=== PATIENT | male | born 1970 | race African-American/Black ===

== ENCOUNTER 2016-10-30 08:46 | Day surgery (SDC) | payer SELFPAY ==
[2016-10-30] MEDS ORDERED: INSULIN REG, HUMAN 100 UNIT/ML 3 ML VIAL (PYX) ONE (09:42)
[2016-10-30] MEDS ORDERED: METOCLOPRAMIDE HCL INJ/PF 10 MG/2 ML SDV ONE (10:02)
[2016-10-30] MEDS ORDERED: FAMOTIDINE INJ/PF 20 MG/2 ML SDV IV ONE (10:02)
[2016-10-30] MEDS ORDERED: NORMAL SALINE 500 ML IV ONE (10:15)
[2016-10-30] MEDS ORDERED: BUPIVACAINE HCL 0.25 % INJ/PF (2.5 MG/1 ML) 30 ML VIAL ONE (12:01)
[2016-10-30] MEDS ORDERED: BUPIVACAINE HCL 0.5 % INJ/PF 30 ML SDV ONE (12:01)
[2016-10-30] MEDS ORDERED: MIDAZOLAM 2 MG/2 ML INJ ONE (12:07)
[2016-10-30] MEDS ORDERED: FENTANYL CITRATE INJ/PF 100 MCG/2 ML AMPUL ONE (12:07)
[2016-10-30] MEDS ORDERED: PROPOFOL INJ 200 MG/20 ML VIAL IV ONE (12:07)
[2016-10-30] MEDS ORDERED: MORPHINE SULFATE 10 MG/ML INJ ONE (12:07)
[2016-10-30] MEDS ORDERED: BACITRACIN INJ 50,000 UNIT VIAL ONE (12:09)
[2016-10-30] MEDS ORDERED: LIDOCAINE 0.5% INJ-PF (5 MG/ML) 50 ML SDV ONE (12:17)
[2016-10-30] MEDS ORDERED: FENTANYL CITRATE INJ/PF 100 MCG/2 ML AMPUL IV PRN ×3 (12:43)
--- NOTE | 2016-10-30 12:52 | PDOC DISCHARGE SUMMARY ---
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 #2 tobacco use disorder. Date of Surgery: 10/30/16 Discharge Date: 10/30/16 Condition: Fair Treatment or Instructions: #1 activities within moderation encouraged. #2 follow up in my office by appointment in about 1 week. Call for appointment. #3 the wounds covered clean and dry until office visit. #4 hold off on school/work until evaluation in office. #5 may shower in 48 hours, keep operated area as dry as possible. #6 discharge from [facility] to when ASU criteria met. #7 medications per medication reconciliation sheet. Referrals: SALOMON HUNT MD [Primary Care Provider] - Discharge Diet: As Tolerated Respiratory Treatments at Home: Deep Breathing/Coughing Discharge Activity: Activity As Tolerated, Keep Legs Elevated Report the Following to Your Physician Immediately: Unusual Bleeding
--- NOTE | 2016-10-30 12:57 | Operative Report ---
Operative Report DATE OF SURGERY: 10/30/16 PREOPERATIVE DIAGNOSIS: #1 necrosis and left below-knee amputation site. #2 tobacco use disorder. #3 diabetes or prediabetes. #4 hypertension. POSTOPERATIVE DIAGNOSIS: #1 necrosis and left below-knee amputation site. #2 tobacco use disorder. #3 diabetes or prediabetes. #4 hypertension. OPERATION: Debridement of left below-knee amputation stump. SURGEON: MARIA LUISA JONES CABLE MAINTAINER: none ANESTHESIA: GA TISSUE REMOVED OR ALTERED: Left below-knee amputation stump COMPLICATIONS: None ESTIMATED BLOOD LOSS: 5 mL. INTRAOPERATIVE FINDINGS: Of a left below-knee amputation stump. Laterally on both sides adequate healing. In the central 3 cm soupy necrosis of tendons. The remaining tissues, after debridement were satisfactory. PROCEDURE: PROCEDURE: The left below-knee amputation was prepared with [Betadine] and draped out with sterile linen. After the"universal time-out", in which it was confirmed that the patient [did receive antibiotic], the procedure commenced. The patient was appropriately anesthetized. The wound was probed. The wound was debrided of non viable tissue using[ Rongeurs] with removal of loose debris, as well. The wound was irrigated with bacitracin. Several ralph were removed to facilitate access..The wound was now irrigated with saline and [Surgicel] placed within it, dressed with [Kerlix ] and the procedure concluded.
[2016-10-30] MEDS ORDERED: ACETAMINOPHEN 100 ML IV ONE (13:36)
[2016-10-30 15:29] VITALS: BP 177/105
== END 2016-10-30 15:15 | disposition home or self-care (01) ==
LOC: OROUT 08:46
PROVIDERS: ATTEND Surgery
PROC: 0LBR0ZZ Excision of Left Knee Tendon, Open Approach (ICD-10-PCS; principal; 2016-10-30 11:45)
DX: T81.4XXA Infection following a procedure, initial encounter (principal); E11.9 Type 2 diabetes mellitus without complications; F17.210 Nicotine dependence, cigarettes, uncomplicated; I73.9 Peripheral vascular disease, unspecified; Z88.8 Allergy status to other drugs, medicaments and biological substances; Z79.82 Long term (current) use of aspirin; Z79.899 Other long term (current) drug therapy
CPT/HCPCS: 82962; 11043; J2250; J3490; J2765; J2270; J1815; J2704; S0028; J0131; 1482; J3010

== ENCOUNTER 2016-11-20 07:33 | Emergency (ER) | payer SELFPAY ==
[2016-11-20] MEDS ORDERED: MORPHINE SULFATE 10 MG/ML INJ IV ONE ×2 (08:34→09:48)
[2016-11-20] MEDS ORDERED: NORMAL SALINE 1000 ML 1,000 ML IV PRN (08:34)
[2016-11-20] MEDS ORDERED: ONDANSETRON HCL INJ/PF 4 MG/2 ML SDV IV ONE (08:35)
[2016-11-20 09:21] LABS: ABSOLUTE BASOPHILS # (AUTO) 0.1 10^3/uL (0.0-0.2); ABSOLUTE EOSINOPHILS # (AUTO) 0.1 10^3/uL (0.0-0.6); ABSOLUTE MONOCYTES (AUTO) 0.5 10^3/uL (0.1-1.4); ABSOLUTE NEUT (AUTO) 7.4 10^3/uL (1.7-8.2); BASOPHILS % (AUTO) 0.7 % (0-2); EOSINOPHILS % (AUTO) 1.2 % (0-6); HEMATOCRIT 40.2 % (37.9-51.0); HEMOGLOBIN 13.2 g/dL (13.5-17.0); HGB HCT DIFFERENCE -0.6; LYMPHOCYTES % (AUTO) 19.9 % (13-45); MEAN CORPUSCULAR HEMOGLOBIN 27.8 pg (27.0-33.4); MEAN CORPUSCULAR HGB CONC 32.8 g/dL (32.0-36.0); MEAN CORPUSCULAR VOLUME 85 fl (80-97); MONOCYTES % (AUTO) 5.1 % (3-13); RED BLOOD COUNT 4.74 10^6/uL (4.35-5.55); RED CELL DISTRIBUTION WIDTH 13.9 % (11.5-14.0); SEGMENTED NEUTROPHILS % (AUTO) 73.1 % (42-78); WHITE BLOOD COUNT 10.2 10^3/uL (4.0-10.5)
[2016-11-20 09:23] LABS: PROTHROMBIN TIME 13.3 SEC (11.4-15.4)
[2016-11-20 09:24] LABS: PARTIAL THROMBOPLASTIN TIME 26.4 SEC (23.5-35.8)
[2016-11-20 09:36] LABS: ALANINE AMINOTRANSFERASE 28 U/L (21-72); ALBUMIN 3.7 g/dL (3.5-5.0); ALKALINE PHOSPHATASE 180 U/L (38-126); ANION GAP 15 (5-19); ASPARTATE AMINO TRANSFERASE 21 U/L (17-59); BILIRUBIN,TOTAL 0.8 mg/dL (0.2-1.3); BLOOD UREA NITROGEN 24 mg/dL (7-20); CALCIUM 9.8 mg/dL (8.4-10.2); CARBON DIOXIDE 31 mmol/L (22-30); CHLORIDE 91 mmol/L (98-107); GLUCOSE 227 mg/dL (75-110); LIPASE 336.5 U/L (23-300); POTASSIUM 3.3 mmol/L (3.6-5.0); SODIUM 137.2 mmol/L (137-145); TOTAL PROTEIN 7.7 g/dL (6.3-8.2)
[2016-11-20] MEDS ORDERED: PANTOPRAZOLE SODIUM 40 MG VIAL IV ONE (10:10)
--- NOTE | 2016-11-20 11:31 | ER Document Report ---
ED GI/ - General Chief Complaint: Abdominal Pain Stated Complaint: STOMACH PAIN Notes: Patient is a 46-year-old male presents emergency Department complaining umbilical abdominal pain and vomiting since Friday. Patient states that he has a history of chronic gastric ulcers that he normally takes Nexium for. Patient states that since Friday he hasn't been able to keep anything down with hematochezia. Patient has been localized to his umbilicus and does not radiate. Patient denies any alleviating factors. Otherwise he denies any dizziness, headache, chest pain, shortness of breath, dyspnea. Patient states his last bowel movement was closer to Friday and was normal has not had a bowel movement since. Past medical history significant for gastric ulcers, diabetes with recent left foot amputation due to Gangrene TRAVEL OUTSIDE OF THE [place] IN LAST 30 DAYS: No - Related Data Allergies/Adverse Reactions: promethazine HCl [From Phenergan] Adverse Reaction (Verified 11/20/16 07:37) Past Medical History - General Information source: Patient - Social History Smoking Status: Current Every Day Smoker Chew tobacco use (# tins/day): No Frequency of alcohol use: None Drug Abuse: None Family History: DM Patient has suicidal ideation: No Patient has homicidal ideation: No - Past Medical History Cardiac Medical History: Denies: Hx Coronary Artery Disease, Hx Heart Attack, Hx Hypertension Pulmonary Medical History: Denies: Hx Asthma, Hx Bronchitis, Hx COPD, Hx Pneumonia Neurological Medical History: Denies: Hx Cerebrovascular Accident, Hx Seizures Endocrine Medical History: Reports: Hx Diabetes Mellitus Type 1, Hx Diabetes Mellitus Type 2 - x > 10 years Renal/ Medical History: Denies: Hx Peritoneal Dialysis GI Medical History: Reports: Hx Gastritis, Hx Gastroesophageal Reflux Disease, Hx Ulcer. Denies: Hx Hiatal Hernia Musculoskeltal Medical History: Denies Hx Arthritis - Immunizations Hx Diphtheria, Pertussis, Tetanus Vaccination: Yes - 2007 Hx Pneumococcal Vaccination: 07/14/14 Review of Systems - Review of Systems Constitutional: No symptoms reported EENT: No symptoms reported Cardiovascular: No symptoms reported Respiratory: No symptoms reported Gastrointestinal: See HPI Genitourinary: No symptoms reported Male Genitourinary: No symptoms reported Musculoskeletal: No symptoms reported Skin: No symptoms reported Hematologic/Lymphatic: No symptoms reported Neurological/Psychological: No symptoms reported Physical Exam - Vital signs Vitals: Temp Pulse Resp BP Pulse Ox 97.7 F 109 H 16 121/84 98 11/20/16 07:37 11/20/16 07:37 11/20/16 07:37 11/20/16 07:37 11/20/16 07:37 - Notes Notes: PHYSICAL EXAM GENERAL: Alert, interacts well. HEAD: Normocephalic, atraumatic. EYES: Pupils equal, round, and reactive to light. Extraocular movements intact. ENT: Oral mucosa moist, tongue midline. NECK: Full range of motion. Supple. Trachea midline. LUNGS: Clear to auscultation bilaterally, no wheezes, rales, or rhonchi. No respiratory distress. HEART: Regular rate and rhythm. No murmurs, gallops, or rubs. ABDOMEN: Soft, nondistended, mild tenderness to palpation in the umbilicus.. No guarding, rebound, or rigidity.. Bowel sounds present in all 4 quadrants. EXTREMITIES: Moves all 4 extremities spontaneously, left foot amputation. Feeling well with out evidence of inflammation. No edema, radial and dorsalis pedis pulses 2/4 bilaterally. No cyanosis. NEUROLOGICAL: Alert and oriented x3. Normal speech. PSYCH: Normal affect, normal mood. SKIN: Warm, dry, normal turgor. No rashes or lesions noted. Course - Re-evaluation Re-evalutation: 11/20/16 12:15 Patient is a 46 male presented complaining of vomiting since Friday. Patient does have a known history of chronic ulcers. Patient is currently hemodynamically stable, no acute distress and afebrile. CBC did not reveal any acute leukocytosis or anemia. CMP was within normal limits, no evidence of acute renal failure or injury, elevated LFTs, elevated amylase indicating pancreatitis. Patient has not had any episodes of emesis in the department and is responded well to Zofran. 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 Per [facility] protocol and guidelines, this case was discussed with supervising physician Dr. Katina Sanchez prior to discharge - Vital Signs Vital signs: Temp Pulse Resp BP Pulse Ox 97.8 F 80 20 155/104 H 99 11/20/16 10:36 11/20/16 10:36 11/20/16 10:36 11/20/16 10:36 01/25/17 10:36 - Laboratory Result Diagrams: 11/20/16 08:57 11/20/16 08:57 Laboratory results interpreted by me: 11/20/16 11/20/16 08:57 08:57 Hgb 13.2 L Potassium 3.3 L Chloride 91 L Carbon Dioxide 31 H BUN 24 H Glucose 227 H Alkaline Phosphatase 180 H Lipase 336.5 H Discharge - Discharge Clinical Impression: Chronic gastric ulcer Qualifiers: Gastric ulcer complication status: without hemorrhage or perforation Qualified Code(s): K25.7 - Chronic gastric ulcer without hemorrhage or perforation Condition: Good Disposition: HOME, SELF-CARE Additional Instructions: ABDOMINAL PAIN: There are many causes of abdominal pain. Pain can mean a serious problem requiring surgery (such as appendicitis). It can also be an innocent problem that goes away on its own (such as a viral infection). Often, time must pass to determine the cause of pain. The physician does not feel that hospitalization is necessary, at present. Things may change within the next 24 hours. Call the doctor or come back for re- examination if any problems occur, such as: (1) Pain that becomes more severe, steady, or becomes concentrated in one specific area. Also, pain that is more severe with movement or coughing. (2) Vomiting that persists or becomes more frequent. (3) Blood in the vomitus, urine, or bowel movements. Blood in the stool may have a tarry or black appearance. (4) Shaking chills or fever greater than 100 degrees F. (5) The abdomen becomes more distended or swollen. (6) Bowel movements cease. (7) Failure to improve as expected. NORMAL EXAM AND WORKUP: At this time, your examination and workup show no significant abnormality. No significant abnormal physical findings are noted. All laboratory, EKG, and imaging (x-ray, CT scans, ultrasound) studies that were ordered show no significant abnormality. Although your examination and all studies that were ordered showed no significant abnormal finding, there are no examinations and no studies that are 100% accurate. There is always the possibility that some abnormality could exist and not be detected with physical examination or within the limits and capabilities of laboratory and other studies. You should return or follow up as you were instructed on your visit today for further evaluation if your symptoms do not resolve. PAIN MEDICATION INJECTION: You have received an injection of a pain medication. You should experience significant pain relief within 45 minutes. This drug is a narcotic - - it will impair your judgement, slow your reaction time and make you sleepy ( as well as relieve your pain). Narcotics also can cause nausea. You should not drive, work with machinery, or perform any task requiring mental alertness until all effects of the medication are gone -- six to eight hours. Do not take any alcohol, or sedatives, and do not take any other medication without checking with your physician. ANTINAUSEA MEDICATION: You have been given a medication to suppress nausea and vomiting. This type of medication can be given as a shot, pill, or suppository. It will usually last for many hours. Pills and shots usually last six to eight hours, suppositories last about 12 hours. For the typical illness, only one or two doses of the medication may be necessary. Mild lightheadedness may occur. This type of medicine can cause drowsiness. Do not drive or operate dangerous machinery while under its influence. Do not mix with alcohol. See your doctor at once if you have muscle spasms or tightness, or uncontrollable motions (particularly of the neck, mouth, or jaw). Persistent vomiting or severe lightheadedness should also be evaluated by the physician. ORAL NARCOTIC MEDICATION: You have been given a prescription for pain control. This medication is a narcotic. It's best taken with food, as nausea can result if taken on an empty stomach. Don't operate machinery or drive within six hours of taking this medication. Do not combine this medicine with alcohol, or with any medication which can cause sedation (such as cold tablets or sleeping pills) unless you get permission from the physician. Narcotics tend to cause constipation. If possible, drink plenty of fluids and eat a diet high in fiber and fruits. Please be aware that prescription narcotics also have the potential for abuse. People become addicted to these medications because of the general sense of wellbeing that they induce. This feeling along with a significant reduction in tension, anxiety, and aggression provides a stimulating seductive quality to these drugs. Once your pain is under control, we encourage you to discard your unused narcotics. FOLLOW-UP CARE: If you have been referred to a physician for follow-up care, call the physician s office for an appointment as you were instructed or within the next two days. If you experience worsening or a significant change in your symptoms, notify the physician immediately or return to the Emergency Department at any time for re-evaluation. Patient be sure to follow-up with her rice drier in the next 1-2 weeks. Prescriptions: Ondansetron [Zofran Odt 4 mg Tablet] 1 - 2 tab PO Q4H PRN #15 tab.rapdis PRN Reason: For Nausea/Vomiting Pantoprazole Sodium [Protonix] 40 mg PO DAILY #30 tablet.dr Forms: Elevated Blood Pressure Referrals: SALOMON HUNT MD [Primary Care Provider] - Follow up as needed
[2016-11-20 12:38] VITALS: BP 156/100
== END 2016-11-20 12:37 | disposition home or self-care (01) ==
LOC: ER 07:33
DX: K25.7 Chronic gastric ulcer without hemorrhage or perforation (principal); R10.33 Periumbilical pain; R11.10 Vomiting, unspecified; E11.9 Type 2 diabetes mellitus without complications; F17.200 Nicotine dependence, unspecified, uncomplicated; Z79.899 Other long term (current) drug therapy
CPT/HCPCS: 96376; 99284; 96361; 96374; 96375; 36415; 82150; 83690; 85025; 85610; 85730; 82272; 80053; J2270; S0164; J2405; J7030

== ENCOUNTER 2016-12-24 05:15 | Day surgery (SDC) | payer MEDICAID ==
[2016-12-18 12:02] LABS: HEMATOCRIT 37.3 % (37.9-51.0); HEMOGLOBIN 12.7 g/dL (13.5-17.0); HGB HCT DIFFERENCE 0.8; MEAN CORPUSCULAR HEMOGLOBIN 29.2 pg (27.0-33.4); MEAN CORPUSCULAR HGB CONC 34.2 g/dL (32.0-36.0); MEAN CORPUSCULAR VOLUME 85 fl (80-97); RED BLOOD COUNT 4.36 10^6/uL (4.35-5.55); RED CELL DISTRIBUTION WIDTH 14.4 % (11.5-14.0); WHITE BLOOD COUNT 10.2 10^3/uL (4.0-10.5)
[2016-12-18 12:25] LABS: ANION GAP 12 (5-19); BLOOD UREA NITROGEN 23 mg/dL (7-20); CALCIUM 10.4 mg/dL (8.4-10.2); CARBON DIOXIDE 24 mmol/L (22-30); CHLORIDE 103 mmol/L (98-107); CREATININE RESULT 0.93 mg/dL (0.52-1.25); GLUCOSE 163 mg/dL (75-110); POTASSIUM 4.8 mmol/L (3.6-5.0); SODIUM 139.4 mmol/L (137-145)
--- NOTE | 2016-12-19 08:18 | EKG REPORT ---
SEVERITY:- OTHERWISE NORMAL ECG - SINUS RHYTHM BORDERLINE LEFT AXIS DEVIATION : Confirmed by: Molly Vazquez MD 19-Dec-2016 08:16:51
[~2016-12-24 05:15] MED LIST: CEFAZOLIN 1 GM/D5W RTU 1 GM/50 ML RTUPB IV PRN; CEFAZOLIN SODIUM 1 GM in DEXTROSE 5%-WATER 50 ML IV PRN; LIDOCAINE 0.5% INJ-PF (5 MG/ML) 50 ML SDV INJ PRN; RINGERS SOLUTION,LACTATED 1,000 ML IV PRN
[2016-12-24] MEDS ORDERED: ALBUTEROL SULFATE 0.083% NEB 2.5 MG/3 ML AMPUL NEB ONE (06:16)
[2016-12-24] MEDS ORDERED: BACITRACIN INJ 50,000 UNIT VIAL ONE (06:35)
[2016-12-24] MEDS ORDERED: LIDOCAINE 0.5% INJ-PF (5 MG/ML) 50 ML SDV ONE (06:35)
[2016-12-24] MEDS ORDERED: BUPIVACAINE HCL 0.25 % INJ/PF (2.5 MG/1 ML) 30 ML VIAL ONE (06:35)
[2016-12-24] MEDS ORDERED: KETAMINE HCL INJ 500 MG/10 ML VIAL ONE (06:44)
[2016-12-24] MEDS ORDERED: MIDAZOLAM 2 MG/2 ML INJ ONE (06:44)
[2016-12-24] MEDS ORDERED: FENTANYL CITRATE INJ/PF 250 MCG/5 ML AMPULE ONE (06:44)
[2016-12-24] MEDS ORDERED: PROPOFOL INJ 200 MG/20 ML VIAL IV ONE (06:45)
[2016-12-24] MEDS ORDERED: INSULIN REG, HUMAN 100 UNIT/ML 3 ML VIAL (PYX) ONE (06:47)
[2016-12-24] MEDS ORDERED: METOCLOPRAMIDE HCL INJ/PF 10 MG/2 ML SDV ONE (06:48)
[2016-12-24] MEDS ORDERED: FAMOTIDINE INJ/PF 20 MG/2 ML SDV IV ONE (06:48)
[2016-12-24] MEDS ORDERED: SILVER SULFADIAZINE 1% CREAM 25 GM ONE (07:12)
[2016-12-24] MEDS ORDERED: COLLAGENASE CLOSTRIDIUM HIST. OINT 30 GM ONE (07:14)
[2016-12-24] MEDS ORDERED: MEPERIDINE HCL/PF INJ 25 MG/1 ML DISP.SYRIN IV PRN (07:52)
[2016-12-24] MEDS ORDERED: FENTANYL CITRATE INJ/PF 100 MCG/2 ML AMPUL IV PRN ×3 (07:52)
[2016-12-24] MEDS ORDERED: ONDANSETRON HCL INJ/PF 4 MG/2 ML SDV IV PRN (07:52)
[2016-12-24] MEDS ORDERED: DIPHENHYDRAMINE HCL 50 MG/ML VIAL IV PRN (07:52)
[2016-12-24] MEDS ORDERED: MORPHINE SULFATE 10 MG/ML INJ IV PRN (07:52)
[2016-12-24] MEDS ORDERED: OXYCODONE-ACETAMINOPHEN 5-325 MG TABLET PO PRN ×2 (07:52)
--- NOTE | 2016-12-24 08:54 | PDOC DISCHARGE SUMMARY ---
Discharge Summary (SDC) - Discharge Final Diagnosis: #1 necrotic left below-knee amputation site. #2 diabetes mellitus P #3 hypertension. #4 tobacco use disorder. Date of Surgery: 12/24/16 Discharge Date: 12/24/16 Condition: Good Treatment or Instructions: #1 activities within moderation encouraged. #2 follow up in my office by appointment in about 1 week. Call for appointment. #3 the wounds covered clean and dry until office visit. #4 hold off on school/work until evaluation in office. #5 may shower in 48 hours, keep operated area as dry as possible. #6 discharge from ambulatory when ASU criteria met. #7 medications per medication reconciliation sheet. #8 May have one Percocet up to every 2 hours when necessary for pain greater than 4 out of 10 while in the ASU Referrals: SALOMON HUNT MD [Primary Care Provider] - Discharge Diet: As Tolerated Respiratory Treatments at Home: Deep Breathing/Coughing Discharge Activity: Activity As Tolerated Report the Following to Your Physician Immediately: Shortness of Breath, Unusual Bleeding
--- NOTE | 2016-12-24 10:14 | Operative Report ---
Operative Report DATE OF SURGERY: 12/24/16 PREOPERATIVE DIAGNOSIS: #1 necrotic left below-knee amputation site. #2 diabetes mellitus P. #3 hypertension. #4 tobacco use disorder. POSTOPERATIVE DIAGNOSIS: #1 necrotic left below-knee amputation site. #2 diabetes mellitus P. #3 hypertension. #4 tobacco use disorder. OPERATION: Debridement of left below-knee amputation stump. SURGEON: MARIA LUISA JONES TAPE LIBRARIAN: DANIELLE VIGIL ANESTHESIA: Moderate Sedation TISSUE REMOVED OR ALTERED: Necrotic skin and subcutaneous tissue COMPLICATIONS: None ESTIMATED BLOOD LOSS: 5 mL. INTRAOPERATIVE FINDINGS: Of a mostly healed left below-knee amputation stump. An open area in the middle is about 2 cm across with some necrotic skin and subcutaneous tissues. It does seem to have healed deep, the bone is far away. Still in place and these were removed. PROCEDURE: PROCEDURE: The [left foot ]was prepared with [Betadine] and draped out with sterile linen. After the"universal time-out", in which it was confirmed that the patient [did receive antibiotic], the procedure commenced. The patient was appropriately anesthetized. The wound was probed. The wound was debrided of non viable tissue using curettes with removal of loose debris, as well. The wound was irrigated with [ Peroxide] .The wound was now irrigated with saline and Xeroform placed on it, dressed with [Kerlix] and the procedure concluded. The bindery assistant provided retraction, thus facilitating the operative view. Controlled bleeding. Cleaned skin and applied dressings.
[2016-12-24 11:18] VITALS: BP 176/110
[2016-12-24] MEDS ORDERED: LIDOCAINE 2% INJ-PF (20 MG/ML) 10 ML AMPUL ONE (12:24)
== END 2016-12-24 09:55 | disposition home or self-care (01) ==
LOC: OROUT 05:15
PROVIDERS: ATTEND Surgery
PROC: 0JBP0ZZ Excision of Left Lower Leg Subcutaneous Tissue and Fascia, Open Approach (ICD-10-PCS; principal; 2016-12-24 07:30)
DX: Z89.512 Acquired absence of left leg below knee (principal); E11.9 Type 2 diabetes mellitus without complications; I10 Essential (primary) hypertension; I73.9 Peripheral vascular disease, unspecified; F17.210 Nicotine dependence, cigarettes, uncomplicated; Z79.899 Other long term (current) drug therapy; Z79.82 Long term (current) use of aspirin; Z88.8 Allergy status to other drugs, medicaments and biological substances
CPT/HCPCS: 93005; 36415; 82962; 85027; 80048; 93010; 94640; 11042; J2250; J3490 ×4; J0690; J3010; J2765; J1815; S0020; J2704; S0028; 400

== ENCOUNTER 2018-10-29 09:01 | Emergency (ER) | payer SELFPAY ==
[2018-10-29] MEDS ORDERED: METOCLOPRAMIDE HCL ORAL SOLN 10 MG/10 ML UDCUP PO ONE (09:30)
[2018-10-29] MEDS ORDERED: MAG HYDROX/AL HYDROX/SIMETH SUSP 30 ML UDCUP PO ONE (09:30)
[2018-10-29] MEDS ORDERED: LIDOCAINE 2% VISCOUS SOLN 20 ML UDCUP PO ONE (09:30)
--- NOTE | 2018-10-29 09:31 | ER Document Report ---
ED Medical Screen (RME) - General Chief Complaint: Abdominal Pain Stated Complaint: ABDOMINAL PAIN Time Seen by Provider: 10/29/18 09:30 TRAVEL OUTSIDE OF THE [place] IN LAST 30 DAYS: No - Related Data Allergies/Adverse Reactions: promethazine HCl [From Phenergan] Adverse Reaction (Verified 10/29/18 09:02) Past Medical History - Social History Frequency of alcohol use: None Drug Abuse: None - Past Medical History Cardiac Medical History: Denies: Hx Coronary Artery Disease, Hx Heart Attack, Hx Hypertension Pulmonary Medical History: Denies: Hx Asthma, Hx Bronchitis, Hx COPD, Hx Pneumonia Neurological Medical History: Denies: Hx Cerebrovascular Accident, Hx Seizures Endocrine Medical History: Reports: Hx Diabetes Mellitus Type 1, Hx Diabetes Mellitus Type 2 - x > 10 years Renal/ Medical History: Denies: Hx Peritoneal Dialysis GI Medical History: Reports: Hx Gastritis, Hx Gastroesophageal Reflux Disease, Hx Ulcer. Denies: Hx Hiatal Hernia Musculoskeltal Medical History: Denies Hx Arthritis - Immunizations Hx Diphtheria, Pertussis, Tetanus Vaccination: Yes - 2007 Physical Exam - Vital signs Vitals: Temp Pulse Resp BP Pulse Ox 97.9 F 92 16 115/77 100 10/29/18 09:11 10/29/18 09:11 10/29/18 09:11 10/29/18 09:11 10/29/18 09:11 Course - Re-evaluation Re-evalutation: 10/29/18 09:31 48-year-old male with recurrent abdominal pain. Has been started on blood pressure medications as well which he says normally he might. He is tender left upper quadrant. I have seen and performed a rapid medical screening examination on this patient, workup has been initiated however there will require further evaluation reassessment and disposition determination from a secondary provider. - Vital Signs Vital signs: Temp Pulse Resp BP Pulse Ox 97.9 F 92 16 115/77 100 10/29/18 09:11 10/29/18 09:11 10/29/18 09:11 10/29/18 09:11 10/29/18 09:11 Doctor's Discharge - Discharge Referrals: SALOMON HUNT MD [Primary Care Provider] - Follow up as needed
[2018-10-29 09:52] LABS: ABSOLUTE EOSINOPHILS # (AUTO) 0.1 10^3/uL (0.0-0.6); ABSOLUTE LYMPHOCYTES (AUTO) 1.7 10^3/uL (0.5-4.7); ABSOLUTE MONOCYTES (AUTO) 0.3 10^3/uL (0.1-1.4); ABSOLUTE NEUT (AUTO) 7.7 10^3/uL (1.7-8.2); BASOPHILS % (AUTO) 0.5 % (0-2); HEMATOCRIT 36.2 % (37.9-51.0); HEMOGLOBIN 12.3 g/dL (13.5-17.0); MEAN CORPUSCULAR HEMOGLOBIN 29.4 pg (27.0-33.4); MEAN CORPUSCULAR HGB CONC 33.9 g/dL (32.0-36.0); MEAN CORPUSCULAR VOLUME 87 fl (80-97); MONOCYTES % (AUTO) 3.3 % (3-13); PLATELET COUNT 314 10^3/uL (150-450); RED BLOOD COUNT 4.17 10^6/uL (4.35-5.55); RED CELL DISTRIBUTION WIDTH 12.2 % (11.5-14.0); SEGMENTED NEUTROPHILS % (AUTO) 78.2 % (42-78); TOTAL CELLS COUNTED % (AUTO) 100 %; WHITE BLOOD COUNT 9.8 10^3/uL (4.0-10.5)
--- NOTE | 2018-10-29 09:58 | ER Document Report ---
ED General - General Chief Complaint: Abdominal Pain Stated Complaint: ABDOMINAL PAIN Time Seen by Provider: 10/29/18 09:30 Mode of Arrival: Ambulatory TRAVEL OUTSIDE OF THE [place] IN LAST 30 DAYS: No - HPI Notes: 48-year-old male with a history of GERD, type 2 diabetic hypertension as well as constipation presents ED with complaints constipation for the last few days. Patient was concerned about not having a bowel movement as well as having slight abdominal pain. Patient has been seen by Dr. Golden, configuration management advisor 2 months ago for having GERD, did have an endoscopy which was negative for any acute findings. Patient states he has been eating a high processed diet over the holidays. Has not tried any [id number]-[id number] stool softeners or laxatives. Reports he is passing flatus. Pt not noncompliant with his diabetic medication eating and drinking without issues. Has sometimes taken his omeprazole but commonly forgets. Denies fevers, chills, chest pain,palpitations, shortness of breath, dyspnea, nausea, vomiting, diarrhea, hematuria,blurred vision, double vision, loss of vision, speech changes, LH, dizziness, syncope, headaches, wheezing, ST, URI, neck pain, weakness, bowel or bladder dysfunction, saddle anesthesia, numbness or tingling in bilateral upper or lower extremities equally, muscle paralysis, weakness in bilateral upper or lower extremities eq ually or rash. - Related Data Allergies/Adverse Reactions: promethazine HCl [From Phenergan] Adverse Reaction (Verified 10/29/18 09:02) Past Medical History - General Information source: Patient - Social History Smoking Status: Current Every Day Smoker Frequency of alcohol use: None Drug Abuse: None Family History: DM Patient has suicidal ideation: No Patient has homicidal ideation: No - Past Medical History Cardiac Medical History: Denies: Hx Coronary Artery Disease, Hx Heart Attack, Hx Hypertension Pulmonary Medical History: Denies: Hx Asthma, Hx Bronchitis, Hx COPD, Hx Pneumonia Neurological Medical History: Denies: Hx Cerebrovascular Accident, Hx Seizures Endocrine Medical History: Reports: Hx Diabetes Mellitus Type 1, Hx Diabetes Mellitus Type 2 - x > 10 years Renal/ Medical History: Denies: Hx Peritoneal Dialysis GI Medical History: Reports: Hx Gastritis, Hx Gastroesophageal Reflux Disease, Hx Ulcer. Denies: Hx Hiatal Hernia Musculoskeletal Medical History: Denies Hx Arthritis - Immunizations Hx Diphtheria, Pertussis, Tetanus Vaccination: Yes - 2007 Hx Pneumococcal Vaccination: 07/14/14 Review of Systems - Review of Systems Constitutional: No symptoms reported EENT: No symptoms reported Cardiovascular: No symptoms reported Respiratory: No symptoms reported Gastrointestinal: See HPI Genitourinary: No symptoms reported Male Genitourinary: No symptoms reported Musculoskeletal: No symptoms reported Skin: No symptoms reported Hematologic/Lymphatic: No symptoms reported Neurological/Psychological: No symptoms reported Physical Exam - Vital signs Vitals: Temp Pulse Resp BP Pulse Ox 97.9 F 92 16 115/77 100 10/29/18 09:11 10/29/18 09:11 10/29/18 09:11 10/29/18 09:11 10/29/18 09:11 - Notes Notes: PHYSICAL EXAMINATION: GENERAL: Well-appearing, well-nourished and in no acute distress. HEAD: Atraumatic, normocephalic. EYES: Pupils equal round and reactive to light, extraocular movements intact, sclera anicteric, conjunctiva are normal. ENT: nares patent, oropharynx clear without exudates. Moist mucous membranes. NECK: Normal range of motion, supple without lymphadenopathy LUNGS: Breath sounds clear to auscultation bilaterally and equal. No wheezes rales or rhonchi. HEART: Regular rate and rhythm without murmurs ABDOMEN: Soft, nontender, normoactive bowel sounds. No guarding, no rebound. No masses appreciated. CVA tenderness appreciated bilaterally EXTREMITIES: Normal range of motion, no pitting or edema. No cyanosis. NEUROLOGICAL: No focal neurological deficits. Moves all extremities spontaneously and on command. PSYCH: Normal mood, normal affect. SKIN: Warm, Dry, normal turgor, no rashes or lesions noted. Course - Re-evaluation Re-evalutation: 10/30/18 14:02 48-year-old male afebrile mood stable mild abdominal pain and not having a bowel movement in the last 3-4 days. Negative for leukocytosis or anemia, CMP negative for hepatic or renal dysfunction, lipase normal. Abdominal x-ray negative for free air, nonobstructive bowel gas pattern. Patient noted to have a large amount of stool within the large intestine and colon, no impaction. Patient's blood sugar elevated, in the 450s, patient reports he was not taking his diabetic medication, IV fluids given as well as insulin, on repeat Accu- Chek, patient's blood sugars still in the 400s, no other liter of IV fluids given as well as 10 mg of insulin, and recheck blood sugar in the 250s. Patient educated about taking his diabetic medication as well as his acid reflux medication. Advised him to follow-up with gastroenterology as well as his primary care provider. Advised to increase hydration, follow a high-fiber diet, take asia-dge-yyilzky stool softeners. Patient has a typical pattern of not having a bowel movement for 3-4 days which is his usual. Reports he came to the ED because his wanted him checked out. Patient was seen today for abdominal pain. After review of laboratory studies and radiologic studies there are no signs of acute abdomen or other life-threatening ailments. I did consider acute appendicitis, peritonitis, urinary tract infection, cholelithiasis, cholecystitis, abdominal aortic aneurysm, intestinal obstruction, diverticulitis/ diverticulosis and pyelonephritis. At this time I feel the patient is stable for discharge is instructed to follow up with her primary care physician in 2-3 days return to emergency department for worsening symptoms or lack of resolution of symptoms in the next 24-48 hours. - Vital Signs Vital signs: Temp Pulse Resp BP Pulse Ox 97.9 F 98 16 132/90 H 100 10/29/18 09:11 10/29/18 10:20 10/29/18 09:11 10/29/18 10:20 10/29/18 09:11 - Laboratory Result Diagrams: 10/29/18 09:39 10/29/18 09:39 Laboratory results interpreted by me: 10/29/18 10/29/18 10/29/18 09:39 09:39 11:45 RBC 4.17 L Hgb 12.3 L Hct 36.2 L Seg Neutrophils % 78.2 H Sodium 133.8 L BUN 25 H Glucose 444 H* POC Glucose 412 H* Alkaline Phosphatase 196 H Lipase 747.1 H 10/29/18 13:31 RBC Hgb Hct Seg Neutrophils % Sodium BUN Glucose POC Glucose 256 H Alkaline Phosphatase Lipase Discharge - Discharge Clinical Impression: Hyperglycemia Constipation Qualifiers: Constipation type: other constipation type Qualified Code(s): K59.09 - Other constipation Condition: Stable Disposition: HOME, SELF-CARE Instructions: Abdominal Pain ([facility]), Constipation ([facility]), Hyperglycemia ([facility]) Additional Instructions: Return immediately for any new or worsening symptoms. Follow up with primary care provider, call tomorrow to make followup appointment. Forms: Return to Work Referrals: SALOMON HUNT MD [Primary Care Provider] - Follow up tomorrow DERIAN SCHUMACHER MD [ACTIVE STAFF] - Follow up as needed
--- NOTE | 2018-10-29 10:08 | RADIOLOGY REPORT (SQ) ---
EXAM DESCRIPTION: ABDOMEN 2 VIEWS COMPLETED DATE/TIME: 10/29/2018 9:59 am REASON FOR STUDY: constipation COMPARISON: 09/20/2015 NUMBER OF VIEWS: Two views. TECHNIQUE: Supine and erect/decubitus radiographic images of the abdomen acquired. LIMITATIONS: None. FINDINGS: FREE AIR: None. No abnormal gas collections. LUNG BASES: Clear. BOWEL GAS PATTERN: Large burden of stool in the left and right colon with dense stool balls in the re ctum. CALCIFICATIONS: No suspicious calcifications. SOFT TISSUES: No gross mass or suggestion of organomegaly. HARDWARE: None in the abdomen. BONES: No acute fracture. No worrisome bone lesions. OTHER: No other significant finding. IMPRESSION: Nonobstructive pattern of bowel gas. No free air in the abdomen. Large burden of stool in the left and right colon with dense stool balls in the rectum. TECHNICAL DOCUMENTATION: JOB ID: [id number] [email or web address]- All Rights Reserved Reading location - IP/workstation name: [email or web address]
[2018-10-29 10:22] VITALS: BP 132/90
[2018-10-29 10:24] LABS: ALANINE AMINOTRANSFERASE 23 U/L (21-72); ALKALINE PHOSPHATASE 196 U/L (38-126); ANION GAP 10 (5-19); ASPARTATE AMINO TRANSFERASE 22 U/L (17-59); BILIRUBIN,DIRECT 0.3 mg/dL (0.0-0.4); BILIRUBIN,TOTAL 0.4 mg/dL (0.2-1.3); BLOOD UREA NITROGEN 25 mg/dL (7-20); CALCIUM 9.9 mg/dL (8.4-10.2); CARBON DIOXIDE 25 mmol/L (22-30); CHLORIDE 99 mmol/L (98-107); LIPASE 747.1 U/L (23-300); POTASSIUM 4.9 mmol/L (3.6-5.0); SODIUM 133.8 mmol/L (137-145); TOTAL PROTEIN 7.3 g/dL (6.3-8.2)
[2018-10-29 10:35] LABS: GLUCOSE 444 mg/dL (75-110)
[2018-10-29] MEDS ORDERED: NORMAL SALINE 1000 ML 1,000 ML IV ONE (10:44)
[2018-10-29] MEDS ORDERED: INSULIN REG, HUMAN 100 UNIT/ML 3 ML VIAL (PYX) IV ONE ×2 (10:44→11:54)
[2018-10-29] MEDS ORDERED: NORMAL SALINE 1000 ML 1,000 ML IV PRN (11:53)
== END 2018-10-29 13:54 | disposition home or self-care (01) ==
LOC: ER 09:01
DX: E11.65 Type 2 diabetes mellitus with hyperglycemia (principal); R10.9 Unspecified abdominal pain; K59.09 Other constipation; K21.9 Gastro-esophageal reflux disease without esophagitis; F17.200 Nicotine dependence, unspecified, uncomplicated
CPT/HCPCS: 99284; 96360; 96361; 36415; 82962; 83690; 85025; 80053; 74019; J3490; J1815; J7030

== ENCOUNTER 2019-08-04 13:21 | Emergency (ER) | payer OTHER ==
[2019-08-04 13:40] VITALS: BP 124/76
--- NOTE | 2019-08-04 14:02 | ER Document Report ---
ED Medical Screen (RME) - General Chief Complaint: Abdominal Pain Stated Complaint: ABDOMINAL PAIN Time Seen by Provider: 08/04/19 13:49 Primary Care Provider: SALOMON HUNT MD [Primary Care Provider] - Follow up as needed Notes: Patient is a 49-year-old male who presents the emergency department with a chief complaint of abdominal pain. The pain is in his right lower quadrant. He states that every time he eats he feels the food gets stuck in his right lower quadrant. He was placed on Dulcolax. He takes them as needed and sometimes takes 3 pills at a time, but does not take Dulcolax every day. Patient's last bowel movement was 3 days ago. Patient states that he eats a lot of fast food. He does not drink a lot of water. Exam: Soft mildly tender right lower quadrant. I have greeted and performed a rapid initial assessment of this patient. A comprehensive ED assessment and evaluation of the patient, analysis of test results and completion of medical decision making process will be conducted by an additional ED providers. TRAVEL OUTSIDE OF THE [place] IN LAST 30 DAYS: No - Related Data Allergies/Adverse Reactions: promethazine HCl [From Phenergan] Adverse Reaction (Verified 10/29/18 09:02) Past Medical History - Past Medical History Cardiac Medical History: Denies: Hx Coronary Artery Disease, Hx Heart Attack, Hx Hypertension Pulmonary Medical History: Denies: Hx Asthma, Hx Bronchitis, Hx COPD, Hx Pneumonia Neurological Medical History: Denies: Hx Cerebrovascular Accident, Hx Seizures Endocrine Medical History: Reports: Hx Diabetes Mellitus Type 1, Hx Diabetes Mellitus Type 2 - x > 10 years Renal/ Medical History: Denies: Hx Peritoneal Dialysis GI Medical History: Reports: Hx Gastritis, Hx Gastroesophageal Reflux Disease, Hx Ulcer. Denies: Hx Hiatal Hernia Musculoskeltal Medical History: Denies Hx Arthritis - Immunizations Hx Diphtheria, Pertussis, Tetanus Vaccination: Yes - 2007 Physical Exam - Vital signs Vitals: Temp Pulse Resp BP Pulse Ox 97.9 F 81 20 124/76 98 08/04/19 13:39 08/04/19 13:39 08/04/19 13:39 08/04/19 13:39 08/04/19 13:39 Course - Vital Signs Vital signs: Temp Pulse Resp BP Pulse Ox 97.9 F 81 20 124/76 98 08/04/19 13:39 08/04/19 13:39 08/04/19 13:39 08/04/19 13:39 08/04/19 13:39 Doctor's Discharge - Discharge Referrals: SALOMON HUNT MD [Primary Care Provider] - Follow up as needed
--- NOTE | 2019-08-04 14:19 | RADIOLOGY REPORT (SQ) ---
EXAM DESCRIPTION: KUB/ABDOMEN (SINGLE VIEW) COMPLETED DATE/TIME: 08/04/2019 2:09 pm REASON FOR STUDY: abd pain; constipation COMPARISON: 10/29/2018 NUMBER OF VIEWS: One view. TECHNIQUE: Supine radiographic image of the abdomen acquired. LIMITATIONS: None. FINDINGS: BOWEL GAS PATTERN: Normal bowel gas pattern. No dilated loops. Moderate formed stool thro ughout the colon. CALCIFICATIONS: No suspicious calcifications. SOFT TISSUES: No gross mass or suggestion of organomegaly. HARDWARE: None in the abdomen. BONES: No acute fracture. No worrisome bone lesions. OTHER: No other significant finding. IMPRESSION: No evidence of acute intra-abdominal/pelvic process. Moderate formed stool throughout t he colon. TECHNICAL DOCUMENTATION: JOB ID: [id number] [employer]- All Rights Reserved Reading location - IP/workstation name: [email or web address]
--- NOTE | 2019-08-05 03:13 | ER Document Report ---
Entered by KEO MYERS SCRIBE 08/04/19 [id number] Acting as scribe for:OFELIA ODELL DO ED GI/ - General Chief Complaint: Constipation Stated Complaint: ABDOMINAL PAIN Time Seen by Provider: 08/04/19 13:49 Primary Care Provider: SALOMON HUNT MD [Primary Care Provider] - Follow up in 3-5 days Mode of Arrival: Ambulatory Information source: Patient Notes: Patient is a 49-year-old male status post left BKA who presents to the emergency department today with complaints of constipation. Patient states he has no pain associated with this. Patient states every time he eats food he feels like "it gets stuck right here" and he points to the right side of his abdomen. Patient states this has been going on for several months. Patient states he can only usually have bowel movements if he takes Dulcolax. Patient states his last bowel movement was 4 days ago. Patient mentions that he knows he does not drink enough water. Patient also adds that he has numbness and tingling in his right foot which has been there for several months. Patient denies any flank pain, urinary symptoms, vomiting, diarrhea, or fevers. TRAVEL OUTSIDE OF THE [place] IN LAST 30 DAYS: No - Related Data Allergies/Adverse Reactions: promethazine HCl [From Phenergan] Adverse Reaction (Verified 10/29/18 09:02) Past Medical History - General Information source: Patient - Social History Smoking Status: Current Every Day Smoker Cigarette use (# per day): Yes Frequency of alcohol use: None Drug Abuse: None Lives with: Family Family History: Reviewed & Not Pertinent, DM Patient has suicidal ideation: No Patient has homicidal ideation: No Endocrine Medical History: Reports: Hx Diabetes Mellitus Type 2 GI Medical History: Reports: Hx Gastritis, Hx Gastroesophageal Reflux Disease, Hx Ulcer Past Surgical History: Reports: Other - left BKA - Immunizations Hx Diphtheria, Pertussis, Tetanus Vaccination: Yes - 2007 Hx Pneumococcal Vaccination: 07/14/14 Review of Systems - Review of Systems Constitutional: denies: Fever EENT: No symptoms reported Cardiovascular: No symptoms reported Respiratory: No symptoms reported Gastrointestinal: See HPI, Constipation. denies: Diarrhea, Vomiting Genitourinary: denies: Dysuria, Flank pain Male Genitourinary: No symptoms reported Musculoskeletal: No symptoms reported Skin: No symptoms reported Hematologic/Lymphatic: No symptoms reported Neurological/Psychological: See HPI, Other - right foot feels numb and tingly -: Yes All other systems reviewed and negative Physical Exam - Vital signs Vitals: Temp Pulse Resp BP Pulse Ox 97.9 F 81 20 124/76 98 08/04/19 13:39 08/04/19 13:39 08/04/19 13:39 08/04/19 13:39 08/04/19 13:39 Interpretation: Normal - General General appearance: Appears well, Alert - HEENT Head: Normocephalic, Atraumatic Eyes: Normal Pupils: PERRL - Respiratory Respiratory status: No respiratory distress Chest status: Nontender Breath sounds: Normal Chest palpation: Normal - Cardiovascular Rhythm: Regular Heart sounds: Normal auscultation Murmur: No - Abdominal Inspection: Normal Distension: No distension Bowel sounds: Normal Tenderness: Nontender Organomegaly: No organomegaly - Back Back: Normal, Nontender - Extremities General upper extremity: Normal inspection, Nontender, Normal color, Normal ROM, Normal temperature General lower extremity: Normal inspection, Nontender, Normal color, Normal ROM, Normal temperature, Normal weight bearing, Other - Left BKA Excellent capillary refill bilaterally. Pulses intact throughout.. No: Rony's sign - Neurological Neuro grossly intact: Yes Cognition: Normal Orientation: AAOx4 Slater Coma Scale Eye Opening: Spontaneous Sadie Coma Scale Verbal: Oriented Slater Coma Scale Motor: Obeys Commands Sadie Coma Scale Total: 15 Speech: Normal Motor strength normal: LUE, RUE, LLE, RLE Sensory: Normal - Psychological Associated symptoms: Normal affect, Normal mood - Skin Skin Temperature: Warm Skin Moisture: Dry Skin Color: Normal Course - Re-evaluation Re-evalutation: Patient is a pleasant 49-year-old male who comes in come complaining of feeling of fullness. Patient states he has been constipated and also complaining of pain in right leg. Patient is a BKA on the left. Pain is consistent with neuropathy. No acute findings on x-ray but patient does appear constipated. Encouraged to take Colace twice a day and drink more water. Otherwise vitals are stable. Benign abdominal exam. No evidence for arterial insufficiency. Stable for discharge. Return if any further concerns. Understands and agrees with plan. Grateful for care. - Vital Signs Vital signs: Temp Pulse Resp BP Pulse Ox 97.9 F 81 20 124/76 98 08/04/19 13:39 08/04/19 13:39 08/04/19 13:39 08/04/19 13:39 08/04/19 13:39 Discharge - Discharge Clinical Impression: Neuropathy Constipation Qualifiers: Constipation type: unspecified constipation type Qualified Code(s): K59.00 - Constipation, unspecified Condition: Stable Disposition: HOME, SELF-CARE Instructions: Constipation ([facility]), Neuropathy ([facility]) Prescriptions: Docusate Sodium [Colace 100 mg Capsule] 100 mg PO BID #60 capsule Gabapentin [Neurontin 300 mg Capsule] 300 mg PO Q12 #60 capsule Referrals: SALOMON HUNT MD [Primary Care Provider] - Follow up in 3-5 days I personally performed the services described in the documentation, reviewed and edited the documentation which was dictated to the scribe in my presence, and it accurately records my words and actions.
== END 2019-08-04 18:00 | disposition home or self-care (01) ==
LOC: ER 13:21
DX: G62.9 Polyneuropathy, unspecified (principal); K59.00 Constipation, unspecified; R10.9 Unspecified abdominal pain; E11.9 Type 2 diabetes mellitus without complications; F17.210 Nicotine dependence, cigarettes, uncomplicated; Z89.512 Acquired absence of left leg below knee
CPT/HCPCS: 74018; 99284

== ENCOUNTER 2020-03-31 06:59 | Inpatient (IN) | payer SELFPAY ==
[2020-03-31 07:54] LABS: ABSOLUTE EOSINOPHILS # (AUTO) 0.2 10^3/uL (0.0-0.6); ABSOLUTE MONOCYTES (AUTO) 0.7 10^3/uL (0.1-1.4); ABSOLUTE NEUT (AUTO) 10.2 10^3/uL (1.7-8.2); BASOPHILS % (AUTO) 0.4 % (0-2); EOSINOPHILS % (AUTO) 1.6 % (0-6); HEMATOCRIT 23.7 % (37.9-51.0); LYMPHOCYTES % (AUTO) 8.4 % (13-45); MEAN CORPUSCULAR HGB CONC 32.2 g/dL (32.0-36.0); MEAN CORPUSCULAR VOLUME 84 fl (80-97); MONOCYTES % (AUTO) 5.6 % (3-13); PLATELET COUNT 392 10^3/uL (150-450); RED BLOOD COUNT 2.83 10^6/uL (4.35-5.55); RED CELL DISTRIBUTION WIDTH 14.4 % (11.5-14.0); TOTAL CELLS COUNTED % (AUTO) 100 %; WHITE BLOOD COUNT 12.1 10^3/uL (4.0-10.5)
[2020-03-31 07:58] LABS: HEMOGLOBIN 7.6 g/dL (13.5-17.0)
[2020-03-31 08:15] LABS: ALBUMIN 2.8 g/dL (3.5-5.0); ALKALINE PHOSPHATASE 90 U/L (38-126); ANION GAP 6 (5-19); ASPARTATE AMINO TRANSFERASE 24 U/L (17-59); BILIRUBIN,TOTAL 0.3 mg/dL (0.2-1.3); BLOOD UREA NITROGEN 30 mg/dL (7-20); CALCIUM 8.4 mg/dL (8.4-10.2); CARBON DIOXIDE 30 mmol/L (22-30); CHLORIDE 103 mmol/L (98-107); GLUCOSE 177 mg/dL (75-110); POTASSIUM 3.1 mmol/L (3.6-5.0); TOTAL PROTEIN 6.4 g/dL (6.3-8.2)
[2020-03-31] MEDS ORDERED: POTASSIUM CHLORIDE 10 MEQ TABLET.ER PO ONE (09:27)
--- NOTE | 2020-03-31 09:29 | ER Document Report ---
ED Respiratory Problem - General Chief Complaint: Shortness Of Breath Stated Complaint: SHORTNESS OF BREATH,COUGH,LEG SWELLING Time Seen by Provider: 03/31/20 08:48 Mode of Arrival: Ambulatory Information source: Patient Notes: Patient presents with a one-week history of shortness of breath and nonproductive cough. Patient states that he is unable to sleep lying supine. Patient denies any fever nausea vomiting or diarrhea. Patient denies any chest pain or abdominal pain. Patient does complain of swelling to his right lower extremity for the past week. Patient states he was just discharged from a hospital in [place] on 03/28/2020 for a leg infection. Patient does have his discharge paperwork with him which demonstrates that patient was treated for congestive heart failure, acute kidney injury, bilateral pleural effusion, shortness of breath and an end STEMI in addition to his leg infection. Patient denies having any knowledge of these additional diagnoses and only reports a pre vious history of diabetes. Patient had been discharged with prescriptions for Eliquis, aspirin, Coreg, Lasix and lisinopril although denies starting any of these medications. TRAVEL OUTSIDE OF THE [place] IN LAST 30 DAYS: No - HPI Patient complains to provider of: Cough, Short of breath Onset: Last week Duration: Worse/persistent Pain Level: Denies Sputum amount: None Associated symptoms: Cough, Short of breath, Other - Swelling to extremities. 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 Lives with: Family Family History: Reviewed & Not Pertinent, DM Patient has homicidal ideation: No - Past Medical History Cardiac Medical History: Reports: Hx Congestive Heart Failure, Hx Heart Attack Denies: Hx Coronary Artery Disease, Hx Hypertension Pulmonary Medical History: Denies: Hx Asthma, Hx Bronchitis, Hx COPD, Hx Pneumonia Neurological Medical History: Denies: Hx Cerebrovascular Accident, Hx Seizures Endocrine Medical History: Reports: Hx Diabetes Mellitus Type 2 Renal/ Medical History: Denies: Hx Peritoneal Dialysis GI Medical History: Reports: Hx Gastritis, Hx Gastroesophageal Reflux Disease, Hx Ulcer. Denies: Hx Hiatal Hernia Musculoskeletal Medical History: Denies Hx Arthritis Past Surgical History: Reports: Hx Orthopedic Surgery, Other - left BKA - Immunizations Hx Diphtheria, Pertussis, Tetanus Vaccination: Yes - 2007 Hx Pneumococcal Vaccination: 07/14/14 Review of Systems - Review of Systems Constitutional: Other - Recent hospital admission in which he was discharged with a diagnosis of NSTEMI, FABIOLA, CHF, Recent illness - Recently treated for a leg infection. denies: Fever EENT: No symptoms reported Cardiovascular: Orthopnea, Dyspnea. denies: Chest pain Respiratory: Cough, Short of breath. denies: Wheezing Gastrointestinal: No symptoms reported. denies: Abdominal pain, Vomiting Genitourinary: No symptoms reported Male Genitourinary: No symptoms reported Musculoskeletal: Leg swelling Skin: No symptoms reported Hematologic/Lymphatic: No symptoms reported Neurological/Psychological: No symptoms reported Physical Exam - Vital signs Vitals: Temp 98.1 F 03/31/20 07:12 - General General appearance: Appears well, Alert In distress: None - HEENT Head: Normocephalic Eyes: Normal Conjunctiva: Normal Nasal: Normal Mouth/Lips: Normal Mucous membranes: Normal Neck: Normal, Supple. No: Lymphadenopathy - Respiratory Respiratory status: No respiratory distress Chest status: Nontender Breath sounds: Rales - bilat lower lobes Chest palpation: Normal - Cardiovascular Rhythm: Regular Heart sounds: S1 appreciated, S2 appreciated - Abdominal Inspection: Normal Distension: No distension Tenderness: Nontender - Rectal Tenderness: No Stool: Heme positive, See lab result. No: Black, Bloody Hemorrhoids: None - Back Back: Normal, Nontender. No: CVA tenderness - Extremities General upper extremity: Normal inspection, Normal strength General lower extremity: Edema - 3+ edema to right lower extremity, left BKA. No: Tender - Neurological Neuro grossly intact: Yes Cognition: Normal [place] Coma Scale Eye Opening: Spontaneous Sadie Coma Scale Verbal: Oriented [place] Coma Scale Motor: Obeys Commands Sadie Coma Scale Total: 15 - Psychological Associated symptoms: Normal affect, Normal mood - Skin Skin Temperature: Warm Skin Moisture: Dry Skin Color: Normal Course - Re-evaluation Re-evalutation: 03/31/20 11:02 Patient denies any chest pain, abdominal pain, nausea or vomiting. Patient denies any blood or black-colored stools. Patient without any melena. On digital rectal exam no tuan blood noted. Guaiac faintly positive. Patient does have elevated BNP of over 11,000 with an indeterminate troponin. EKG reviewed without any acute ischemic changes. Patient does have a hemoglobin of 7.6 with no previous history of anemia. Consulted with Dr. Louie who is patient's primary doctor. He does agree to accept patient as an IMCU admission at this time. He does recommend giving Lasix, which has previously been ordered. We are still trying to obtain records from patient's previous hospital admission at this time. - Vital Signs Vital signs: Temp Pulse Resp BP Pulse Ox 97.6 F 70 17 131/81 H 94 03/31/20 15:45 03/31/20 19:00 03/31/20 15:45 03/31/20 15:45 03/31/20 15:45 - Laboratory Result Diagrams: 03/31/20 12:42 03/31/20 07:35 Laboratory results interpreted by me: 03/31/20 03/31/20 03/31/20 07:35 07:35 07:35 WBC 12.1 H RBC 2.83 L Hgb 7.6 L Hct 23.7 L RDW 14.4 H Lymph % (Auto) 8.4 L Absolute Neuts (auto) 10.2 H Seg Neutrophils % 84.0 H PT APTT D-Dimer 2.16 H Potassium 3.1 L BUN 30 H Creatinine 2.39 H Est GFR ( Amer) 35 L Est GFR (MDRD) Non-Af 29 L Glucose 177 H NT-Pro-B Natriuret Pep Albumin 2.8 L 03/31/20 03/31/20 07:35 07:35 WBC RBC Hgb Hct RDW Lymph % (Auto) Absolute Neuts (auto) Seg Neutrophils % PT 16.0 H APTT 42.1 H D-Dimer Potassium BUN Creatinine Est GFR ( Amer) Est GFR (MDRD) Non-Af Glucose NT-Pro-B Natriuret Pep 60886 H Albumin 03/31/20 11:04 Labs- All tests 24 hr 03/31/20 03/31/20 03/31/20 07:35 07:35 07:35 WBC 12.1 H RBC 2.83 L Hgb 7.6 L Hct 23.7 L MCV 84 MCH 27.0 MCHC 32.2 RDW 14.4 H Plt Count 392 Lymph % (Auto) 8.4 L [place] % (Auto) 5.6 Eos % (Auto) 1.6 Baso % (Auto) 0.4 Absolute Neuts (auto) 10.2 H Absolute Lymphs (auto) 1.0 Absolute Monos (auto) 0.7 Absolute Eos (auto) 0.2 Absolute Basos (auto) 0.0 Seg Neutrophils % 84.0 H PT INR APTT D-Dimer 2.16 H Sodium 138.8 Potassium 3.1 L Chloride 103 Carbon Dioxide 30 Anion Gap 6 BUN 30 H Creatinine 2.39 H Est GFR ( Amer) 35 L Est GFR (MDRD) Non-Af 29 L Glucose 177 H Lactic Acid Calcium 8.4 Magnesium Total Bilirubin 0.3 Direct Bilirubin 0.0 Neonat Total Bilirubin Not Reportable Neonat Direct Bilirubin Not Reportable Neonat Indirect Bili Not Reportable AST 24 ALT 19 Alkaline Phosphatase 90 Troponin I NT-Pro-B Natriuret Pep Total Protein 6.4 Albumin 2.8 L Blood Type Antibody Screen 03/31/20 03/31/20 03/31/20 07:35 07:35 07:35 WBC RBC Hgb Hct MCV MCH MCHC RDW Plt Count Lymph % (Auto) [place] % (Auto) Eos % (Auto) Baso % (Auto) Absolute Neuts (auto) Absolute Lymphs (auto) Absolute Monos (auto) Absolute Eos (auto) Absolute Basos (auto) Seg Neutrophils % PT INR APTT D-Dimer Sodium Potassium Chloride Carbon Dioxide Anion Gap BUN Creatinine Est GFR ( Amer) Est GFR (MDRD) Non-Af Glucose Lactic Acid 1.5 Calcium Magnesium 1.8 Total Bilirubin Direct Bilirubin Neonat Total Bilirubin Neonat Direct Bilirubin Neonat Indirect Bili AST ALT Alkaline Phosphatase Troponin I 0.058 NT-Pro-B Natriuret Pep 11429 H Total Protein Albumin Blood Type Antibody Screen 03/31/20 03/31/20 07:35 08:00 WBC RBC Hgb Hct MCV MCH MCHC RDW Plt Count Lymph % (Auto) [place] % (Auto) Eos % (Auto) Baso % (Auto) Absolute Neuts (auto) Absolute Lymphs (auto) Absolute Monos (auto) Absolute Eos (auto) Absolute Basos (auto) Seg Neutrophils % PT 16.0 H INR 1.27 APTT 42.1 H D-Dimer Sodium Potassium Chloride Carbon Dioxide Anion Gap BUN Creatinine Est GFR ( Amer) Est GFR (MDRD) Non-Af Glucose Lactic Acid Calcium Magnesium Total Bilirubin Direct Bilirubin Neonat Total Bilirubin Neonat Direct Bilirubin Neonat Indirect Bili AST ALT Alkaline Phosphatase Troponin I NT-Pro-B Natriuret Pep Total Protein Albumin Blood Type B POSITIVE Antibody Screen NEGATIVE - Diagnostic Test Radiology reviewed: Image reviewed, Reports reviewed - EKG Interpretation by Me EKG shows normal: Sinus rhythm When compared to previous EKG there are: Changes noted Additional EKG results interpreted by me: 03/31/20 11:08 No acute ischemic changes noted, no ST elevation, QTc 460 Discharge - Discharge Clinical Impression: Acute kidney injury, Elevated troponin, Peripheral edema Anemia Qualifiers: Anemia type: unspecified type Qualified Code(s): D64.9 - Anemia, unspecified CHF (congestive heart failure) Qualifiers: Heart failure type: unspecified Heart failure chronicity: acute Qualified Code(s): I50.9 - Heart failure, unspecified Condition: Fair Disposition: ADMITTED INPATIENT Admitting Provider: Liban Unit Admitted: [facility]
[2020-03-31 09:51] LABS: INTERNATIONAL RATION (INR) 1.27
[2020-03-31 09:52] LABS: PARTIAL THROMBOPLASTIN TIME 42.1 SEC (23.5-35.8)
[2020-03-31] MEDS ORDERED: FUROSEMIDE INJ/PF 40 MG/4 ML SDV IV ONE (10:13)
[2020-03-31 10:16] LABS: TROPONIN I 0.058 ng/mL
--- NOTE | 2020-03-31 10:16 | RADIOLOGY REPORT (SQ) ---
EXAM DESCRIPTION: CHEST SINGLE VIEW IMAGES COMPLETED DATE/TIME: 03/31/2020 10:04 am REASON FOR STUDY: sob COMPARISON: AP view of the chest from 10/21/2016. EXAM PARAMETERS: NUMBER OF VIEWS: One view. TECHNIQUE: An AP view of the chest was obtained. RADIATION DOSE: NA LIMITATIONS: None. FINDINGS: LUNGS AND PLEURA: Dense bibasilar opacities that obscure the contours of the hemidiaphragm s and blunt the costophrenic sulci. The horizontal fissure is thickened. The interstitium is promin ent. MEDIASTINUM AND HILAR STRUCTURES: No mediastinal or hilar contour abnormality. HEART AND VASCULAR STRUCTURES: The cardiac silhouette is partially obscured. The pulmonary vasculatu re is indistinct. BONES: No acute findings. HARDWARE: None in the chest. OTHER: No other finding. IMPRESSION: Indistinctness of the interstitium and dense bibasilar opacities that could represent a combination of pleural fluid and atelectasis. Clinical correlation to exclude CHF/volume overload is recommended. TECHNICAL DOCUMENTATION: JOB ID: [id number] 2010 [employer]- All Rights Reserved Reading location - IP/workstation name: [email or web address]
--- NOTE | 2020-03-31 12:24 | RADIOLOGY REPORT (SQ) ---
EXAM DESCRIPTION: VENOUS UNILATERAL LOWER IMAGES COMPLETED DATE/TIME: 03/31/2020 12:03 pm REASON FOR STUDY: RLE swelling COMPARISON: None. TECHNIQUE: Dynamic and static brito scale and color images acquired of the right leg venous system. S elected spectral images acquired with additional compression and augmentation maneuvers. The contrala teral common femoral vein and saphenofemoral junction were also imaged. Images stored on PACS. LIMITATIONS: None. FINDINGS: COMMON FEMORAL: Normal phasicity, compression and augmentation. No visualized echogenic ma terial on brito scale. No defects on color images. FEMORAL: Normal compression and augmentation. No visualized echogenic material on brito scale. No defe cts on color images. POPLITEAL: Normal compression, augmentation. No visualized echogenic material on brito scale. No defec ts on color images. CALF VESSELS: Normal compression, augmentation. No visualized echogenic material on brito scale. No de fects on color images. GSV and SSV: Normal compression, augmentation. No visualized echogenic material on brito scale. No def ects on color images. ANY DEEP VENOUS INSUFFICIENCY: Not evaluated. ANY EVIDENCE OF POPLITEAL CYST: No. OTHER: No other significant finding. CONTRALATERAL COMMON FEMORAL VEIN AND SAPHENOFEMORAL JUNCTION: Normal phasicity, compression and augmentation. No visualized echogenic material on brito scale. No de fects on color images. IMPRESSION: NO EVIDENCE DVT OR SVT IN THE RIGHT LEG. TECHNICAL DOCUMENTATION: JOB ID: [id number] 2010 [employer]- All Rights Reserved Reading location - IP/workstation name: [email or web address]
--- NOTE | 2020-03-31 12:42 | EKG REPORT ---
SEVERITY:- ABNORMAL ECG - SINUS RHYTHM PROBABLE LEFT ATRIAL ABNORMALITY ABNRM R PROG, CONSIDER ASMI OR LEAD PLACEMENT BORDERLINE T ABNORMALITIES, INFERIOR LEADS : Confirmed by: Yvrose Figueroa 31-Mar-2020 12:40:45
[2020-03-31 12:52] LABS: HEMATOCRIT 28.9 % (37.9-51.0); HEMOGLOBIN 9.3 g/dL (13.5-17.0); MEAN CORPUSCULAR HEMOGLOBIN 27.2 pg (27.0-33.4); MEAN CORPUSCULAR HGB CONC 32.1 g/dL (32.0-36.0); MEAN CORPUSCULAR VOLUME 85 fl (80-97); PLATELET COUNT 461 10^3/uL (150-450); RED BLOOD COUNT 3.41 10^6/uL (4.35-5.55); RED CELL DISTRIBUTION WIDTH 14.5 % (11.5-14.0); WHITE BLOOD COUNT 13.7 10^3/uL (4.0-10.5)
[2020-03-31] MEDS ORDERED: ACETAMINOPHEN 325 MG TABLET PO ONE (13:37)
[2020-03-31 14:23] LABS: APPEARANCE,URINE CLEAR; BILIRUBIN,URINE NEGATIVE (NEGATIVE); COLOR,URINE STRAW; GLUCOSE, URINE 50 mg/dL (NEGATIVE); KETONES,URINE NEGATIVE (NEGATIVE); LEUKOCYTE ESTERASE,URINE NEGATIVE (NEGATIVE); NITRITE,URINE NEGATIVE (NEGATIVE); PROTEIN,URINE 100 mg/dL (NEGATIVE); URINE SPECIFIC GRAVITY 1.008; UROBILINOGEN,URINE NEGATIVE mg/dL (<2.0)
[2020-03-31] MEDS ORDERED: DEXTROSE 40% GEL 15 GM TUBE PO PRN ×2 (14:55)
[2020-03-31] MEDS ORDERED: GLUCAGON,HUMAN RECOMB 1 MG INJ IM PRN (14:55)
[2020-03-31] MEDS ORDERED: DEXTROSE 50%-WATER 25 GM/50 ML DISP.SYRIN IV PRN ×2 (14:55)
[2020-03-31] MEDS: INSULIN LISPRO 100 UNIT/ML 3 ML VIAL SUBCUT SCH ×2 (16:53→21:36)
[2020-03-31] MEDS: CEFTRIAXONE 1 GM/D5W RTU 1 GM/50 ML RTUPB IV SCH (17:39)
[2020-03-31] MEDS: HEPARIN SOD (PORCINE) 5,000 UNIT/ML 1 ML VIAL SUBCUT SCH ×2 (17:40→22:02)
--- NOTE | 2020-03-31 19:02 | PDOC H&P ---
History of Present Illness Admission Date/PCP: 03/31/20 12:26 [facility] Patient complains of: Difficulty with breathing History of Present Illness: DEB CUADRA is a 50 year old male patient known to my practice who presented to the ED with complain about persistent difficulty with breathing, particularly laying down at night and associated nonproductive cough. 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 He claimed that he had to make a delivery to [place] recently and upon arrival noticed nonproductive cough and leg swelling couple of weeks ago. He was evaluated at treated as case of possible pneumonia with oral antibiotic. Due to his morbidities he was prescribed diuretic at the same time. He reported some improvement in his leg swelling and coughing thereafter. He subsequently travelled to [facility] for another delivery and while he was there developed worsening cough and difficulty to lay down at night. He subsequently when to the hospital in [place] where he was treated with IV Furosemide. He was subsequently discharged home on medications that suggested congestive heart failure and NSTEMI as per his discharge papers. Patient claimed that he was not informed about these diagnosis pr given any prescription for the listed medications including Eliquis, Carvedilol, Lasix, Lisinopril, and Aspirin. He did not fill any prescription nor take any of the listed medication since 03/28/2020. His initial evaluation in the ED was significant for 3+ edema involving the lower extremities with left BKA, severely elevated NT-Pro BNP, marcia kocytosis with left shift, renal injury indices with anemia and hypokalemia, lower extremities venous doppler that suggested no SVT or DVT, and chest X ray with bilateral basal opacity suggestive of pleural effusion, possible atelectasis and abnormal 12 lead ECG. He was advised hospitalization for further evaluation and management. He admitted to completion of lower extremities venous evaluation in [place] but no echocardiogram performed. Past Medical History Cardiac Medical History: Denies: Coronary Artery Disease, Myocardial Infarction, Hypertension Pulmonary Medical History: Denies: Asthma, Bronchitis, Chronic Obstructive Pulmonary Disease (COPD), Pneumonia Neurological Medical History: Denies: Seizures Endocrine Medical History: Reports: Diabetes Mellitus Type 1, Diabetes Mellitus Type 2 GI Medical History: Reports: Gastroesophageal Reflux Disease Denies: Hiatal Hernia Musculoskeltal Medical History: Denies: Arthritis Hematology: Denies: Anemia Past Surgical History Past Surgical History: Reports: Other - left BKA Social History Smoking Status: Unknown if Ever Smoked Frequency of Alcohol Use: Rare Hx Recreational Drug Use: No Drugs: None Hx Prescription Drug Abuse: No - Advance Directive Resuscitation Status: Full Code Family History Family History: Reviewed & Not Pertinent, DM Parental Family History Reviewed: Yes Children Family History Reviewed: Yes Sibling(s) Family History Reviewed.: Yes Medication/Allergy Allergies/Adverse Reactions: promethazine HCl [From Phenergan] Adverse Reaction (Verified 10/29/18 09:02) Review of Systems Constitutional: ABSENT: chills, fever(s), headache(s), weight gain, weight loss Eyes: ABSENT: visual disturbances Ears: ABSENT: hearing changes Cardiovascular: PRESENT: orthropnea. ABSENT: chest pain, dyspnea on exertion, edema, palpitations Respiratory: PRESENT: cough. ABSENT: hemoptysis Gastrointestinal: ABSENT: abdominal pain, constipation, diarrhea, hematemesis, hematochezia, nausea, vomiting Genitourinary: ABSENT: dysuria, hematuria Musculoskeletal: ABSENT: joint swelling Integumentary: ABSENT: rash, wounds Neurological: ABSENT: abnormal gait, abnormal speech, confusion, dizziness, focal weakness, syncope Psychiatric: ABSENT: anxiety, depression, homidical ideation, suicidal ideation Endocrine: ABSENT: cold intolerance, heat intolerance, menstrual abnormalities, polydipsia, polyuria Hematologic/Lymphatic: ABSENT: easy bleeding, easy bruising, lymphadenopathy Physical Exam Vital Signs: Temp Pulse Resp BP Pulse Ox 98.1 F 73 28 H 115/103 H 100 03/31/20 07:17 03/31/20 07:17 03/31/20 13:01 03/31/20 13:00 03/31/20 13:01 Intake & Output 03/30/20 03/31/20 04/01/20 06:59 06:59 06:59 Weight 81.647 kg General appearance: PRESENT: no acute distress, well-developed, well-nourished Head exam: PRESENT: atraumatic, normocephalic Eye exam: PRESENT: conjunctiva pink, EOMI, PERRLA. ABSENT: scleral icterus Ear exam: PRESENT: normal external ear exam Mouth exam: PRESENT: moist, tongue midline Neck exam: PRESENT: full ROM. ABSENT: carotid bruit, JVD, lymphadenopathy, thyromegaly Respiratory exam: PRESENT: crackles - scattered, decreased breath sounds - at lung bases, rales Cardiovascular exam: PRESENT: RRR, +S1, +S2. ABSENT: diastolic murmur, rubs, systolic murmur Vascular exam: PRESENT: pallor GI/Abdominal exam: PRESENT: normal bowel sounds, soft. ABSENT: distended, guarding, mass, organolmegaly, rebound, tenderness Rectal exam: PRESENT: deferred Extremities exam: PRESENT: left BKA, pedal edema - bilateral to above thigh level Musculoskeletal exam: PRESENT: ambulatory - witrh left BKA prosthesis. ABSENT: tenderness Neurological exam: PRESENT: alert, awake, oriented to person, oriented to place, oriented to time, oriented to situation, CN II-XII grossly intact. ABSENT: motor sensory deficit Psychiatric exam: PRESENT: appropriate affect, normal mood. ABSENT: homicidal ideation, suicidal ideation Skin exam: PRESENT: dry, intact, warm. ABSENT: cyanosis, rash Results Laboratory Results: 03/31/20 12:42 03/31/20 07:35 03/31/20 03/31/20 03/31/20 07:35 07:35 07:35 WBC 12.1 H RBC 2.83 L Hgb 7.6 L Hct 23.7 L MCV 84 MCH 27.0 MCHC 32.2 RDW 14.4 H Plt Count 392 Seg Neutrophils % 84.0 H Sodium 138.8 Potassium 3.1 L Chloride 103 Carbon Dioxide 30 Anion Gap 6 BUN 30 H Creatinine 2.39 H Est GFR ( Amer) 35 L Glucose 177 H Lactic Acid 1.5 Calcium 8.4 Magnesium Total Bilirubin 0.3 AST 24 Alkaline Phosphatase 90 Total Protein 6.4 Albumin 2.8 L Urine Color Urine Appearance Urine pH Ur Specific [place] Urine Protein Urine Glucose (UA) Urine Ketones Urine Blood Urine Nitrite Ur Leukocyte Esterase Urine WBC (Auto) Urine RBC (Auto) Blood Type Antibody Screen 03/31/20 03/31/20 03/31/20 07:35 08:00 12:42 WBC 13.7 H RBC 3.41 L Hgb 9.3 L Hct 28.9 L MCV 85 MCH 27.2 MCHC 32.1 RDW 14.5 H Plt Count 461 H Seg Neutrophils % Sodium Potassium Chloride Carbon Dioxide Anion Gap BUN Creatinine Est GFR ( Amer) Glucose Lactic Acid Calcium Magnesium 1.8 Total Bilirubin AST Alkaline Phosphatase Total Protein Albumin Urine Color Urine Appearance Urine pH Ur Specific [place] Urine Protein Urine Glucose (UA) Urine Ketones Urine Blood Urine Nitrite Ur Leukocyte Esterase Urine WBC (Auto) Urine RBC (Auto) Blood Type B POSITIVE Antibody Screen NEGATIVE 03/31/20 13:55 WBC RBC Hgb Hct MCV MCH MCHC RDW Plt Count Seg Neutrophils % Sodium Potassium Chloride Carbon Dioxide Anion Gap BUN Creatinine Est GFR ( Amer) Glucose Lactic Acid Calcium Magnesium Total Bilirubin AST Alkaline Phosphatase Total Protein Albumin Urine Color STRAW Urine Appearance CLEAR Urine pH 8.0 Ur Specific [place] 1.008 Urine Protein 100 H Urine Glucose (UA) 50 H Urine Ketones NEGATIVE Urine Blood SMALL H Urine Nitrite NEGATIVE Ur Leukocyte Esterase NEGATIVE Urine WBC (Auto) 1 Urine RBC (Auto) 2 Blood Type Antibody Screen 03/31/20 03/31/20 07:35 12:42 Troponin I 0.058 0.061 NT-Pro-B Natriuret Pep 85686 H Impressions: Venous Doppler Study 03/31/20 09:24 IMPRESSION: NO EVIDENCE DVT OR SVT IN THE RIGHT LEG. Chest X-Ray 03/31/20 09:25 IMPRESSION: Indistinctness of the interstitium and dense bibasilar opacities that could represent a combination of pleural fluid and atelectasis. Clinical correlation to exclude CHF/volume overload is recommended. Assessment & Plan - Diagnosis (1) CHF (congestive heart failure) Qualifiers: Heart failure type: unspecified Heart failure chronicity: acute Qualified Code(s): I50.9 - Heart failure, unspecified Is this a current diagnosis for this admission?: Yes Plan: See admitting attending physician order for details about care plan. (2) Non-ST elevation myocardial infarction (NSTEMI) of indeterminate age Is this a current diagnosis for this admission?: Yes Plan: See admitting attending physician order for details about care plan. (3) Acute kidney injury Is this a current diagnosis for this admission?: Yes Plan: See admitting attending physician order for details about care plan. (4) Probable sepsis Is this a current diagnosis for this admission?: Yes Plan: See admitting attending physician order for details about care plan. (5) HTN (hypertension) Qualifiers: Hypertension type: essential hypertension Qualified Code(s): I10 - Essential (primary) hypertension Is this a current diagnosis for this admission?: Yes Plan: See admitting attending physician order for details about care plan. (6) Diabetes mellitus type 2 in nonobese Is this a current diagnosis for this admission?: Yes Plan: See admitting attending physician order for details about care plan. (7) Anemia Qualifiers: Anemia type: unspecified type Qualified Code(s): D64.9 - Anemia, unspecified Is this a current diagnosis for this admission?: Yes Plan: See admitting attending physician order for details about care plan. - Time Time Spent: 50 to 70 Minutes Medications reviewed and adjusted accordingly: Yes Anticipated discharge: Home Within: Other - Inpatient Certification Based on my medical assessment, after consideration of the patient's comorbidities, presenting symptoms, or acuity I expect that the services needed warrant INPATIENT care.: Yes I certify that my determination is in accordance with my understanding of Medicare's requirements for reasonable and necessary INPATIENT services [42 CFR 412.3e].: Yes Medical Necessity: Significant Comorbidiites Make Outpatient Treatment Too Risky, Need Close Monitoring Due to Risk of Patient Decompensation, Need for IV Antibiotics, Risk of Complication if Not Cared For in Hospital, Risk of Diagno sis Which Will Require Inpatient Eval/Care/Monitoring 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
--- NOTE | 2020-03-31 19:54 | XCELERA REPORT ---
[address] [address] Transthoracic Echocardiogram Report Name: DEB CUADRA Age: 50 yrs Gender: Male : 1970 Patient Status: Inpatient Patient Location: [address] [place] [address] Study Date: 03/31/2020 05:40 PM Height: 72 in Weight: 180 lb BSA: 2.0 m2 Procedure: A two-dimensional transthoracic echocardiogram with color flow and Doppler was performed. The study was technically limited with all images being suboptimal in quality. Images were not obtained from all of the standard acoustic windows due to the limited scope of the study. Reason For Study: CHF,/ NSTEMI History: CHF,/ NSTEMI. Ordering Physician: SALOMON HUNT Performed By: Sania De La O Interpretation Summary The left ventricle is normal in size. There is normal left ventricular wall thickness. LV EF is 55% Left ventricular systolic function is low normal. Doppler measurements suggest impaired left ventricular relaxation, which is associated with grade I/IV or mild diastolic dysfunction No True apical 2 chamber views obtained.Hence cannot comment on the apical anterior , the basal anterior, the basal inferior and apical inferior ann.The basal sptum and lateral ann are hypokinetic.The mid anterior , the mid inferior and the rest of the LV ann contract normally. .Normal LVEF is low normal and is greater than 55% in the limited views. There is no thrombus. Probably no ASD,VSD , or PFO The right ventricle is grossly normal size. The right ventricle is not well visualized secondary to technical limitations The right atrium is normal. The left atrium is mildly dilated. There is no evidence of mitral valve prolapse. There is no vegetation seen on the mitral valve. There is a mild amount of mitral regurgitation There is no aortic valvular vegetation. There is no aortic valve stenosis There is no LVOT obstruction. No aortic regurgitation is present. There is no tricuspid stenosis. There is a mild amount of tricuspid regurgitation There is moderate pulmonary hypertension by echo RVSP is 54 to 59 mm of Hg ,with RA mean of 10 to 15. There is no pulmonic valvular stenosis. There is a mild amount of pulmonic regurgitation The inferior vena cava appeared normal and decreased < 50% with respiration (RAP 10-15 mmHg) There is no pericardial effusion. Moderate size right pleural effusion. MMode/2D Measurements & Calculations RVDd: 2.8 cm LVIDd: 5.6 cm FS: 18.0 % Ao root diam: 3.0 cm IVSd: 1.5 cm LVIDs: 4.6 cm EDV(Teich): 155.9 ml Ao root area: 6.9 cm2 LVPWd: 0.92 cm ESV(Teich): 98.5 ml LA dimension: 4.3 cm EF(Teich): 36.8 % Doppler Measurements & Calculations MV E max rocio: MV P1/2t max rocio: Ao V2 max: LV V1 max P.4 cm/sec 165.6 cm/sec 154.7 cm/sec 3.5 mmHg MV A max rocio: MV P1/2t: 67.4 msec Ao max PG: LV V1 max: 67.5 cm/sec MVA(P1/2t): 3.3 cm2 9.6 mmHg 93.1 cm/sec MV E/A: 2.3 MV dec slope: 719.6 cm/sec2 MV dec time: 0.12 sec PA V2 max: PI end-d rocio: TR max rocio: MV P1/2t-pr_phl: 62.5 cm/sec 164.2 cm/sec 329.7 cm/sec 67.4 msec PA max P.6 mmHg TR max P.5 mmHg Left Ventricle The left ventricle is normal in size. There is normal left ventricular wall thickness. LV EF is 55%. Left ventricular systolic function is low normal. Doppler measurements suggest impaired left ventricular relaxation, which is associated with grade I/IV or mild diastolic dysfunction. No True apical 2 chamber views obtained.Hence cannot comment on the apical anterior , the basal anterior, the basal inferior and apical inferior ann.The basal sptum and lateral ann are hypokinetic.The mid anterior , the mid inferior and the rest of the LV ann contract normally. .Normal LVEF is low normal and is greater than 55% in the limited views. There is no thrombus. Probably no ASD,VSD , or PFO. Right Ventricle The right ventricle is grossly normal size. The right ventricle is not well visualized secondary to technical limitations. Atria The right atrium is normal. The left atrium is mildly dilated. Mitral Valve There is no evidence of mitral valve prolapse. There is no vegetation seen on the mitral valve. There is no mitral valve stenosis. There is a mild amount of mitral regurgitation. Aortic Valve There is no aortic valvular vegetation. There is no aortic valve stenosis. There is no LVOT obstruction. No aortic regurgitation is present. Tricuspid Valve There is no tricuspid stenosis. There is a mild amount of tricuspid regurgitation. There is moderate pulmonary hypertension by echo. RVSP is 54 to 59 mm of Hg ,with RA mean of 10 to 15. Pulmonic Valve There is no pulmonic valvular stenosis. There is a mild amount of pulmonic regurgitation. Great Vessels The aortic root is normal size. The inferior vena cava appeared normal and decreased < 50% with respiration (RAP 10-15 mmHg). Effusions There is no pericardial effusion. Moderate size right pleural effusion. : SALOMON HUNT Lakshmi
[2020-03-31] MEDS ORDERED: CALCIUM CARBONATE 500 MG TAB.CHEW PO PRN (20:50)
[2020-03-31] MEDS: ISOSORBIDE DINITRATE 10 MG TABLET PO SCH (21:48)
[2020-03-31] MEDS: METOPROLOL TARTRATE 25 MG TABLET PO SCH (21:48)
[2020-03-31] MEDS: HYDRALAZINE HCL 10 MG TABLET PO SCH (21:49)
[2020-04-01] MEDS: PANTOPRAZOLE SODIUM 40 MG TABLET.DR PO SCH (05:32)
[2020-04-01] MEDS: ISOSORBIDE DINITRATE 10 MG TABLET PO SCH ×3 (05:32→21:29)
[2020-04-01] MEDS: HYDRALAZINE HCL 10 MG TABLET PO SCH ×3 (05:32→21:29)
[2020-04-01 06:24] LABS: ABSOLUTE BASOPHILS # (AUTO) 0.1 10^3/uL (0.0-0.2); ABSOLUTE EOSINOPHILS # (AUTO) 0.3 10^3/uL (0.0-0.6); ABSOLUTE LYMPHOCYTES (AUTO) 1.4 10^3/uL (0.5-4.7); ABSOLUTE MONOCYTES (AUTO) 0.7 10^3/uL (0.1-1.4); ABSOLUTE NEUT (AUTO) 8.5 10^3/uL (1.7-8.2); BASOPHILS % (AUTO) 0.7 % (0-2); EOSINOPHILS % (AUTO) 2.5 % (0-6); HEMATOCRIT 23.6 % (37.9-51.0); LYMPHOCYTES % (AUTO) 12.8 % (13-45); MEAN CORPUSCULAR HEMOGLOBIN 27.7 pg (27.0-33.4); MEAN CORPUSCULAR HGB CONC 33.4 g/dL (32.0-36.0); MEAN CORPUSCULAR VOLUME 83 fl (80-97); MONOCYTES % (AUTO) 6.1 % (3-13); PLATELET COUNT 374 10^3/uL (150-450); RED BLOOD COUNT 2.84 10^6/uL (4.35-5.55); RED CELL DISTRIBUTION WIDTH 14.5 % (11.5-14.0); SEGMENTED NEUTROPHILS % (AUTO) 77.9 % (42-78); TOTAL CELLS COUNTED % (AUTO) 100 %; WHITE BLOOD COUNT 10.9 10^3/uL (4.0-10.5)
[2020-04-01] MEDS: HEPARIN SOD (PORCINE) 5,000 UNIT/ML 1 ML VIAL SUBCUT SCH ×3 (06:43→22:51)
[2020-04-01 06:50] LABS: ALBUMIN 2.7 g/dL (3.5-5.0); ALKALINE PHOSPHATASE 90 U/L (38-126); ANION GAP 7 (5-19); ASPARTATE AMINO TRANSFERASE 24 U/L (17-59); BILIRUBIN,TOTAL 0.3 mg/dL (0.2-1.3); BLOOD UREA NITROGEN 27 mg/dL (7-20); CALCIUM 8.8 mg/dL (8.4-10.2); CARBON DIOXIDE 28 mmol/L (22-30); CHLORIDE 104 mmol/L (98-107); CHOLESTEROL 137.02 mg/dL (0-200); GLUCOSE 137 mg/dL (75-110); PHOSPHORUS 3.8 mg/dL (2.5-4.5); POTASSIUM 3.8 mmol/L (3.6-5.0); TOTAL PROTEIN 6.3 g/dL (6.3-8.2); TRIGLYCERIDES 84 mg/dL (<150)
[2020-04-01 06:51] LABS: HEMOGLOBIN 7.9 g/dL (13.5-17.0)
[2020-04-01 07:00] LABS: DIRECT LDL 72 mg/dL (<100)
[2020-04-01] MEDS: INSULIN LISPRO 100 UNIT/ML 3 ML VIAL SUBCUT SCH ×4 (08:08→21:29)
[2020-04-01] MEDS: METOPROLOL TARTRATE 25 MG TABLET PO SCH ×2 (10:06→21:29)
[2020-04-01] MEDS: FUROSEMIDE INJ/PF 20 MG/2 ML SDV IV SCH (10:06)
[2020-04-01] MEDS: CEFTRIAXONE 1 GM/D5W RTU 1 GM/50 ML RTUPB IV SCH (10:10)
[2020-04-01] MEDS ORDERED: FUROSEMIDE INJ/PF 20 MG/2 ML SDV IV ONE (16:45)
--- NOTE | 2020-04-01 16:56 | PDOC PROGRESS REPORT ---
Subjective Progress Note for:: 04/01/20 Subjective:: He denied any ongoing chest pain. Breathimng is getting better. Leg swelling about same. No fever or chills. No nausea or vomiting. Reason For Visit: ACUTE CHF, FABIOLA, DMTYPE 2, GERD Physical Exam Vital Signs: Temp Pulse Resp BP Pulse Ox 98.1 F 73 18 137/70 H 98 04/01/20 07:42 04/01/20 14:00 04/01/20 07:42 04/01/20 07:42 04/01/20 07:42 Intake & Output 03/31/20 04/01/20 04/02/20 06:59 06:59 06:59 Intake Total 512 50 Output Total 725 Balance -213 50 Weight 82.7 kg General appearance: PRESENT: no acute distress, well-developed, well-nourished Head exam: PRESENT: atraumatic, normocephalic Eye exam: PRESENT: conjunctiva pink. ABSENT: scleral icterus Mouth exam: PRESENT: moist Respiratory exam: PRESENT: clear to auscultation crystal, decreased breath sounds Cardiovascular exam: PRESENT: RRR, +S1, +S2. ABSENT: diastolic murmur, rubs, systolic murmur Vascular exam: PRESENT: pallor GI/Abdominal exam: PRESENT: normal bowel sounds, soft. ABSENT: distended, guarding, mass, organolmegaly, rebound, tenderness Extremities exam: PRESENT: left BKA, pedal edema - to thight level. Neurological exam: PRESENT: alert, awake, oriented to person, oriented to place, oriented to time, oriented to situation, CN II-XII grossly intact. ABSENT: motor sensory deficit Psychiatric exam: PRESENT: appropriate affect, normal mood. ABSENT: homicidal ideation, suicidal ideation Skin exam: PRESENT: dry, warm Results Laboratory Results: 04/01/20 06:01 04/01/20 06:01 04/01/20 04/01/20 06:01 06:01 WBC 10.9 H RBC 2.84 L Hgb 7.9 L Hct 23.6 L MCV 83 MCH 27.7 MCHC 33.4 RDW 14.5 H Plt Count 374 Seg Neutrophils % 77.9 Sodium 138.6 Potassium 3.8 Chloride 104 Carbon Dioxide 28 Anion Gap 7 BUN 27 H Creatinine 2.23 H Est GFR ( Amer) 38 L Glucose 137 H Calcium 8.8 Phosphorus 3.8 Magnesium 1.9 Total Bilirubin 0.3 AST 24 Alkaline Phosphatase 90 Total Protein 6.3 Albumin 2.7 L Triglycerides 84 Cholesterol 137.02 LDL Cholesterol Direct 72 VLDL Cholesterol 17.0 HDL Cholesterol 42 03/31/20 03/31/20 07:35 12:42 Troponin I 0.058 0.061 NT-Pro-B Natriuret Pep [id number] H Impressions: Venous Doppler Study 03/31/20 09:24 IMPRESSION: NO EVIDENCE DVT OR SVT IN THE RIGHT LEG. Chest X-Ray 03/31/20 09:25 IMPRESSION: Indistinctness of the interstitium and dense bibasilar opacities that could represent a combination of pleural fluid and atelectasis. Clinical correlation to exclude CHF/volume overload is recommended. Assessment & Plan - Diagnosis (1) Heart failure with preserved ejection fraction Qualifiers: Heart failure chronicity: acute Qualified Code(s): I50.31 - Acute diastolic (congestive) heart failure Is this a current diagnosis for this admission?: Yes Plan: Continue current medication management. Obtain medical record form his recent hospitalization in [place] for review. (2) Non-ST elevation myocardial infarction (NSTEMI) of indeterminate age Is this a current diagnosis for this admission?: Yes (3) Acute kidney injury Is this a current diagnosis for this admission?: Yes (4) Probable sepsis Is this a current diagnosis for this admission?: Yes (5) HTN (hypertension) Qualifiers: Hypertension type: essential hypertension Qualified Code(s): I10 - Essential (primary) hypertension Is this a current diagnosis for this admission?: Yes (6) Pulmonary HTN Is this a current diagnosis for this admission?: Yes (7) Diabetes mellitus type 2 in nonobese Is this a current diagnosis for this admission?: Yes (8) Anemia Qualifiers: Anemia type: unspecified type Qualified Code(s): D64.9 - Anemia, unspecified Is this a current diagnosis for this admission?: Yes - Time Time Spent with patient: 25-34 minutes Level of Care: IMCU Medications reviewed and adjusted accordingly: Yes Anticipated discharge: Home Within: Other - Inpatient Certification Based on my medical assessment, after consideration of the patient's comorbidities, presenting symptoms, or acuity I expect that the services needed warrant INPATIENT care.: Yes I certify that my determination is in accordance with my understanding of Medicare's requirements for reasonable and necessary INPATIENT services [42 CFR 412.3e].: Yes Medical Necessity: Significant Comorbidiites Make Outpatient Treatment Too Risky, Need Close Monitoring Due to Risk of Patient Decompensation, Need For Continuous Telemetry Monitoring, Risk of Complication if Not Cared For in Hospital, Risk of Diagnosis Which Will Require Inpatient Eval/Care/Monitoring Post 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 Administer Furosemide 20 mg IV x 1 dose now.
[2020-04-02] MEDS: PANTOPRAZOLE SODIUM 40 MG TABLET.DR PO SCH (06:30)
[2020-04-02] MEDS: ISOSORBIDE DINITRATE 10 MG TABLET PO SCH ×3 (06:30→22:41)
[2020-04-02] MEDS: HYDRALAZINE HCL 10 MG TABLET PO SCH ×3 (06:30→22:40)
[2020-04-02] MEDS: HEPARIN SOD (PORCINE) 5,000 UNIT/ML 1 ML VIAL SUBCUT SCH ×3 (06:31→22:39)
[2020-04-02 06:50] LABS: ABSOLUTE BASOPHILS # (AUTO) 0.1 10^3/uL (0.0-0.2); ABSOLUTE EOSINOPHILS # (AUTO) 0.2 10^3/uL (0.0-0.6); ABSOLUTE LYMPHOCYTES (AUTO) 1.4 10^3/uL (0.5-4.7); ABSOLUTE MONOCYTES (AUTO) 0.6 10^3/uL (0.1-1.4); BASOPHILS % (AUTO) 0.9 % (0-2); EOSINOPHILS % (AUTO) 1.8 % (0-6); HEMATOCRIT 23.5 % (37.9-51.0); LYMPHOCYTES % (AUTO) 13.7 % (13-45); MEAN CORPUSCULAR HEMOGLOBIN 27.1 pg (27.0-33.4); MEAN CORPUSCULAR HGB CONC 32.5 g/dL (32.0-36.0); MEAN CORPUSCULAR VOLUME 83 fl (80-97); MONOCYTES % (AUTO) 5.6 % (3-13); PLATELET COUNT 385 10^3/uL (150-450); RED BLOOD COUNT 2.83 10^6/uL (4.35-5.55); RED CELL DISTRIBUTION WIDTH 14.3 % (11.5-14.0); TOTAL CELLS COUNTED % (AUTO) 100 %; WHITE BLOOD COUNT 10.3 10^3/uL (4.0-10.5)
[2020-04-02 07:00] LABS: HEMOGLOBIN 7.6 g/dL (13.5-17.0)
[2020-04-02 07:24] LABS: ANION GAP 7 (5-19); BLOOD UREA NITROGEN 27 mg/dL (7-20); CALCIUM 8.4 mg/dL (8.4-10.2); CARBON DIOXIDE 25 mmol/L (22-30); CHLORIDE 105 mmol/L (98-107); GLUCOSE 202 mg/dL (75-110); POTASSIUM 3.8 mmol/L (3.6-5.0)
[2020-04-02] MEDS: INSULIN LISPRO 100 UNIT/ML 3 ML VIAL SUBCUT SCH ×4 (07:56→22:38)
[2020-04-02] MEDS: CEFTRIAXONE 1 GM/D5W RTU 1 GM/50 ML RTUPB IV SCH (09:41)
[2020-04-02] MEDS: FUROSEMIDE INJ/PF 20 MG/2 ML SDV IV SCH (09:41)
[2020-04-02] MEDS: METOPROLOL TARTRATE 25 MG TABLET PO SCH ×2 (09:41→22:40)
[2020-04-02] MEDS ORDERED: NORMAL SALINE 250 ML IV PRN ×2 (14:12)
--- NOTE | 2020-04-02 14:28 | PDOC PROGRESS REPORT ---
Subjective Progress Note for:: 04/02/20 Subjective:: No chest pain or difficulty with breathing. No nausea, vomiting or abdominal pain. No fever or chills. Reason For Visit: ACUTE CHF, FABIOLA, DMTYPE 2, GERD Physical Exam Vital Signs: Temp Pulse Resp BP Pulse Ox 98.2 F 66 17 133/73 H 96 04/02/20 11:44 04/02/20 11:44 04/02/20 11:44 04/02/20 11:44 04/02/20 11:44 Intake & Output 04/01/20 04/02/20 04/03/20 06:59 06:59 06:59 Intake Total 512 630 350 Output Total 725 1250 Balance -213 -620 350 Weight 82.7 kg 81.7 kg Physical Exam: General appearance: PRESENT: no acute distress, well-developed, well-nourished Head exam: PRESENT: atraumatic, normocephalic Eye exam: PRESENT: conjunctiva pink. ABSENT: pallor, scleral icterus Mouth exam: PRESENT: moist Respiratory exam: PRESENT: clear to auscultation crystal, decreased breath sounds Cardiovascular exam: PRESENT: RRR, +S1, +S2. ABSENT: diastolic murmur, rubs, systolic murmur GI/Abdominal exam: PRESENT: normal bowel sounds, soft. ABSENT: distended, guarding, mass, organomegaly, rebound, tenderness Extremities exam: PRESENT: left BKA, pedal edema - to thigh level. Neurological exam: PRESENT: alert, awake, oriented to person, oriented to place, oriented to time, oriented to situation, CN II-XII grossly intact. ABSENT: motor sensory deficit Psychiatric exam: PRESENT: appropriate affect, normal mood. ABSENT: homicidal ideation, suicidal ideation Skin exam: PRESENT: dry, warm Results Laboratory Results: 04/02/20 05:53 04/02/20 05:53 03/31/20 04/02/20 04/02/20 08:00 05:53 05:53 WBC 10.3 RBC 2.83 L Hgb 7.6 L Hct 23.5 L MCV 83 MCH 27.1 MCHC 32.5 RDW 14.3 H Plt Count 385 Seg Neutrophils % 78.0 Sodium 136.9 L Potassium 3.8 Chloride 105 Carbon Dioxide 25 Anion Gap 7 BUN 27 H Creatinine 2.16 H Est GFR ( Amer) 39 L Glucose 202 H Calcium 8.4 Blood Type B POSITIVE Antibody Screen NEGATIVE 03/31/20 03/31/20 07:35 12:42 Troponin I 0.058 0.061 NT-Pro-B Natriuret Pep [id number] H Impressions: Venous Doppler Study 03/31/20 09:24 IMPRESSION: NO EVIDENCE DVT OR SVT IN THE RIGHT LEG. Chest X-Ray 03/31/20 09:25 IMPRESSION: Indistinctness of the interstitium and dense bibasilar opacities that could represent a combination of pleural fluid and atelectasis. Clinical correlation to exclude CHF/volume overload is recommended. Assessment & Plan - Diagnosis (1) Heart failure with preserved ejection fraction Qualifiers: Heart failure chronicity: acute Qualified Code(s): I50.31 - Acute diastolic (congestive) heart failure Is this a current diagnosis for this admission?: Yes (2) Non-ST elevation myocardial infarction (NSTEMI) of indeterminate age Is this a current diagnosis for this admission?: Yes (3) Acute kidney injury Is this a current diagnosis for this admission?: Yes (4) Probable sepsis Is this a current diagnosis for this admission?: Yes (5) HTN (hypertension) Qualifiers: Hypertension type: essential hypertension Qualified Code(s): I10 - Essential (primary) hypertension Is this a current diagnosis for this admission?: Yes (6) Pulmonary HTN Is this a current diagnosis for this admission?: Yes (7) Diabetes mellitus type 2 in nonobese Is this a current diagnosis for this admission?: Yes (8) Anemia Qualifiers: Anemia type: unspecified type Qualified Code(s): D64.9 - Anemia, unspecified Is this a current diagnosis for this admission?: Yes - Time Time Spent with patient: 25-34 minutes Level of Care: IMCU Medications reviewed and adjusted accordingly: Yes Anticipated discharge: Home with Homehealth Within: Other - Inpatient Certification Based on my medical assessment, after consideration of the patient's comorbidities, presenting symptoms, or acuity I expect that the services needed warrant INPATIENT care.: Yes I certify that my determination is in accordance with my understanding of Medicare's requirements for reasonable and necessary INPATIENT services [42 CFR 412.3e].: Yes Medical Necessity: Significant Comorbidiites Make Outpatient Treatment Too Risky, Need Close Monitoring Due to Risk of Patient Decompensation, Need For Con tinuous Telemetry Monitoring, Risk of Complication if Not Cared For in Hospital, Risk of Diagnosis Which Will Require Inpatient Eval/Care/Monitoring Post Hospital Care: D/C Sole Stainer Documentation - Plan Summary Plan Summary: Transfuse 2 units PRBC. Obtain anemia workup and stool fecal occult blood testing. Administer IV Lasix 20 mg between unit transfusion. Continue al other current medication management.
[2020-04-02] MEDS ORDERED: FUROSEMIDE INJ/PF 20 MG/2 ML SDV IV ONE (14:45)
[2020-04-02 14:54] LABS: ABSOLUTE RETICS # 0.046 10^6/uL (0.028-0.122); RETICULOCYTE COUNT (AUTO) 1.68 % (0.66-2.85)
[2020-04-02 15:10] LABS: IRON(TIBC) 15.3 ug/dL (49-181)
[2020-04-02 16:16] LABS: FOLATE 6.78 ng/mL (>2.76)
[2020-04-03 01:55] LABS: HEMATOCRIT 32.9 % (37.9-51.0); MEAN CORPUSCULAR HEMOGLOBIN 27.9 pg (27.0-33.4); MEAN CORPUSCULAR HGB CONC 33.2 g/dL (32.0-36.0); MEAN CORPUSCULAR VOLUME 84 fl (80-97); PLATELET COUNT 432 10^3/uL (150-450); RED BLOOD COUNT 3.92 10^6/uL (4.35-5.55); RED CELL DISTRIBUTION WIDTH 14.7 % (11.5-14.0); WHITE BLOOD COUNT 11.3 10^3/uL (4.0-10.5)
[2020-04-03 01:56] LABS: HEMOGLOBIN 10.9 g/dL (13.5-17.0)
[2020-04-03] MEDS: HYDRALAZINE HCL 10 MG TABLET PO SCH (05:27)
[2020-04-03] MEDS: ISOSORBIDE DINITRATE 10 MG TABLET PO SCH ×3 (05:27→21:50)
[2020-04-03] MEDS: PANTOPRAZOLE SODIUM 40 MG TABLET.DR PO SCH (05:27)
[2020-04-03] MEDS: HEPARIN SOD (PORCINE) 5,000 UNIT/ML 1 ML VIAL SUBCUT SCH ×4 (07:35→21:45)
[2020-04-03] MEDS: INSULIN LISPRO 100 UNIT/ML 3 ML VIAL SUBCUT SCH ×4 (08:19→21:45)
[2020-04-03] MEDS: METOPROLOL TARTRATE 25 MG TABLET PO SCH ×2 (10:17→21:44)
[2020-04-03] MEDS: CEFTRIAXONE 1 GM/D5W RTU 1 GM/50 ML RTUPB IV SCH (10:18)
[2020-04-03] MEDS: FUROSEMIDE INJ/PF 20 MG/2 ML SDV IV SCH (10:18)
[2020-04-03] MEDS ORDERED: FUROSEMIDE INJ/PF 40 MG/4 ML SDV IV ONE (13:02)
--- NOTE | 2020-04-03 13:02 | PDOC PROGRESS REPORT ---
Subjective Progress Note for:: 04/03/20 Subjective:: Patient reported feeling stronger since blood transfusion. Still experience orthopnea. No chest pain or difficulty with breathing sitting up or sleeping with head of bed elevation at about 70 degree angle. No nausea, vomiting or abdominal pain. No fever or chills. Reason For Visit: ACUTE CHF, FABIOLA, DMTYPE 2, GERD Physical Exam Vital Signs: Temp Pulse Resp BP Pulse Ox 97.4 F 69 17 147/84 H 99 04/03/20 11:50 04/03/20 11:50 04/03/20 11:50 04/03/20 11:50 04/03/20 11:50 Intake & Output 04/02/20 04/03/20 04/04/20 06:59 06:59 06:59 Intake Total 630 1852 320 Output Total 1250 1075 Balance -620 777 320 Weight 81.7 kg 81.7 kg Physical Exam: General appearance: PRESENT: no acute distress, well-developed, well-nourished Head exam: PRESENT: atraumatic, normocephalic Eye exam: PRESENT: conjunctiva pink. ABSENT: pallor, scleral icterus Mouth exam: PRESENT: moist Respiratory exam: PRESENT: clear to auscultation crystal, decreased breath sounds Cardiovascular exam: PRESENT: RRR, +S1, +S2. ABSENT: diastolic murmur, rubs, systolic murmur GI/Abdominal exam: PRESENT: normal bowel sounds, soft. ABSENT: distended, guarding, mass, organomegaly, rebound, tenderness Extremities exam: PRESENT: left BKA, pedal edema - to thigh level. Neurological exam: PRESENT: alert, awake, oriented to person, oriented to place, oriented to time, oriented to situation, CN II-XII grossly intact. ABSENT: motor sensory deficit Psychiatric exam: PRESENT: appropriate affect, normal mood. ABSENT: homicidal ideation, suicidal ideation Skin exam: PRESENT: dry, warm Results Laboratory Results: 04/03/20 01:37 04/02/20 05:53 03/31/20 04/02/20 04/02/20 08:00 05:53 05:53 WBC RBC Hgb Hct MCV MCH MCHC RDW Plt Count Retic Count (auto) 1.68 Iron 15.3 L TIBC 284 % Saturation 5 Transferrin Ferritin 27.00 Vitamin B12 979.0 H Folate 6.78 Blood Type B POSITIVE Antibody Screen NEGATIVE 04/02/20 04/03/20 05:53 01:37 WBC 11.3 H RBC 3.92 L Hgb 10.9 L D Hct 32.9 L MCV 84 MCH 27.9 MCHC 33.2 RDW 14.7 H Plt Count 432 Retic Count (auto) Iron TIBC % Saturation Transferrin 195.04 L Ferritin Vitamin B12 Folate Blood Type Antibody Screen 03/31/20 03/31/20 07:35 12:42 Troponin I 0.058 0.061 NT-Pro-B Natriuret Pep [id number] H Impressions: Venous Doppler Study 03/31/20 09:24 IMPRESSION: NO EVIDENCE DVT OR SVT IN THE RIGHT LEG. Chest X-Ray 03/31/20 09:25 IMPRESSION: Indistinctness of the interstitium and dense bibasilar opacities that could represent a combination of pleural fluid and atelectasis. Clinical correlation to exclude CHF/volume overload is recommended. Assessment & Plan - Diagnosis (1) Heart failure with preserved ejection fraction Qualifiers: Heart failure chronicity: acute Qualified Code(s): I50.31 - Acute diastolic (congestive) heart failure Is this a current diagnosis for this admission?: Yes (2) Non-ST elevation myocardial infarction (NSTEMI) of indeterminate age Is this a current diagnosis for this admission?: Yes (3) Acute kidney injury Is this a current diagnosis for this admission?: Yes (4) Probable sepsis Is this a current diagnosis for this admission?: Yes (5) HTN (hypertension) Qualifiers: Hypertension type: essential hypertension Qualified Code(s): I10 - Essential (primary) hypertension Is this a current diagnosis for this admission?: Yes (6) Pulmonary HTN Is this a current diagnosis for this admission?: Yes (7) Diabetes mellitus type 2 in nonobese Is this a current diagnosis for this admission?: Yes (8) Anemia Qualifiers: Anemia type: unspecified type Qualified Code(s): D64.9 - Anemia, unspecified Is this a current diagnosis for this admission?: Yes - Time Time Spent with patient: 25-34 minutes Medications reviewed and adjusted accordingly: Yes Anticipated discharge: Home with Homehealth Within: Other - Inpatient Certification Based on my medical assessment, after consideration of the patient's comorbidities, presenting symptoms, or acuity I expect that the services needed warrant INPATIENT care.: Yes I certify that my determination is in accordance with my understanding of Medicare's requirements for reasonable and necessary INPATIENT services [42 CFR 412.3e].: Yes Medical Necessity: Significant Comorbidiites Make Outpatient Treatment Too Risky, Need Close Monitoring Due to Risk of Patient Decompensation, Need For Continuous Telemetry Monitoring, Risk of Complication if Not Cared For in H ospital, Risk of Diagnosis Which Will Require Inpatient Eval/Care/Monitoring Post Hospital Care: D/C Install Technician Documentation - Plan Summary Plan Summary: Increase Hydralazine to 25 mg p.o q 8 hours. Administer IV Lasix 40 mg x 1 dose now. Maintain on all other current medication management.
[2020-04-03] MEDS: HYDRALAZINE HCL 25 MG TABLET PO SCH ×2 (14:21→21:44)
[2020-04-04] MEDS: HYDRALAZINE HCL 25 MG TABLET PO SCH ×3 (05:24→21:52)
[2020-04-04] MEDS: PANTOPRAZOLE SODIUM 40 MG TABLET.DR PO SCH (05:24)
[2020-04-04] MEDS: ISOSORBIDE DINITRATE 10 MG TABLET PO SCH (05:25)
[2020-04-04] MEDS: HEPARIN SOD (PORCINE) 5,000 UNIT/ML 1 ML VIAL SUBCUT SCH ×3 (05:25→21:52)
[2020-04-04 06:28] LABS: ABSOLUTE BASOPHILS # (AUTO) 0.1 10^3/uL (0.0-0.2); ABSOLUTE EOSINOPHILS # (AUTO) 0.2 10^3/uL (0.0-0.6); ABSOLUTE LYMPHOCYTES (AUTO) 1.2 10^3/uL (0.5-4.7); ABSOLUTE MONOCYTES (AUTO) 0.5 10^3/uL (0.1-1.4); ABSOLUTE NEUT (AUTO) 9.2 10^3/uL (1.7-8.2); BASOPHILS % (AUTO) 0.9 % (0-2); EOSINOPHILS % (AUTO) 1.8 % (0-6); HEMATOCRIT 30.6 % (37.9-51.0); HEMOGLOBIN 10.1 g/dL (13.5-17.0); LYMPHOCYTES % (AUTO) 10.4 % (13-45); MEAN CORPUSCULAR HEMOGLOBIN 27.2 pg (27.0-33.4); MEAN CORPUSCULAR HGB CONC 32.9 g/dL (32.0-36.0); MEAN CORPUSCULAR VOLUME 83 fl (80-97); MONOCYTES % (AUTO) 4.5 % (3-13); PLATELET COUNT 379 10^3/uL (150-450); RED CELL DISTRIBUTION WIDTH 14.7 % (11.5-14.0); SEGMENTED NEUTROPHILS % (AUTO) 82.4 % (42-78); TOTAL CELLS COUNTED % (AUTO) 100 %; WHITE BLOOD COUNT 11.2 10^3/uL (4.0-10.5)
[2020-04-04 06:49] LABS: ANION GAP 6 (5-19); BLOOD UREA NITROGEN 27 mg/dL (7-20); CALCIUM 8.6 mg/dL (8.4-10.2); CARBON DIOXIDE 25 mmol/L (22-30); CHLORIDE 107 mmol/L (98-107); GLUCOSE 166 mg/dL (75-110); PHOSPHORUS 3.7 mg/dL (2.5-4.5); POTASSIUM 3.9 mmol/L (3.6-5.0)
[2020-04-04] MEDS: INSULIN LISPRO 100 UNIT/ML 3 ML VIAL SUBCUT SCH ×4 (07:54→21:59)
[2020-04-04] MEDS: CEFTRIAXONE 1 GM/D5W RTU 1 GM/50 ML RTUPB IV SCH (09:14)
[2020-04-04] MEDS: FUROSEMIDE INJ/PF 20 MG/2 ML SDV IV SCH (09:14)
[2020-04-04] MEDS: METOPROLOL TARTRATE 25 MG TABLET PO SCH ×2 (09:14→21:51)
[2020-04-04] MEDS: ISOSORBIDE DINITRATE 20 MG TABLET PO SCH ×2 (13:45→21:51)
[2020-04-04] MEDS ORDERED: HYDRALAZINE HCL 25 MG TABLET PO SCH (14:00)
--- NOTE | 2020-04-04 19:37 | PDOC PROGRESS REPORT ---
Subjective Progress Note for:: 04/04/20 Subjective:: Patient denied any chest pain or difficulty with breathing. No nausea, vomiting or abdominal pain. No fever or chills. Reason For Visit: ACUTE CHF, FABIOLA, DMTYPE 2, GERD Physical Exam Vital Signs: Temp Pulse Resp BP Pulse Ox 97.2 F 83 14 166/83 H 96 04/04/20 07:30 04/04/20 07:30 04/04/20 07:30 04/04/20 07:30 04/04/20 07:30 Intake & Output 04/03/20 04/04/20 04/05/20 06:59 06:59 06:59 Intake Total 1852 860 Output Total 1075 2250 Balance 777 -1390 Weight 81.7 kg 81.9 kg Physical Exam: General appearance: PRESENT: no acute distress, well-developed, well-nourished Head exam: PRESENT: atraumatic, normocephalic Eye exam: PRESENT: conjunctiva pink. ABSENT: pallor, scleral icterus Mouth exam: PRESENT: moist Respiratory exam: PRESENT: clear to auscultation crystal, decreased breath sounds Cardiovascular exam: PRESENT: RRR, +S1, +S2. ABSENT: diastolic murmur, rubs, systolic murmur GI/Abdominal exam: PRESENT: normal bowel sounds, soft. ABSENT: distended, guarding, mass, organomegaly, rebound, tenderness Extremities exam: PRESENT: left BKA, pedal edema - to thigh level. Neurological exam: PRESENT: alert, awake, oriented to person, oriented to place, oriented to time, oriented to situation, CN II-XII grossly intact. ABSENT: motor sensory deficit Psychiatric exam: PRESENT: appropriate affect, normal mood. ABSENT: homicidal ideation, suicidal ideation Skin exam: PRESENT: dry, warm Results Laboratory Results: 04/04/20 05:50 04/04/20 05:50 04/04/20 04/04/20 05:50 05:50 WBC 11.2 H RBC 3.70 L Hgb 10.1 L Hct 30.6 L MCV 83 MCH 27.2 MCHC 32.9 RDW 14.7 H Plt Count 379 Seg Neutrophils % 82.4 H Sodium 138.0 Potassium 3.9 Chloride 107 Carbon Dioxide 25 Anion Gap 6 BUN 27 H Creatinine 2.21 H Est GFR ( Amer) 38 L Glucose 166 H Calcium 8.6 Phosphorus 3.7 Magnesium 1.8 03/31/20 03/31/20 07:35 12:42 Troponin I 0.058 0.061 NT-Pro-B Natriuret Pep [id number] H Impressions: Venous Doppler Study 03/31/20 09:24 IMPRESSION: NO EVIDENCE DVT OR SVT IN THE RIGHT LEG. Chest X-Ray 03/31/20 09:25 IMPRESSION: Indistinctness of the interstitium and dense bibasilar opacities that could represent a combination of pleural fluid and atelectasis. Clinical correlation to exclude CHF/volume overload is recommended. Assessment & Plan - Diagnosis (1) Heart failure with preserved ejection fraction Qualifiers: Heart failure chronicity: acute Qualified Code(s): I50.31 - Acute diastolic (congestive) heart failure Is this a current diagnosis for this admission?: Yes (2) Non-ST elevation myocardial infarction (NSTEMI) of indeterminate age Is this a current diagnosis for this admission?: Yes (3) Acute kidney injury Is this a current diagnosis for this admission?: Yes (4) Probable sepsis Is this a current diagnosis for this admission?: Yes (5) HTN (hypertension) Qualifiers: Hypertension type: essential hypertension Qualified Code(s): I10 - Essential (primary) hypertension Is this a current diagnosis for this admission?: Yes (6) Pulmonary HTN Is this a current diagnosis for this admission?: Yes (7) Diabetes mellitus type 2 in nonobese Is this a current diagnosis for this admission?: Yes (8) Anemia Qualifiers: Anemia type: unspecified type Qualified Code(s): D64.9 - Anemia, unspecified Is this a current diagnosis for this admission?: Yes - Time Time Spent with patient: 25-34 minutes Level of Care: IMCU Medications reviewed and adjusted accordingly: Yes Anticipated discharge: Home with Homehealth Within: Other - Inpatient Certification Based on my medical assessment, after consideration of the patient's comorbidities, presenting symptoms, or acuity I expect that the services needed warrant INPATIENT care.: Yes I certify that my determination is in accordance with my understanding of Medicare's requirements for reasonable and necessary INPATIENT services [42 CFR 412.3e].: Yes Medical Necessity: Significant Comorbidiites Make Outpatient Treatment Too Risky, Need Close Monitoring Due to Risk of Patient Decompensation, Need For Continuous Telemetry Monitoring, Risk of Complication if Not Cared For in Hospital, Risk of Diagnosis Which Will Require Inpatient Eval/Care/Monitoring Post Hospital Care: D/C Pest Control Operator Documentation - Plan Summary Plan Summary: Increase Hydralazine to 37.5 mg po q 8 hours. Increase Isosorbide Dinitrate to 20 mg po q 8 hours. Continue with all other current medication management. F/up on request for his medical record form hospitalization in [place].
[2020-04-05] MEDS: HYDRALAZINE HCL 25 MG TABLET PO SCH ×2 (05:43→14:25)
[2020-04-05] MEDS: PANTOPRAZOLE SODIUM 40 MG TABLET.DR PO SCH (05:43)
[2020-04-05] MEDS: ISOSORBIDE DINITRATE 20 MG TABLET PO SCH ×3 (05:43→22:11)
[2020-04-05] MEDS: HEPARIN SOD (PORCINE) 5,000 UNIT/ML 1 ML VIAL SUBCUT SCH ×3 (05:44→22:08)
[2020-04-05] MEDS: INSULIN LISPRO 100 UNIT/ML 3 ML VIAL SUBCUT SCH ×4 (08:08→22:08)
[2020-04-05] MEDS: METOPROLOL TARTRATE 25 MG TABLET PO SCH ×2 (09:04→22:07)
[2020-04-05] MEDS: CEFTRIAXONE 1 GM/D5W RTU 1 GM/50 ML RTUPB IV SCH (09:04)
[2020-04-05] MEDS: FUROSEMIDE INJ/PF 20 MG/2 ML SDV IV SCH (09:04)
[2020-04-05] MEDS ORDERED: FUROSEMIDE INJ/PF 20 MG/2 ML SDV IV ONE (18:22)
--- NOTE | 2020-04-05 18:22 | PDOC PROGRESS REPORT ---
Subjective Progress Note for:: 04/05/20 Subjective:: Patient denied chest pain. He claimed improvement in difficulty with breathing and without use of supplemental oxygen overnight. No nausea, vomiting or abdominal pain. No fever or chills. Reason For Visit: ACUTE CHF, FABIOLA, DMTYPE 2, GERD Physical Exam Vital Signs: Temp Pulse Resp BP Pulse Ox 98.2 F 81 16 147/73 H 96 04/05/20 16:05 04/05/20 16:05 04/05/20 16:05 04/05/20 16:05 04/05/20 16:05 Intake & Output 04/04/20 04/05/20 04/06/20 06:59 06:59 06:59 Intake Total 860 1013 544 Output Total 2250 680 Balance -1390 333 544 Weight 81.9 kg 81 kg Physical Exam: General appearance: PRESENT: no acute distress, well-developed, well-nourished Head exam: PRESENT: atraumatic, normocephalic Eye exam: PRESENT: conjunctiva pink. ABSENT: pallor, scleral icterus Mouth exam: PRESENT: moist Respiratory exam: PRESENT: clear to auscultation crystal, decreased breath sounds Cardiovascular exam: PRESENT: RRR, +S1, +S2. ABSENT: diastolic murmur, rubs, systolic murmur GI/Abdominal exam: PRESENT: normal bowel sounds, soft. ABSENT: distended, guarding, mass, organomegaly, rebound, tenderness Extremities exam: PRESENT: left BKA, improving pedal edema - to thigh level. Neurological exam: PRESENT: alert, awake, oriented to person, oriented to place, oriented to time, oriented to situation, CN II-XII grossly intact. ABSENT: motor sensory deficit Psychiatric exam: PRESENT: appropriate affect, normal mood. ABSENT: homicidal ideation, suicidal ideation Skin exam: PRESENT: dry, warm Results Laboratory Results: 04/04/20 05:50 04/04/20 05:50 03/31/20 08:00 Blood Blood Culture - Final NO GROWTH IN 5 DAYS 03/31/20 07:35 Blood Blood Culture - Final NO GROWTH IN 5 DAYS 03/31/20 03/31/20 07:35 12:42 Troponin I 0.058 0.061 NT-Pro-B Natriuret Pep 98545 H Impressions: Venous Doppler Study 03/31/20 09:24 IMPRESSION: NO EVIDENCE DVT OR SVT IN THE RIGHT LEG. Chest X-Ray 03/31/20 09:25 IMPRESSION: Indistinctness of the interstitium and dense bibasilar opacities that could represent a combination of pleural fluid and atelectasis. Clinical correlation to exclude CHF/volume overload is recommended. Assessment & Plan - Diagnosis (1) Heart failure with preserved ejection fraction Qualifiers: Heart failure chronicity: acute Qualified Code(s): I50.31 - Acute diastolic (congestive) heart failure Is this a current diagnosis for this admission?: Yes (2) Non-ST elevation myocardial infarction (NSTEMI) of indeterminate age Is this a current diagnosis for this admission?: Yes (3) Acute kidney injury Is this a current diagnosis for this admission?: Yes (4) Probable sepsis Is this a current diagnosis for this admission?: Yes (5) HTN (hypertension) Qualifiers: Hypertension type: essential hypertension Qualified Code(s): I10 - Essential (primary) hypertension Is this a current diagnosis for this admission?: Yes (6) Pulmonary HTN Is this a current diagnosis for this admission?: Yes (7) Diabetes mellitus type 2 in nonobese Is this a current diagnosis for this admission?: Yes (8) Anemia Qualifiers: Anemia type: unspecified type Qualified Code(s): D64.9 - Anemia, unspecified Is this a current diagnosis for this admission?: Yes - Time Time Spent with patient: 25-34 minutes Level of Care: IMCU Medications reviewed and adjusted accordingly: Yes Anticipated discharge: Home with Homehealth Within: Other - Inpatient Certification Based on my medical assessment, after consideration of the patient's comorbidities, presenting symptoms, or acuity I expect that the services needed warrant INPATIENT care.: Yes I certify that my determination is in accordance with my understanding of [facility]'s requirements for reasonable and necessary INPATIENT services [42 CFR 412.3e].: Yes Medical Necessity: Significant Comorbidiites Make Outpatient Treatment Too Risky, Need Close Monitoring Due to Risk of Patient Decompensation, Need For Continuous Telemetry Monitoring, Risk of Complication if Not Cared For in Hospital, Risk of Diagnosis Which Will Require Inpatient Eval/Care/Monitoring Post 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 Continue all other current medication management. Obtain BMP and Mag level. Follow up on medical record request.
[2020-04-05] MEDS: HYDRALAZINE HCL 50 MG TABLET PO SCH (22:08)
[2020-04-05 22:33] LABS: ANION GAP 7 (5-19); BLOOD UREA NITROGEN 29 mg/dL (7-20); CALCIUM 8.2 mg/dL (8.4-10.2); CARBON DIOXIDE 21 mmol/L (22-30); CHLORIDE 107 mmol/L (98-107); GLUCOSE 195 mg/dL (75-110); POTASSIUM 4.1 mmol/L (3.6-5.0)
[2020-04-06] MEDS: HEPARIN SOD (PORCINE) 5,000 UNIT/ML 1 ML VIAL SUBCUT SCH ×3 (05:35→14:44)
[2020-04-06] MEDS: ISOSORBIDE DINITRATE 20 MG TABLET PO SCH ×2 (05:35→14:44)
[2020-04-06] MEDS: HYDRALAZINE HCL 50 MG TABLET PO SCH ×2 (05:35→14:44)
[2020-04-06] MEDS: PANTOPRAZOLE SODIUM 40 MG TABLET.DR PO SCH (05:35)
[2020-04-06] MEDS: INSULIN LISPRO 100 UNIT/ML 3 ML VIAL SUBCUT SCH ×3 (10:12→16:34)
[2020-04-06] MEDS: FUROSEMIDE INJ/PF 20 MG/2 ML SDV IV SCH (11:03)
[2020-04-06] MEDS: CEFTRIAXONE 1 GM/D5W RTU 1 GM/50 ML RTUPB IV SCH (11:03)
[2020-04-06] MEDS: METOPROLOL TARTRATE 25 MG TABLET PO SCH (11:11)
[2020-04-06 17:54] VITALS: BP 146/68
--- NOTE | 2020-04-06 18:15 | PDOC DISCHARGE SUMMARY ---
Impression - Admit/DC Date/PCP Admission Date/Primary Care Provider: 03/31/20 12:26 SALMOON HUNT Discharge Date: 04/06/20 - Discharge Diagnosis (1) Heart failure with preserved ejection fraction Is this a current diagnosis for this admission?: Yes (2) Non-ST elevation myocardial infarction (NSTEMI) of indeterminate age Is this a current diagnosis for this admission?: Yes (3) Acute kidney injury Is this a current diagnosis for this admission?: Yes (4) Probable sepsis Is this a current diagnosis for this admission?: Yes (5) HTN (hypertension) Is this a current diagnosis for this admission?: Yes (6) Pulmonary HTN Is this a current diagnosis for this admission?: Yes (7) Diabetes mellitus type 2 in nonobese Is this a current diagnosis for this admission?: Yes (8) Anemia Is this a current diagnosis for this admission?: Yes - Assessment Summary: Patient was admitted due to worsening difficulty with breathing, bilateral lower extremities swelling up to BKA level in left leg. He was recently discharged from [facility] in [place] on 03/28/2020 before presenting to our facility ED on 03/31/2020. His initial evaluation was significant for newly diagnosed CHF, indeterminate NSTEMI, FABIOLA, and probable sepsis with morbidities including Diabetes Mellitus Type 2, HTN, and Hyperlipidemia s/p left BKA.He was managed with GDMT based on his morbidities and presenting problems. He was treated with IV Rocephin and his blood culture was no growth after 5 days of incubation. His renal indices improved gradually on IV Lasix therapy with negative fluid balance. He was maintained on Metoprolol., Hydralazine, Isosorbide and IV Lasix therapy. He did demonstrated significant drop in his hemoglobin, probably due to his acute illness nd suppressed kidney function. He was transfused 2 units PRBC due to significant significant improvement. His breathing has improved with improvement in his fluid overload status and orthopnea. He will be discharged home today and follow up in the office as instructed upon discharge. - Additional Information Resuscitation Status: Full Code Discharge Diet: Cardiac, Diabetic Discharge Activity: Activity As Tolerated, Balance Activity w/Rest, Weigh Daily Referrals: SALOMON HUNT MD [Primary Care Provider] - 04/11/20 10:00 am Prescriptions: Hydralazine HCl [Apresoline 50 mg Tablet] 50 mg PO Q8 #90 tablet Carvedilol 25 mg PO BID #60 tablet Aspirin [Ecotrin 81 mg EC Tablet] 81 mg PO DAILY #90 tabec Glipizide [Glucotrol 5 mg Tablet] 5 mg PO DAILY #90 tablet Isosorbide Dinitrate [Isordil Titradose 20 mg Tablet] 20 mg PO Q8 #90 tablet Furosemide [Lasix 40 mg Tablet] 40 mg PO QAM #30 tablet Atorvastatin Calcium [Lipitor 20 mg Tablet] 20 mg PO QHS #30 tablet Home Medications: Aspirin [Ecotrin 81 mg EC Tablet] 81 mg PO DAILY #90 tabec 04/06/20 Atorvastatin Calcium [Lipitor 20 mg Tablet] 20 mg PO QHS #30 tablet 04/06/20 Carvedilol 25 mg PO BID #60 tablet 04/06/20 Furosemide [Lasix 40 mg Tablet] 40 mg PO QAM #30 tablet 04/06/20 Glipizide [Glucotrol 5 mg Tablet] 5 mg PO DAILY #90 tablet 04/06/20 Hydralazine HCl [Apresoline 50 mg Tablet] 50 mg PO Q8 #90 tablet 04/06/20 Isosorbide Dinitrate [Isordil Titradose 20 mg Tablet] 20 mg PO Q8 #90 tablet 04/06/20 History of Present Illiness History of Present Illness: DEB CUADRA is a 50 year old male patient known to my practice who presented to the ED with complain about persistent difficulty with breathing, particularly laying down at night and associated nonproductive cough. 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 He claimed that he had to make a delivery to [place] recently and upon arrival noticed nonproductive cough and leg swelling couple of weeks ago. He was evaluated at treated as case of possible pneumonia with oral antibiotic. Due to his morbidities he was prescribed diuretic at the same time. He reported some improvement in his leg swelling and coughing thereafter. He subsequently travelled to [facility] for another delivery and while he was there developed worsening cough and difficulty to lay down at night. He subsequently when to the hospital in [place] where he was treated with IV Furosemide. He was subsequently discharged home on medications that suggested congestive heart failure and NSTEMI as per his discharge papers. Patient claimed that he was not informed about these diagnosis pr given any prescription for the listed medications including Eliquis, Carvedilol, Lasix, Lisinopril, and Aspirin. He did not fill any prescription nor take any of the listed medication since 03/28/2020. His initial evaluation in the ED was significant for 3+ edema involving the lower extremities with left BKA, severely elevated NT-Pro BNP, leukocytosis with left shift, renal injury indices with anemia and hypokalemia, lower extremities venous doppler that suggested no SVT or DVT, and chest X ray with bilateral basal opacity suggestive of pleural effusion, possible atelectasis and abnormal 12 lead ECG. He was advised hospitalization for further evaluation and management. He admitted to completion of lower extremities venous evaluation in [place] but no echocardiogram performed. I was able to review his medical record from [facility] hospitalization from 03/25/2020 to discharge on 03/28/2020 before his discharge from our facility today. Copy of record remain on his chart. Hospital Course Hospital Course: Patient was admitted due to worsening difficulty with breathing, bilateral lower extremities swelling up to BKA level in left leg. He was recently discharged from [facility] in [place] on 03/28/2020 before presenting to our facility ED on 03/31/2020. His initial evaluation was significant for newly diagnosed CHF, indeterminate NSTEMI, FABIOLA, and probable sepsis with morbidities including Diabetes Mellitus Type 2, HTN, and Hyperlipidemia s/p left BKA.He was managed with GDMT based on his morbidities and presenting problems. He was treated with IV Rocephin and his blood culture was no growth after 5 days of incubation. His renal indices improved gradually on IV Lasix therapy with negative fluid balance. He was maintained on Metoprolol., Hydralazine, Isosorbide and IV Lasix therapy. He did demonstrated significant drop in his hemoglobin, probably due to his acute illness nd suppressed kidney function. He was transfused 2 units PRBC due to significant significant improvement. His breathing has improved with improvement in his fluid overload status and orthopnea. He will be discharged home today and follow up in the office as instructed upon discharge. Physical Exam Vital Signs: Temp Pulse Resp BP Pulse Ox 97.9 F 75 16 150/83 H 97 04/06/20 11:49 04/06/20 14:00 04/06/20 11:49 04/06/20 11:49 04/06/20 11:49 Intake & Output 04/05/20 04/06/20 04/07/20 06:59 06:59 06:59 Intake Total 1013 1206 50 Output Total 680 200 Balance 333 1006 50 Weight 81 kg 82.1 kg General appearance: PRESENT: no acute distress, well-developed, well-nourished Head exam: PRESENT: atraumatic, normocephalic Eye exam: PRESENT: conjunctiva pink. ABSENT: pallor, scleral icterus Mouth exam: PRESENT: moist Respiratory exam: PRESENT: clear to auscultation crystal, decreased breath sounds at lung bases Cardiovascular exam: PRESENT: RRR, +S1, +S2. ABSENT: diastolic murmur, rubs, systolic murmur GI/Abdominal exam: PRESENT: normal bowel sounds, soft. ABSENT: distended, guarding, mass, organomegaly, rebound, tenderness Extremities exam: PRESENT: left BKA, improving pedal edema - to thigh level. Neurological exam: PRESENT: alert, awake, oriented to person, oriented to place, oriented to time, oriented to situation, CN II-XII grossly intact. ABSENT: motor sensory deficit Psychiatric exam: PRESENT: appropriate affect, normal mood. ABSENT: homicidal ideation, suicidal ideation Skin exam: PRESENT: dry, warm Results Laboratory Results: WBC 11.2 10^3/uL (4.0-10.5) H 04/04/20 05:50 RBC 3.70 10^6/uL (4.35-5.55) L 04/04/20 05:50 Hgb 10.1 g/dL (13.5-17.0) L 04/04/20 05:50 Hct 30.6 % (37.9-51.0) L 04/04/20 05:50 MCV 83 fl (80-97) 04/04/20 05:50 MCH 27.2 pg (27.0-33.4) 04/04/20 05:50 MCHC 32.9 g/dL (32.0-36.0) 04/04/20 05:50 RDW 14.7 % (11.5-14.0) H 04/04/20 05:50 Plt Count 379 10^3/uL (150-450) 04/04/20 05:50 Lymph % (Auto) 10.4 % (13-45) L 04/04/20 05:50 [place] % (Auto) 4.5 % (3-13) 04/04/20 05:50 Eos % (Auto) 1.8 % (0-6) 04/04/20 05:50 Baso % (Auto) 0.9 % (0-2) 04/04/20 05:50 Reticulocyte # 0.046 10^6/uL (0.028-0.122) 04/02/20 05:53 Absolute Neuts (auto) 9.2 10^3/uL (1.7-8.2) H 04/04/20 05:50 Absolute Lymphs (auto) 1.2 10^3/uL (0.5-4.7) 04/04/20 05:50 Absolute Monos (auto) 0.5 10^3/uL (0.1-1.4) 04/04/20 05:50 Absolute Eos (auto) 0.2 10^3/uL (0.0-0.6) 04/04/20 05:50 Absolute Basos (auto) 0.1 10^3/uL (0.0-0.2) 04/04/20 05:50 Seg Neutrophils % 82.4 % (42-78) H 04/04/20 05:50 Retic Count (auto) 1.68 % (0.66-2.85) 04/02/20 05:53 PT 16.0 SEC (11.4-15.4) H 03/31/20 07:35 INR 1.27 03/31/20 07:35 APTT 42.1 SEC (23.5-35.8) H 03/31/20 07:35 D-Dimer 2.16 ug/mL (0.00-0.50) H 03/31/20 07:35 Sodium 135.3 mmol/L (137-145) L 04/05/20 22:05 Potassium 4.1 mmol/L (3.6-5.0) 04/05/20 22:05 Chloride 107 mmol/L (98-107) 04/05/20 22:05 Carbon Dioxide 21 mmol/L (22-30) L 04/05/20 22:05 Anion Gap 7 (5-19) 04/05/20 22:05 BUN 29 mg/dL (7-20) H 04/05/20 22:05 Creatinine 1.98 mg/dL (0.52-1.25) H 04/05/20 22:05 Est GFR ( Amer) 43 (>60) L 04/05/20 22:05 Est GFR (Non-Af Amer) Cancelled 04/05/20 19:00 Est GFR (MDRD) Non-Af 36 (>60) L 04/05/20 22:05 Glucose 195 mg/dL (75-110) H 04/05/20 22:05 POC Glucose 197 mg/dL (70-110) H 04/06/20 16:24 Hemoglobin A1c % 7.6 % (4.7-6.0) H 04/01/20 06:01 Lactic Acid 1.5 mmol/L (0.7-2.1) 03/31/20 07:35 Calcium 8.2 mg/dL (8.4-10.2) L 04/05/20 22:05 Phosphorus 3.7 mg/dL (2.5-4.5) 04/04/20 05:50 Magnesium 1.8 mg/dL (1.6-2.3) 04/05/20 22:05 Iron 15.3 ug/dL (49-181) L 04/02/20 05:53 TIBC 284 ug/dL (250-450) 04/02/20 05:53 % Saturation 5 % 04/02/20 05:53 Transferrin 195.04 mg/dL (206.00-381.00) L 04/02/20 05:53 Ferritin 27.00 ng/mL (17.9-464.0) 04/02/20 05:53 Total Bilirubin 0.3 mg/dL (0.2-1.3) 04/01/20 06:01 Direct Bilirubin 0.0 mg/dL (0.0-0.4) 04/01/20 06:01 Neonat Total Bilirubin Not Reportable 04/01/20 06:01 Neonat Direct Bilirubin Not Reportable 04/01/20 06:01 Neonat Indirect Bili Not Reportable 04/01/20 06:01 AST 24 U/L (17-59) 04/01/20 06:01 ALT 19 U/L (<50) 04/01/20 06:01 Alkaline Phosphatase 90 U/L (38-126) 04/01/20 06:01 Troponin I 0.061 ng/mL 03/31/20 12:42 NT-Pro-B Natriuret Pep 03910 pg/mL (<125) H 03/31/20 07:35 Total Protein 6.3 g/dL (6.3-8.2) 04/01/20 06:01 Albumin 2.7 g/dL (3.5-5.0) L 04/01/20 06:01 Triglycerides 84 mg/dL (<150) 04/01/20 06:01 Cholesterol 137.02 mg/dL (0-200) 04/01/20 06:01 LDL Cholesterol Direct 72 mg/dL (<100) 04/01/20 06:01 VLDL Cholesterol 17.0 mg/dL (10-31) 04/01/20 06:01 HDL Cholesterol 42 mg/dL (>40) 04/01/20 06:01 EGFR Cancelled 04/05/20 19:00 Vitamin B12 979.0 pg/mL (239-931) H 04/02/20 05:53 Folate 6.78 ng/mL (>2.76) 04/02/20 05:53 Urine Color STRAW 03/31/20 13:55 Urine Appearance CLEAR 03/31/20 13:55 Urine pH 8.0 (5.0-9.0) 03/31/20 13:55 Ur Specific Mchenry 1.008 03/31/20 13:55 Urine Protein 100 mg/dL (NEGATIVE) H 03/31/20 13:55 Urine Glucose (UA) 50 mg/dL (NEGATIVE) H 03/31/20 13:55 Urine Ketones NEGATIVE mg/dL (NEGATIVE) 03/31/20 13:55 Urine Blood SMALL (NEGATIVE) H 03/31/20 13:55 Urine Nitrite NEGATIVE (NEGATIVE) 03/31/20 13:55 Urine Bilirubin NEGATIVE (NEGATIVE) 03/31/20 13:55 Urine Urobilinogen NEGATIVE mg/dL (<2.0) 03/31/20 13:55 Ur Leukocyte Esterase NEGATIVE (NEGATIVE) 03/31/20 13:55 Urine WBC (Auto) 1 /HPF 03/31/20 13:55 Urine RBC (Auto) 2 /HPF 03/31/20 13:55 Urine Mucus (Auto) RARE /LPF 03/31/20 13:55 Urine Ascorbic Acid NEGATIVE (NEGATIVE) 03/31/20 13:55 POC Stool Occult Blood POSITIVE (NEGATIVE) 03/31/20 12:17 SARS-CoV-2 (PCR) NEGATIVE (NEGATIVE) 03/31/20 11:53 Blood Type B POSITIVE 03/31/20 08:00 Antibody Screen NEGATIVE 03/31/20 08:00 Crossmatch See Detail 03/31/20 08:00 03/31/20 03/31/20 07:35 12:42 Troponin I 0.058 0.061 NT-Pro-B Natriuret Pep [id number] H Impressions: Venous Doppler Study 03/31/20 09:24 IMPRESSION: NO EVIDENCE DVT OR SVT IN THE RIGHT LEG. Chest X-Ray 03/31/20 09:25 IMPRESSION: Indistinctness of the interstitium and dense bibasilar opacities that could represent a combination of pleural fluid and atelectasis. Clinical correlation to exclude CHF/volume overload is recommended. Plan Health Concerns: Multiple compounding morbidities with increase risk of readmission. Compliance with medication, dietary salt and fluid restrictions. Plan of Treatment: Close post discharge follow up. Avoidance of nephrotoxic medication. Goals: Reduce readmission rate. Time Spent: Greater than 30 Minutes - Counseling and post discharge care plan discussion relatd to his morbidities and above listed health care concerns. Stroke Is this a Stroke Patient?: No Acute Heart Failure - Is this a Heart Failure Patient?: Yes Documentation of LVEF assessment?: Yes LVEF: LVEF Greater Than 40% Anticoagulant Therapy: Yes Discharged on Evidence-Based Beta Blockers: Yes Discharged on ARNI?: No-Document Contraindications Reason(s) not discharged on ARNI: Impaired/worsening renal functions Discharged on ARB?: No-document contraindications Reason(s) not Discharged on ARB: Impaired/worsening renal functions Discharged on ACEI?: No, document contraindications Reason(s) not Discharged on ACEI: Impaied/worsening renal function For LVEF <35%, discharged on Aldosterone Antagonist?: N/A (LVEF > or = 35%) Follow-up Appointment scheduled within 7 days?: Yes
== END 2020-04-06 18:25 | disposition home or self-care (01) | DRG 871 ==
LOC: ER 06:59 → EH 12:26 → 3S 15:36
PROVIDERS: ADMIT Internal Medicine Geriatric Medicine; ATTEND Internal Medicine Geriatric Medicine
PROC: 30233N1 Transfusion of Nonautologous Red Blood Cells into Peripheral Vein, Percutaneous Approach (ICD-10-PCS; principal; 2020-04-02)
DX: A41.9 Sepsis, unspecified organism (principal); I21.4 Non-ST elevation (NSTEMI) myocardial infarction; I50.31 Acute diastolic (congestive) heart failure; N17.9 Acute kidney failure, unspecified; I11.0 Hypertensive heart disease with heart failure; E11.9 Type 2 diabetes mellitus without complications; K21.9 Gastro-esophageal reflux disease without esophagitis; D64.9 Anemia, unspecified; I27.20 Pulmonary hypertension, unspecified; E78.5 Hyperlipidemia, unspecified; F17.210 Nicotine dependence, cigarettes, uncomplicated; Z89.512 Acquired absence of left leg below knee; Z79.82 Long term (current) use of aspirin; Z79.899 Other long term (current) drug therapy; Z79.84 Long term (current) use of oral hypoglycemic drugs; Z88.8 Allergy status to other drugs, medicaments and biological substances; Z83.3 Family history of diabetes mellitus
CPT/HCPCS: 36415; 36430; 71045; 80048; 80053; 80061; 81001; 82270; 82607; 82728; 82746; 82962; 83036; 83540; 83550; 83605; 83735; 83880; 84100; 84466; 84484; 85025; 85027; 85045; 85379; 85610; 85730; 86850; 86900; 86901; 86920; 87040; 87635; 93005; 93010; 93306; 93971; 94640; 94799; 96374; 99285; C9803; J0696; J1644; J1815; J1940; J3490; P9016

== ENCOUNTER 2020-10-21 09:14 | Inpatient (IN) | payer SELFPAY ==
--- NOTE | 2020-10-21 10:25 | ER Document Report ---
ED Medical Screen (RME) - General Chief Complaint: Shortness Of Breath Stated Complaint: SHORT OF BREATH,LEG SWELLING Time Seen by Provider: 10/21/20 10:19 Primary Care Provider: SALOMON HUNT MD [Primary Care Provider] - Follow up as needed Notes: 50-year-old male presented to ED for complaint of shortness of breath difficulty breathing swelling to his legs. He is supposed to be taking Lasix daily did not take it this morning because he was coming to the emergency room. He states he needs some air right now. His O2 sat was at 95%. I have ordered O2 form as well as blood urine chest x-ray and Covid testing. I have greeted and performed a rapid initial assessment of this patient. A comprehensive ED assessment and evaluation of the patient, analysis of test results and completion of medical decision making process will be conducted by an additional ED providers. TRAVEL OUTSIDE OF THE [place] IN LAST 30 DAYS: No - Related Data Allergies/Adverse Reactions: promethazine HCl [From Phenergan] Adverse Reaction (Verified 10/29/18 09:02) Past Medical History - Social History Frequency of alcohol use: None Drug Abuse: None - Past Medical History Cardiac Medical History: Reports: Hx Congestive Heart Failure, Hx Heart Attack Denies: Hx Coronary Artery Disease, Hx Hypertension Pulmonary Medical History: Denies: Hx Asthma, Hx Bronchitis, Hx COPD, Hx Pneumonia Neurological Medical History: Denies: Hx Cerebrovascular Accident, Hx Seizures Endocrine Medical History: Reports: Hx Diabetes Mellitus Type 1, Hx Diabetes Mellitus Type 2 Renal/ Medical History: Denies: Hx Peritoneal Dialysis GI Medical History: Reports: Hx Gastritis, Hx Gastroesophageal Reflux Disease, Hx Ulcer. Denies: Hx Hiatal Hernia Musculoskeltal Medical History: Denies Hx Arthritis Psychiatric Medical History: Denies: Hx Depression Past Surgical History: Reports: Hx Orthopedic Surgery, Other - left BKA - Immunizations Hx Diphtheria, Pertussis, Tetanus Vaccination: Yes - 2007 Physical Exam - Vital signs Vitals: Temp Pulse Resp BP Pulse Ox 97.7 F 88 22 H 160/103 H 96 10/21/20 09:22 10/21/20 09:22 10/21/20 09:22 10/21/20 09:22 10/21/20 09:22 Course - Vital Signs Vital signs: Temp Pulse Resp BP Pulse Ox 97.7 F 88 22 H 160/103 H 96 10/21/20 09:22 10/21/20 09:22 10/21/20 09:22 10/21/20 09:22 10/21/20 09:22 Doctor's Discharge - Discharge Referrals: SALOMON HUNT MD [Primary Care Provider] - Follow up as needed
--- NOTE | 2020-10-21 11:48 | RADIOLOGY REPORT (SQ) ---
EXAM DESCRIPTION: CHEST SINGLE VIEW IMAGES COMPLETED DATE/TIME: 10/21/2020 11:16 am REASON FOR STUDY: Short of breath cough COMPARISON: 03/31/2020 EXAM PARAMETERS: NUMBER OF VIEWS: One view. TECHNIQUE: Single frontal radiographic view of the chest acquired. RADIATION DOSE: NA LIMITATIONS: None. FINDINGS: LUNGS AND PLEURA: Bilateral pleural effusions with bibasilar atelectasis versus consolidat ion and increased perihilar lung markings. No pneumothorax. MEDIASTINUM AND HILAR STRUCTURES: No masses. Contour normal. HEART AND VASCULAR STRUCTURES: Normal cardiac silhouette with the appearance of increased vascular co ngestion. BONES: No acute findings. HARDWARE: None in the chest. OTHER: No other significant finding. IMPRESSION: Constellation of findings are nonspecific. Differential considerations include pulmonar y edema and/or infectious process. TECHNICAL DOCUMENTATION: JOB ID: [id number] 2010 [employer]- All Rights Reserved Reading location - IP/workstation name: [email or web address]
[2020-10-21 11:49] LABS: ABSOLUTE BASOPHILS # (AUTO) 0.1 10^3/uL (0.0-0.2); ABSOLUTE EOSINOPHILS # (AUTO) 0.2 10^3/uL (0.0-0.6); ABSOLUTE LYMPHOCYTES (AUTO) 1.5 10^3/uL (0.5-4.7); ABSOLUTE MONOCYTES (AUTO) 0.3 10^3/uL (0.1-1.4); ABSOLUTE NEUT (AUTO) 6.6 10^3/uL (1.7-8.2); BASOPHILS % (AUTO) 0.6 % (0-2); EOSINOPHILS % (AUTO) 2.2 % (0-6); HEMATOCRIT 32.8 % (37.9-51.0); HEMOGLOBIN 10.9 g/dL (13.5-17.0); LYMPHOCYTES % (AUTO) 16.9 % (13-45); MEAN CORPUSCULAR HEMOGLOBIN 28.8 pg (27.0-33.4); MEAN CORPUSCULAR HGB CONC 33.1 g/dL (32.0-36.0); MEAN CORPUSCULAR VOLUME 87 fl (80-97); PLATELET COUNT 302 10^3/uL (150-450); RED BLOOD COUNT 3.78 10^6/uL (4.35-5.55); RED CELL DISTRIBUTION WIDTH 13.1 % (11.5-14.0); SEGMENTED NEUTROPHILS % (AUTO) 76.3 % (42-78); TOTAL CELLS COUNTED % (AUTO) 100 %; WHITE BLOOD COUNT 8.6 10^3/uL (4.0-10.5)
[2020-10-21] MEDS ORDERED: FUROSEMIDE INJ/PF 40 MG/4 ML SDV IV ONE ×2 (11:52→17:09)
[2020-10-21] MEDS ORDERED: NITROGLYCERIN 2% OINTMENT 1 GM PACKET TP ONE ×2 (11:53→16:10)
[2020-10-21 12:10] LABS: ALBUMIN 3.3 g/dL (3.5-5.0); ALKALINE PHOSPHATASE 120 U/L (38-126); ANION GAP 8 (5-19); ASPARTATE AMINO TRANSFERASE 28 U/L (17-59); BILIRUBIN,DIRECT 0.2 mg/dL (0.0-0.4); BILIRUBIN,TOTAL 0.4 mg/dL (0.2-1.3); BLOOD UREA NITROGEN 56 mg/dL (7-20); CALCIUM 9.1 mg/dL (8.4-10.2); CARBON DIOXIDE 24 mmol/L (22-30); CHLORIDE 109 mmol/L (98-107); GLUCOSE 86 mg/dL (75-110); POTASSIUM 4.4 mmol/L (3.6-5.0); TOTAL PROTEIN 7.3 g/dL (6.3-8.2)
[2020-10-21 12:29] LABS: ARTERIAL BLOOD BASE EXCESS -2.9 mmol/L; ARTERIAL BLOOD FIO2 ROOM AIR; ARTERIAL BLOOD H2CO3 1.04 mmol/L (1.05-1.35); ARTERIAL BLOOD HCO3 21.3 mmol/L (20-24); ARTERIAL BLOOD PCO2 34.6 mmHg (35-45); ARTERIAL BLOOD PH 7.41 (7.35-7.45); ARTERIAL BLOOD PO2 73.4 mmHg (80-100); ARTERIAL BLOOD TOTAL CO2 22.4 mmol/L (23-27)
[2020-10-21 12:32] LABS: APPEARANCE,URINE CLEAR; BILIRUBIN,URINE NEGATIVE (NEGATIVE); COLOR,URINE STRAW; GLUCOSE, URINE 50 mg/dL (NEGATIVE); KETONES,URINE NEGATIVE (NEGATIVE); LEUKOCYTE ESTERASE,URINE NEGATIVE (NEGATIVE); NITRITE,URINE NEGATIVE (NEGATIVE); PROTEIN,URINE >=500 mg/dL (NEGATIVE); URINE SPECIFIC GRAVITY 1.014; UROBILINOGEN,URINE NEGATIVE mg/dL (<2.0)
[2020-10-21 12:52] LABS: INTERNATIONAL RATION (INR) 0.98; PROTHROMBIN TIME 13.2 SEC (11.4-15.4)
[2020-10-21 12:55] LABS: D-DIMER 1.64 ug/mL (0.00-0.50)
[2020-10-21 14:01] LABS: URINE AMPHETAMINES SCREEN NEGATIVE; URINE BARBITURATES SCREEN NEGATIVE; URINE BENZODIAZEPINES SCREEN NEGATIVE; URINE COCAINE SCREEN NEGATIVE; URINE MARIJUANA (THC) SCREEN NEGATIVE; URINE METHADONE SCREEN NEGATIVE; URINE PHENCYCLIDINE SCREEN NEGATIVE
--- NOTE | 2020-10-21 14:51 | RADIOLOGY REPORT (SQ) ---
EXAM DESCRIPTION: VENOUS UNILATERAL LOWER IMAGES COMPLETED DATE/TIME: 10/21/2020 1:22 pm REASON FOR STUDY: leg edema COMPARISON: None. TECHNIQUE: Dynamic and static brito scale and color images acquired of the right leg venous system. S elected spectral images acquired with additional compression and augmentation maneuvers. The contrala teral common femoral vein and saphenofemoral junction were also imaged. Images stored on PACS. LIMITATIONS: None. FINDINGS: COMMON FEMORAL: Normal phasicity, compression and augmentation. No visualized echogenic ma terial on brito scale. No defects on color images. FEMORAL: Normal compression and augmentation. No visualized echogenic material on brito scale. No defe cts on color images. POPLITEAL: Normal compression, augmentation. No visualized echogenic material on brito scale. No defec ts on color images. CALF VESSELS: Normal compression, augmentation. No visualized echogenic material on brito scale. No de fects on color images. GSV and SSV: Normal compression, augmentation. No visualized echogenic material on brito scale. No def ects on color images. ANY DEEP VENOUS INSUFFICIENCY: Not evaluated. ANY EVIDENCE OF POPLITEAL CYST: No. OTHER: Subcutaneous edema in the right calf. CONTRALATERAL COMMON FEMORAL VEIN AND SAPHENOFEMORAL JUNCTION: Normal phasicity, compression and augmentation. No visualized echogenic material on brito scale. No de fects on color images. IMPRESSION: 1. No DVT or SVT in the right leg. 2. Subcutaneous edema. TECHNICAL DOCUMENTATION: JOB ID: [id number] 2010 [employer]- All Rights Reserved Reading location - IP/workstation name: [email or web address]
[2020-10-21] MEDS ORDERED: NITROGLYCERIN 2% OINTMENT 1 GM PACKET ONE (15:07)
[2020-10-21] MEDS ORDERED: NICARDIPINE HCL RTU, ISO-OS 20 MG/200 ML RTUINJ IV PRN (15:29)
[2020-10-21 15:59] LABS: TROPONIN I 0.052 ng/mL
--- NOTE | 2020-10-21 16:26 | RADIOLOGY REPORT (SQ) ---
EXAM DESCRIPTION: U/S RETROPERITON (RENAL/AORTA) IMAGES COMPLETED DATE/TIME: 10/21/2020 4:10 pm REASON FOR STUDY: acute renal failure COMPARISON: None. TECHNIQUE: Dynamic and static grayscale images acquired of the kidneys and bladder and recorded on P ACS. Additional selected color Doppler and spectral images recorded. LIMITATIONS: None. FINDINGS: RIGHT KIDNEY: Normal size. Normal echogenicity. No solid or suspicious masses. No hydronep hrosis. No calcifications. LEFT KIDNEY: Normal size. Normal echogenicity. No solid or suspicious masses. No hydronephrosis. No calcifications. BLADDER: No masses. OTHER FINDINGS: Incidental note is made of bilateral pleural effusions. IMPRESSION: Normal sonographic appearance of the kidneys and bladder. Incidental finding of bilater al pleural effusions. TECHNICAL DOCUMENTATION: JOB ID: [id number] 2010 [employer]- All Rights Reserved Reading location - IP/workstation name: [email or web address]
--- NOTE | 2020-10-21 18:32 | ER Document Report ---
Entered by CRYS SALMERON SCRIBE 10/21/20 1105 Acting as scribe for:LILLIAM VANN MD ED Respiratory Problem - General Chief Complaint: Shortness Of Breath Stated Complaint: SHORT OF BREATH,LEG SWELLING Time Seen by Provider: 10/21/20 10:19 Mode of Arrival: Ambulatory Information source: Patient Notes: This 50 year old male patient with a history of hypertension, tobacco abuse, type 2 diabetes mellitus, and CHF presents to the ED today with complaints of shortness of breath with associated right lower extremity swelling, cough, and orthopnea for the past x1 week. Patient reports that he is supposed to be taking Lasix, but has not done so. He also notes running out of his blood pressure medications x1 week ago, but states that he has a refill available at the pharmacy. He states that he "always has loss of taste" and reports a prior COVID test that was negative. 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 Denies fever, sore throat, headache, sinus/nasal congestion/discharge, or sick contacts. He did not receive a flu shot this year. His PCP is Dr. Louie. TRAVEL OUTSIDE OF THE [place] 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 Family History: Reviewed & Not Pertinent, DM Patient has suicidal ideation: No Patient has homicidal ideation: No - Past Medical History Cardiac Medical History: Reports: Hx Congestive Heart Failure, Hx Heart Attack, Hx Hypertension Endocrine Medical History: Reports: Hx Diabetes Mellitus Type 2 GI Medical History: Reports: Hx Gastritis, Hx Gastroesophageal Reflux Disease, Hx Ulcer Past Surgical History: Reports: Hx Orthopedic Surgery - left BKA - Immunizations Hx Diphtheria, Pertussis, Tetanus Vaccination: Yes - 2007 Hx Pneumococcal Vaccination: 07/14/14 Review of Systems - Review of Systems Constitutional: See HPI. denies: Fever EENT: See HPI. denies: Nose discharge, Sinus discharge, Throat pain Cardiovascular: See HPI, Orthopnea Respiratory: See HPI, Cough, Short of breath Gastrointestinal: No symptoms reported Genitourinary: No symptoms reported Male Genitourinary: No symptoms reported Musculoskeletal: See HPI, Leg swelling Skin: No symptoms reported Hematologic/Lymphatic: No symptoms reported Neurological/Psychological: See HPI. denies: Headaches -: Yes All other systems reviewed and negative Physical Exam - Vital signs Vitals: Temp Pulse Resp BP Pulse Ox 97.7 F 88 22 H 160/103 H 96 10/21/20 09:22 10/21/20 09:22 10/21/20 09:22 10/21/20 09:22 10/21/20 09:22 - General General appearance: Alert In distress: None - HEENT Head: Normocephalic, Atraumatic Eyes: Normal Pupils: PERRL Neck: Normal, Supple - Respiratory Respiratory status: No respiratory distress, Other - O2 sats were 100% on RA Chest status: Nontender Breath sounds: Decreased air movement - Diminished breath sounds in the bases bilaterally, worse on the left Chest palpation: Normal - Cardiovascular Rhythm: Regular Heart sounds: Normal auscultation, S1 appreciated, S2 appreciated Murmur: No Friction rub: No Gallop: None auscultated - Abdominal Inspection: Normal Distension: No distension Bowel sounds: Normal Tenderness: Nontender - Abdomen soft Organomegaly: No organomegaly - Back Back: Normal, Nontender - Extremities General lower extremity: Edema - Nonpitting edema to the thigh and below the knee of the right lower leg, Other - Left BKA with prosthetic attachment Calf: Normal, Nontender - Neurological Neuro grossly intact: Yes Orientation: AAOx4 [place] Coma Scale Eye Opening: Spontaneous Sadie Coma Scale Verbal: Oriented Sadie Coma Scale Motor: Obeys Commands [place] Coma Scale Total: 15 - Psychological Associated symptoms: Normal affect, Normal mood - Skin Skin Temperature: Warm Skin Moisture: Dry Skin Color: Normal Course - Re-evaluation Re-evalutation: Patient waiting for test results and disposition determination whether or not he needs to be transferred. 10/21/20 18:[address] Louie, patient's primary physician. Explained that patient has gone into acute renal failure due to medical noncompliance on blood pressure medications. Plan is to admit patient to the [facility] on a nitroglycerin drip for blood pressure management and correct patient's acute kidney injury. - Vital Signs Vital signs: Temp Pulse Resp BP Pulse Ox 97.7 F 88 22 H 186/108 H 96 10/21/20 09:22 10/21/20 09:22 10/21/20 18:16 10/21/20 18:16 10/21/20 18:16 10/21/20 16:49 Vital signs shows a blood pressure 159/96 . - Laboratory Results Result Diagrams: 10/21/20 10:55 10/21/20 10:55 Laboratory Results Interpreted: 10/21/20 10/21/20 10/21/20 10:55 10:55 10:55 RBC 3.78 L Hgb 10.9 L Hct 32.8 L D-Dimer 1.64 H Carbonic Acid ABG pCO2 ABG pO2 ABG Total CO2 Chloride 109 H BUN 56 H Creatinine 5.36 H Est GFR ( Amer) 14 L Est GFR (MDRD) Non-Af 11 L NT-Pro-B Natriuret Pep Albumin 3.3 L Urine Protein Urine Glucose (UA) 10/21/20 10/21/20 10/21/20 11:58 11:58 14:57 RBC Hgb Hct D-Dimer Carbonic Acid 1.04 L ABG pCO2 34.6 L ABG pO2 73.4 L ABG Total CO2 22.4 L Chloride BUN Creatinine Est GFR ( Amer) Est GFR (MDRD) Non-Af NT-Pro-B Natriuret Pep 95285 H Albumin Urine Protein >=500 H Urine Glucose (UA) 50 H Critical Laboratory Results Reviewed: Yes Attending or Supervising Physician who Reviewed Labs: LILLIAM VANN - Renal failure - Radiology Results Radiology Results Interpreted: 10/21/20 16:44 Chest X-Ray 10/21/20 10:25 IMPRESSION: Constellation of findings are nonspecific. Differential considerations include pulmonary edema and/or infectious process. Venous Doppler Study 10/21/20 11:51 IMPRESSION: 1. No DVT or SVT in the right leg. 2. Subcutaneous edema. Renal Ultrasound 10/21/20 13:36 IMPRESSION: Normal sonographic appearance of the kidneys and bladder. Incidental finding of bilateral pleural effusions. 10/21/20 16:52 Chest x-ray showing pulmonary edema venous Doppler studies subcutaneous edema in the right lower leg no DVT or SVT. Renal ultrasound shows normal sonographic appearance of kidneys and bladder incidental finding is bilateral pleural effusions. Critical Radiology Results Reviewed: Yes Attending or Supervising Physician who Reviewed Radiology: LILLIAM VANN - EKG Interpretation by Me Additional EKG results interpreted by me: 10/21/20 16:53 Artifact influence the computer reading is A. fib I disagree patient has a normal sinus rhythm rate of 85 normal axis indeterminate TN interval due to artifact QRS within normal range QT interval slightly prolonged no acute STEMI - Consults Dr. Louie Time consulted: 18:24 Discharge - Discharge Clinical Impression: Accelerated hypertension, Acute kidney injury, Peripheral edema, Elevated troponin Condition: Fair Disposition: ADMITTED INPATIENT Admitting Provider: Liban Unit Admitted: [facility] I personally performed the services described in the documentation, reviewed and edited the documentation which was dictated to the scribe in my presence, and it accurately records my words and actions.
--- NOTE | 2020-10-21 22:08 | EKG REPORT ---
SEVERITY:- DEFECTIVE ECG - SINUS RHYTHM BASELINE ARTEFACTS : Confirmed by: Jaleel Briceno MD 21-Oct-2020 22:07:47
[2020-10-21] MEDS ORDERED: DEXTROSE 50%-WATER SYRINGE 12.5 GM/25 ML DOSE IV PRN (23:00)
[2020-10-21] MEDS ORDERED: AMLODIPINE BESYLATE 5 MG TABLET PO ONE (23:00)
[2020-10-21] MEDS ORDERED: DEXTROSE 50%-WATER SYRINGE 25 GM/50 ML DOSE IV PRN (23:00)
[2020-10-21] MEDS ORDERED: DEXTROSE 40% GEL 15 GM TUBE X 2 PO PRN (23:00)
[2020-10-21] MEDS ORDERED: DEXTROSE 40% GEL 15 GM TUBE PO PRN (23:00)
[2020-10-21] MEDS ORDERED: GLUCAGON,HUMAN RECOMB 1 MG INJ IM PRN (23:00)
[2020-10-21] MEDS ORDERED: PANTOPRAZOLE SODIUM 40 MG TABLET.DR PO ONE (23:45)
[2020-10-21] MEDS ORDERED: INSULIN LISPRO 100 UNIT/ML 3 ML VIAL SUBCUT ONE (23:45)
[2020-10-22] MEDS: HEPARIN SOD (PORCINE) 5,000 UNIT/ML 1 ML VIAL SUBCUT SCH ×3 (05:49→23:00)
[2020-10-22] MEDS ORDERED: INFLUENZA QUAD (6MOS+) 2020-21 VAC 0.5 ML SYR IM ONE (08:00)
[2020-10-22] MEDS: INSULIN LISPRO 100 UNIT/ML 3 ML VIAL SUBCUT SCH ×4 (08:22→22:59)
[2020-10-22] MEDS: AMLODIPINE BESYLATE 5 MG TABLET PO SCH ×2 (09:42→23:00)
[2020-10-22] MEDS ORDERED: FUROSEMIDE INJ/PF 40 MG/4 ML SDV IV ONE (13:20)
--- NOTE | 2020-10-22 13:39 | PDOC H&P ---
History of Present Illness Admission Date/PCP: 10/21/20 18:44 SALOMON MARILEE Patient complains of: Difficulty with breathing, leg swelling History of Present Illness: DEB CUADRA is a 50 year old male patient known to my practice who presented to the ED with complain about worsening shortness of breath and concern about possible Blood virus infection. 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 He reported development of shortness of breath and significant coughing at night when he lay down. Patient reported associated leg swelling. He denied any associated chest pain or palpitation. He claimed compliance with his medication and dietary restrictions although he has been out of his blood pressure medication for about 1 week. He denied any fever, chills, nausea. vomiting, or abdominal pain. No flank pain, hematuria or dysuria. He reported decrease urine out put in the last several days. His initial evaluation in the ED was significant for negative COVID-19 test, worsening renal indices, elevated NT-Pro BNP level, bilateral pleural effusion with bibasilar atelectasis versus consolidation. He was advised hospitalization for further evaluation and management. His morbidities are as listed below. Past Medical History Cardiac Medical History: Reports: Congestive Heart Failure, Myocardial Infarction, Hypertension Denies: Coronary Artery Disease Pulmonary Medical History: Denies: Asthma, Bronchitis, Chronic Obstructive Pulmonary Disease (COPD), Pneumonia Neurological Medical History: Denies: Seizures Endocrine Medical History: Reports: Diabetes Mellitus Type 1, Diabetes Mellitus Type 2 GI Medical History: Reports: Gastroesophageal Reflux Disease Denies: Hiatal Hernia Musculoskeltal Medical History: Denies: Arthritis Psychiatric Medical History: Denies: Depression Hematology: Denies: Anemia Past Surgical History Past Surgical History: Reports: Orthopedic Surgery - left BKA, Other - left BKA Social History Smoking Status: Current Every Day Smoker Frequency of Alcohol Use: Rare Hx Recreational Drug Use: No Drugs: None Hx Prescription Drug Abuse: No - Advance Directive Resuscitation Status: Full Code Family History Family History: Reviewed & Not Pertinent, DM Parental Family History Reviewed: Yes Children Family History Reviewed: Yes Sibling(s) Family History Reviewed.: Yes Medication/Allergy Home Medications: Aspirin [Ecotrin 81 mg EC Tablet] 81 mg PO DAILY #90 tabec 04/06/20 Atorvastatin Calcium [Lipitor 20 mg Tablet] 20 mg PO QHS #30 tablet 04/06/20 Carvedilol 25 mg PO BID #60 tablet 04/06/20 Furosemide [Lasix 40 mg Tablet] 40 mg PO QAM #30 tablet 04/06/20 Glipizide [Glucotrol 5 mg Tablet] 5 mg PO DAILY #90 tablet 04/06/20 Hydralazine HCl [Apresoline 50 mg Tablet] 50 mg PO Q8 #90 tablet 04/06/20 Isosorbide Dinitrate [Isordil Titradose 20 mg Tablet] 20 mg PO Q8 #90 tablet 04/06/20 Allergies/Adverse Reactions: promethazine HCl [From Phenergan] Adverse Reaction (Verified 10/29/18 09:02) Review of Systems Constitutional: ABSENT: chills, fever(s), headache(s) Eyes: ABSENT: visual disturbances Ears: ABSENT: hearing changes Nose, Mouth, and Throat: ABSENT: headache(s), sore throat, vertigo Cardiovascular: PRESENT: dyspnea on exertion, edema, orthropnea. ABSENT: chest pain, palpitations Respiratory: PRESENT: cough, dyspnea. ABSENT: hemoptysis Gastrointestinal: ABSENT: abdominal pain, constipation, diarrhea, hematemesis, hematochezia, nausea, vomiting Genitourinary: ABSENT: dysuria, hematuria Musculoskeletal: ABSENT: joint swelling Integumentary: ABSENT: rash, wounds Neurological: ABSENT: abnormal gait, abnormal speech, confusion, dizziness, focal weakness, syncope Psychiatric: ABSENT: anxiety, depression, homidical ideation, suicidal ideation Endocrine: ABSENT: cold intolerance, heat intolerance, polydipsia, polyuria Hematologic/Lymphatic: ABSENT: easy bleeding, easy bruising, lymphadenopathy Allergic/Immunologic: ABSENT: seasonal rhinorrhea Physical Exam Vital Signs: Temp Pulse Resp BP Pulse Ox 97.6 F 86 19 157/92 H 96 10/21/20 21:17 10/21/20 21:17 10/21/20 21:17 10/21/20 21:17 10/21/20 21:17 Intake & Output 10/20/20 10/21/20 10/22/20 06:59 06:59 06:59 Output Total 1180 Balance -1180 Weight 84.4 kg General appearance: PRESENT: no acute distress Head exam: PRESENT: atraumatic, normocephalic Eye exam: PRESENT: conjunctiva pink, EOMI, PERRLA. ABSENT: scleral icterus Ear exam: PRESENT: normal external ear exam Mouth exam: PRESENT: moist, tongue midline Neck exam: PRESENT: full ROM. ABSENT: carotid bruit, JVD, lymphadenopathy, thyromegaly Respiratory exam: PRESENT: clear to auscultation crystal, decreased breath sounds - at lung bases Cardiovascular exam: PRESENT: RRR, +S1, +S2. ABSENT: diastolic murmur, rubs, systolic murmur Vascular exam: PRESENT: normal capillary refill. ABSENT: pallor GI/Abdominal exam: PRESENT: normal bowel sounds, soft. ABSENT: distended, guarding, mass, organolmegaly, rebound, tenderness Rectal exam: PRESENT: deferred Extremities exam: PRESENT: left BKA, pedal edema - 2+ pitting edema Neurological exam: PRESENT: alert, awake, oriented to person, oriented to place, oriented to time, oriented to situation, CN II-XII grossly intact. ABSENT: mo tor sensory deficit Psychiatric exam: PRESENT: appropriate affect, normal mood. ABSENT: homicidal ideation, suicidal ideation Skin exam: PRESENT: dry, intact, warm. ABSENT: cyanosis, rash Results Laboratory Results: 10/21/20 10:55 10/21/20 10:55 10/21/20 10/21/20 10/21/20 10:55 10:55 11:58 WBC 8.6 RBC 3.78 L Hgb 10.9 L Hct 32.8 L MCV 87 MCH 28.8 MCHC 33.1 RDW 13.1 Plt Count 302 Seg Neutrophils % 76.3 Carbonic Acid 1.04 L HCO3/H2CO3 Ratio 20:1 ABG pH 7.41 ABG pCO2 34.6 L ABG pO2 73.4 L ABG HCO3 21.3 ABG O2 Saturation 95.0 ABG Base Excess -2.9 FiO2 ROOM AIR Sodium 140.8 Potassium 4.4 Chloride 109 H Carbon Dioxide 24 Anion Gap 8 BUN 56 H Creatinine 5.36 H Est GFR ( Amer) 14 L Glucose 86 Calcium 9.1 Total Bilirubin 0.4 AST 28 Alkaline Phosphatase 120 Total Protein 7.3 Albumin 3.3 L Urine Color Urine Appearance Urine pH Ur Specific [place] Urine Protein Urine Glucose (UA) Urine Ketones Urine Blood Urine Nitrite Ur Leukocyte Esterase Urine WBC (Auto) Urine RBC (Auto) 10/21/20 11:58 WBC RBC Hgb Hct MCV MCH MCHC RDW Plt Count Seg Neutrophils % Carbonic Acid HCO3/H2CO3 Ratio ABG pH ABG pCO2 ABG pO2 ABG HCO3 ABG O2 Saturation ABG Base Excess FiO2 Sodium Potassium Chloride Carbon Dioxide Anion Gap BUN Creatinine Est GFR ( Amer) Glucose Calcium Total Bilirubin AST Alkaline Phosphatase Total Protein Albumin Urine Color STRAW Urine Appearance CLEAR Urine pH 7.0 Ur Specific [place] 1.014 Urine Protein >=500 H Urine Glucose (UA) 50 H Urine Ketones NEGATIVE Urine Blood NEGATIVE Urine Nitrite NEGATIVE Ur Leukocyte Esterase NEGATIVE Urine WBC (Auto) 0 Urine RBC (Auto) 5 10/21/20 10/21/20 10:55 14:57 Troponin I 0.049 0.052 NT-Pro-B Natriuret Pep 74890 H Impressions: Chest X-Ray 10/21/20 10:25 IMPRESSION: Constellation of findings are nonspecific. Differential considerations include pulmonary edema and/or infectious process. Venous Doppler Study 10/21/20 11:51 IMPRESSION: 1. No DVT or SVT in the right leg. 2. Subcutaneous edema. Renal Ultrasound 10/21/20 13:36 IMPRESSION: Normal sonographic appearance of the kidneys and bladder. Incidental finding of bilateral pleural effusions. Assessment & Plan - Diagnosis (1) Hypertensive urgency Is this a current diagnosis for this admission?: Yes Plan: See admitting attending physician orders for details about care plan. (2) Acute on chronic systolic (congestive) heart failure Is this a current diagnosis for this admission?: Yes Plan: See admitting attending physician orders for details about care plan. (3) Acute renal failure superimposed on stage 5 chronic kidney disease, not on chronic dialysis Qualifiers: Acute renal failure type: unspecified Qualified Code(s): N17.9 - Acute kidney failure, unspecified; N18.5 - Chronic kidney disease, stage 5 Is this a current diagnosis for this admission?: Yes Plan: See admitting attending physician orders for details about care plan. (4) Diabetes mellitus type 2 in nonobese Is this a current diagnosis for this admission?: Yes Plan: See admitting attending physician orders for details about care plan. (5) HTN (hypertension) Qualifiers: Hypertension type: essential hypertension Qualified Code(s): I10 - Essential (primary) hypertension Is this a current diagnosis for this admission?: Yes Plan: See admitting attending physician orders for details about care plan. (6) Status post below knee amputation of left lower extremity Is this a current diagnosis for this admission?: Yes Plan: See admitting attending physician orders for details about care plan. - Time Time Spent: 50 to 70 Minutes Medications reviewed and adjusted accordingly: Yes Anticipated Discharge Disposition: Home with Home Health Anticipated Discharge Timeframe: within 72 hours - Inpatient Certification Based on my medical assessment, after consideration of the patient's c omorbidities, presenting symptoms, or acuity I expect that the services needed warrant INPATIENT care.: Yes I certify that my determination is in accordance with my understanding of Medicare's requirements for reasonable and necessary INPATIENT services [42 CFR 412.3e].: Yes Medical Necessity: Significant Comorbidiites Make Outpatient Treatment Too Risky, Need Close Monitoring Due to Risk of Patient Decompensation, Need For Continuous Telemetry Monitoring, Risk of Complication if Not Cared For in Hospital, Risk of Diagnosis Which Will Require Inpatient Eval/Care/Monitoring 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
--- NOTE | 2020-10-22 13:48 | PDOC PROGRESS REPORT ---
Subjective Date:: 10/22/20 Subjective:: Patient reported some improvement in his breathing and leg swelling. His urine o utput is responsive to IV Lasix therapy ad blood pressure has improved. He denied any chest pain, palpitation. No abdominal pain, nausea or vomiting. No fever or chills. Reason For Visit: HYPERTENSIVE URGENCY; ACUTE ON CHRONIC KIDNEY DIS- Physical Exam Vital Signs: Temp Pulse Resp BP Pulse Ox 97.8 F 84 20 153/89 H 100 10/22/20 11:48 10/22/20 11:48 10/22/20 11:48 10/22/20 11:48 10/22/20 11:48 Intake & Output 10/21/20 10/22/20 10/23/20 06:59 06:59 06:59 Intake Total 200 Output Total 1180 Balance -980 Weight 80.9 kg General appearance: PRESENT: no acute distress Head exam: PRESENT: atraumatic, normocephalic Eye exam: PRESENT: conjunctiva pink. ABSENT: scleral icterus Mouth exam: PRESENT: moist Neck exam: ABSENT: JVD Respiratory exam: PRESENT: clear to auscultation crystal, decreased breath sounds - at lung bases Cardiovascular exam: PRESENT: RRR, +S1, +S2. ABSENT: diastolic murmur, rubs, systolic murmur Vascular exam: ABSENT: pallor GI/Abdominal exam: PRESENT: normal bowel sounds, soft. ABSENT: tenderness Extremities exam: PRESENT: left BKA, pedal edema Neurological exam: PRESENT: alert, awake Skin exam: PRESENT: dry, warm Results Laboratory Results: 10/21/20 10:55 10/21/20 10:55 10/21/20 10/21/20 10:55 14:57 Troponin I 0.049 0.052 NT-Pro-B Natriuret Pep 06996 H Impressions: Chest X-Ray 10/21/20 10:25 IMPRESSION: Constellation of findings are nonspecific. Differential considerations include pulmonary edema and/or infectious process. Venous Doppler Study 10/21/20 11:51 IMPRESSION: 1. No DVT or SVT in the right leg. 2. Subcutaneous edema. Renal Ultrasound 10/21/20 13:36 IMPRESSION: Normal sonographic appearance of the kidneys and bladder. Incidental finding of bilateral pleural effusions. Assessment & Plan - Diagnosis (1) Hypertensive urgency Is this a current diagnosis for this admission?: Yes (2) Acute on chronic systolic (congestive) heart failure Is this a current diagnosis for this admission?: Yes (3) Acute renal failure superimposed on stage 5 chronic kidney disease, not on chronic dialysis Qualifiers: Acute renal failure type: unspecified Qualified Code(s): N17.9 - Acute ki dney failure, unspecified; N18.5 - Chronic kidney disease, stage 5 Is this a current diagnosis for this admission?: Yes (4) Diabetes mellitus type 2 in nonobese Is this a current diagnosis for this admission?: Yes (5) HTN (hypertension) Qualifiers: Hypertension type: essential hypertension Qualified Code(s): I10 - Essential (primary) hypertension Is this a current diagnosis for this admission?: Yes (6) Status post below knee amputation of left lower extremity Is this a current diagnosis for this admission?: Yes - Time Time Spent with patient: 25-34 minutes Level of Care: IMCU Medications reviewed and adjusted accordingly: Yes Anticipated discharge: Home with Homehealth Anticipated DC Timeframe: within 72 hours - Inpatient Certification Based on my medical assessment, after consideration of the patient's com orbidities, presenting symptoms, or acuity I expect that the services needed warrant INPATIENT care.: Yes I certify that my determination is in accordance with my understanding of Medicare's requirements for reasonable and necessary INPATIENT services [42 CFR 412.3e].: Yes Medical Necessity: Significant Comorbidiites Make Outpatient Treatment Too Risky, Need Close Monitoring Due to Risk of Patient Decompensation, Need For Continuous Telemetry Monitoring, Risk of Complication if Not Cared For in Hospital, Risk of Diagnosis Which Will Require Inpatient Eval/Care/Monitoring 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 Increase Amlodipine to 5 mg po [id number]. Administer IV Lasix 40 mg x 1 dose. Follow up on nephrology consultation. Obtain echocardiogram.
[2020-10-23 05:59] LABS: ABSOLUTE BASOPHILS # (AUTO) 0.1 10^3/uL (0.0-0.2); ABSOLUTE EOSINOPHILS # (AUTO) 0.2 10^3/uL (0.0-0.6); ABSOLUTE LYMPHOCYTES (AUTO) 1.5 10^3/uL (0.5-4.7); ABSOLUTE MONOCYTES (AUTO) 0.4 10^3/uL (0.1-1.4); ABSOLUTE NEUT (AUTO) 5.2 10^3/uL (1.7-8.2); BASOPHILS % (AUTO) 1.1 % (0-2); EOSINOPHILS % (AUTO) 2.7 % (0-6); HEMATOCRIT 28.8 % (37.9-51.0); HEMOGLOBIN 9.9 g/dL (13.5-17.0); LYMPHOCYTES % (AUTO) 20.3 % (13-45); MEAN CORPUSCULAR HEMOGLOBIN 29.2 pg (27.0-33.4); MEAN CORPUSCULAR HGB CONC 34.3 g/dL (32.0-36.0); MEAN CORPUSCULAR VOLUME 85 fl (80-97); MONOCYTES % (AUTO) 5.5 % (3-13); PLATELET COUNT 272 10^3/uL (150-450); RED BLOOD COUNT 3.38 10^6/uL (4.35-5.55); RED CELL DISTRIBUTION WIDTH 12.9 % (11.5-14.0); SEGMENTED NEUTROPHILS % (AUTO) 70.4 % (42-78); TOTAL CELLS COUNTED % (AUTO) 100 %; WHITE BLOOD COUNT 7.3 10^3/uL (4.0-10.5)
[2020-10-23 06:18] LABS: ALBUMIN 2.8 g/dL (3.5-5.0); ALKALINE PHOSPHATASE 114 U/L (38-126); ANION GAP 8 (5-19); ASPARTATE AMINO TRANSFERASE 21 U/L (17-59); BILIRUBIN,DIRECT 0.2 mg/dL (0.0-0.4); BILIRUBIN,TOTAL 0.3 mg/dL (0.2-1.3); BLOOD UREA NITROGEN 58 mg/dL (7-20); CALCIUM 8.7 mg/dL (8.4-10.2); CARBON DIOXIDE 25 mmol/L (22-30); CHLORIDE 106 mmol/L (98-107); CHOLESTEROL 208.49 mg/dL (0-200); GLUCOSE 132 mg/dL (75-110); POTASSIUM 4.2 mmol/L (3.6-5.0); TOTAL PROTEIN 6.4 g/dL (6.3-8.2); TRIGLYCERIDES 126 mg/dL (<150)
[2020-10-23 06:29] LABS: DIRECT LDL 109 mg/dL (<100)
[2020-10-23] MEDS: HEPARIN SOD (PORCINE) 5,000 UNIT/ML 1 ML VIAL SUBCUT SCH ×3 (06:36→22:28)
[2020-10-23] MEDS: PANTOPRAZOLE SODIUM 40 MG TABLET.DR PO SCH (06:36)
[2020-10-23] MEDS: INSULIN LISPRO 100 UNIT/ML 3 ML VIAL SUBCUT SCH ×4 (09:28→22:29)
[2020-10-23] MEDS: AMLODIPINE BESYLATE 5 MG TABLET PO SCH ×2 (10:20→22:29)
[2020-10-23] MEDS ORDERED: GLIPIZIDE 5 MG TABLET PO SCH (10:30)
[2020-10-23] MEDS ORDERED: NORMAL SALINE 1000 ML 1,000 ML IV PRN (11:27)
[2020-10-23] MEDS: CARVEDILOL 12.5 MG TABLET PO SCH ×2 (12:06→22:29)
--- NOTE | 2020-10-23 12:31 | PDOC CONSULTATION ---
Consultation Consult Date: 10/23/20 Provider Consulted: Elina NELSON Consult reason:: FABIOLA History of Present Illness Admission Date/PCP: 10/21/20 18:44 SALOMON HUNT History of Present Illness: DEB CUADRA is a 50 year old male with a past medical history of diabetes mellitus for at least 10 years with history of peripheral neuropathy and possible CKD as apparent baseline creatinine is around 2, hypertension, history of severe noncompliance with diet and medications especially antihypertensives was admitted with history of progressive shortness of breath and swelling of his right leg. He underwent a left BKA approx 4 years ago and has now got a prosthetic left leg. 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 However it got worse enough and then following Crow he came to the ER where he was diagnosed with congestive heart failure after being ruled out for Covid and admitted. Patient currently feels a whole lot better after having been given IV Lasix with good diuresis and hardly any more swelling of his leg and the shortness of breath and orthopnea has since resolved. At no time does he give any history of fever or chills, chest pains. Labs and medications were reviewed. He admits to severe noncompliance with his antihypertensives. Denies any history of obstructive symptoms. No symptoms of any GI bleeds. He denies mauro ng on any NSAIDs. Fortunately his A1c is 5.2 even though he admits to not being on a proper renal or diabetic diet. Past Medical History Cardiac Medical History: Reports: Hypertension-primary, Myocardial Infarction Denies: Coronary Artery Disease Pulmonary Medical History: Denies: Asthma, Bronchitis, Chronic Obstructive Pulmonary Disease (COPD), Pneumonia Neurological Medical History: Denies: Seizures Endocrine Medical History: Reports: Diabetes Mellitus Type 2 Renal/ Medical History: Reports: Chronic Kidney Disease Stage III GI Medical History: Reports: Gastroesophageal Reflux Disease Denies: Hiatal Hernia Musculoskeltal Medical History: Denies: Arthritis Psychiatric Medical History: Denies: Depression Past Surgical History Past Surgical History: Reports: Orthopedic Surgery - left BKA, Other - left BKA Social History Smoking Status: Current Every Day Smoker Cigarettes Packs Per Day: 0.5 Last Time Smoked: 12/26/20 Frequency of Alcohol Use: Rare Hx Recreational Drug Use: No Drugs: None Hx Prescription Drug Abuse: No - Advance Directive Resuscitation Status: Full Code Family History Parental Family History Reviewed: Yes - Negative for ESRD Children Family History Reviewed: Yes - Negative for ESRD Sibling(s) Family History Reviewed.: Yes - Negative for ESRD Medication/Allergy Home Medications: Carvedilol 25 mg PO BID #60 tablet 04/06/20 Furosemide [Lasix 40 mg Tablet] 40 mg PO QAM #30 tablet 04/06/20 Glipizide [Glucotrol 5 mg Tablet] 5 mg PO DAILY #90 tablet 04/06/20 Isosorbide Dinitrate [Isordil Titradose 20 mg Tablet] 20 mg PO Q8 #90 tablet 0 04/06/20 Allergies/Adverse Reactions: promethazine HCl [From Phenergan] Adverse Reaction (Verified 10/29/18 09:02) Review of Systems Constitutional: ABSENT: anorexia, chills, fatigue, fever(s), headache(s), night sweats, weakness Nose, Mouth, and Throat: ABSENT: mouth pain, sore throat Cardiovascular: PRESENT: dyspnea on exertion, edema, orthropnea. ABSENT: chest pain, palpitations Respiratory: ABSENT: dyspnea, hemoptysis Gastrointestinal: ABSENT: abdominal pain, constipation, diarrhea, dysphagia, hematemesis, nausea, vomiting Genitourinary: ABSENT: difficulty urinating, dysuria, hematuria Musculoskeletal: ABSENT: deformity, joint swelling Integumentary: ABSENT: lesions, pruritus, rash Neurological: ABSENT: abnormal movements, abnormal speech, confusion, focal weakness Endocrine: ABSENT: heat intolerance Hematologic/Lymphatic: ABSENT: easy bruising Physical Exam Vital Signs: Temp Pulse Resp BP Pulse Ox 97.8 F 80 16 164/89 H 100 10/23/20 11:12 10/23/20 11:12 10/23/20 11:12 10/23/20 11:12 10/23/20 11:12 Intake & Output 10/22/20 10/23/20 10/24/20 06:59 06:59 06:59 Intake Total 200 870 Output Total 1180 600 Balance -980 270 Weight 80.9 kg 82.8 kg General appearance: PRESENT: no acute distress Eye exam: PRESENT: EOMI, PERRLA. ABSENT: scleral icterus Ear exam: PRESENT: normal external ear exam Mouth exam: PRESENT: neck supple. ABSENT: moist Neck exam: ABSENT: lymphadenopathy, meningismus, tenderness, thyromegaly, tra cheal deviation Respiratory exam: PRESENT: clear to auscultation crystal, decreased breath sounds. ABSENT: crackles Cardiovascular exam: PRESENT: +S1, +S2 GI/Abdominal exam: PRESENT: normal bowel sounds, soft. ABSENT: organomegaly, tenderness Extremities exam: PRESENT: other - Prosthetic left leg.. ABSENT: pedal edema Neurological exam: PRESENT: alert, awake, oriented to person, oriented to place Psychiatric exam: PRESENT: appropriate affect Skin exam: PRESENT: dry. ABSENT: erythema, mottled, rash Results Laboratory Results: 10/23/20 05:26 10/23/20 05:26 10/23/20 10/23/20 05:26 05:26 WBC 7.3 RBC 3.38 L Hgb 9.9 L Hct 28.8 L MCV 85 MCH 29.2 MCHC 34.3 RDW 12.9 Plt Count 272 Seg Neutrophils % 70.4 Sodium 139.2 Potassium 4.2 Chloride 106 Carbon Dioxide 25 Anion Gap 8 BUN 58 H Creatinine 5.47 H Est GFR ( Amer) 13 L Glucose 132 H Calcium 8.7 Total Bilirubin 0.3 AST 21 Alkaline Phosphatase 114 Total Protein 6.4 Albumin 2.8 L Triglycerides 126 Cholesterol 208.49 H LDL Cholesterol Direct 109 H VLDL Cholesterol 25.0 HDL Cholesterol 52 10/21/20 10/21/20 10:55 14:57 Troponin I 0.049 0.052 NT-Pro-B Natriuret Pep [id number] H Impressions: Chest X-Ray 10/21/20 10:25 IMPRESSION: Constellation of findings are nonspecific. Differential considerations include pulmonary edema and/or infectious process. Venous Doppler Study 10/21/20 11:51 IMPRESSION: 1. No DVT or SVT in the right leg. 2. Subcutaneous edema. Renal Ultrasound 10/21/20 13:36 IMPRESSION: Normal sonographic appearance of the kidneys and bladder. Incidental finding of bilateral pleural effusions. Assessment & Plan - Diagnosis (1) Acute kidney injury Plan: Nonoliguric. Patient has got underlying possible diabetic/nephritic kidney disease with base creatinine of around 2 as of labs done in March 2020 with proteinuria now coming in with rising creatinine in the face of prerenal congestive heart failure. Current creatinine is 5.4. Patient's heart failure has been corrected and the ultrasound does not show any obstructive uropathy. However his current status looks like he is dehydrated. He is currently not on any diuretics. We will start him on gentle hydration and once his creatinine trends better , then hopefully he can be discharged home and follow-up as an outpatient in 2 weeks time with labs as patient eager to go home. Currently no acute indications for renal replacements but if he continues on this worsening trend he might ultimately reach their quickly. Advised patient he should be compliant with his antihypertensives. Fortunately blood sugar looks under good control though he has not been watching his diet with his A1c at 5.2. (2) Proteinuria Plan: Looks like patient has got nephrotic proteinuria. Initiate work-up. (3) Acute on chronic systolic (congestive) heart failure Is this a current diagnosis for this admission?: Yes Plan: Currently resolved. Echo pending. Likely hypertensive heart disease. (4) Anemia Qualifiers: Anemia type: unspecified type Qualified Code(s): D64.9 - Anemia, unspecified Plan: Initiate work-up. (5) Diabetes mellitus type 2 in nonobese Is this a current diagnosis for this admission?: Yes Plan: A1c done in the hospital was 5.2. (6) HTN (hypertension) Qualifiers: Hypertension type: essential hypertension Qualified Code(s): I10 - Essential (primary) hypertension Is this a current diagnosis for this admission?: Yes Plan: Was uncontrolled and now improving. Continue current guidelines. Discussed with patient about compliance with antihypertensives. (7) Noncompliance Plan: Advised on consequences if he cannot keep his blood sugars and blood pressure under tight control for obvious reasons.
[2020-10-23 13:02] LABS: URINE CREATININE 79.8 mg/dL (22-328)
[2020-10-23 14:35] LABS: UR PRO/CREAT RATIO RESULT 8.3 mg/mg (0.0-0.2); URINE PROTEIN 665.1 mg/dL (<12)
[2020-10-23] MEDS: HYDRALAZINE HCL 25 MG TABLET PO SCH ×2 (15:27→22:28)
[2020-10-23] MEDS: ISOSORBIDE DINITRATE 20 MG TABLET PO SCH ×2 (15:27→22:28)
[2020-10-23] MEDS ORDERED: (PENDING PHARMACY ID) (Carvedilol [Carvedilol] 25 MG Tablet) PO SCH (18:00)
--- NOTE | 2020-10-23 19:54 | PDOC PROGRESS REPORT ---
Subjective Date:: 10/23/20 Subjective:: Patient denied any chest pain, palpitation, ort difficulty with breathing. No ab dominal pain, nausea or vomiting. No fever or chills. Reason For Visit: HYPERTENSIVE URGENCY; ACUTE ON CHRONIC KIDNEY DIS- Physical Exam Vital Signs: Temp Pulse Resp BP Pulse Ox 98.4 F 80 16 149/83 H 94 10/23/20 07:26 10/23/20 07:26 10/23/20 07:26 10/23/20 07:26 10/23/20 07:26 Intake & Output 10/22/20 10/23/20 10/24/20 06:59 06:59 06:59 Intake Total 200 870 Output Total 1180 600 Balance -980 270 Weight 80.9 kg 82.8 kg Physical Exam: General appearance: PRESENT: no acute distress Head exam: PRESENT: atraumatic, normocephalic Eye exam: PRESENT: conjunctiva pink. ABSENT: pallor, scleral-icterus Mouth exam: PRESENT: moist Neck exam: ABSENT: JVD Respiratory exam: PRESENT: clear to auscultation crystal, decreased breath sounds - at lung bases Cardiovascular exam: PRESENT: RRR, +S1, +S2. ABSENT: diastolic murmur, rubs, systolic murmur GI/Abdominal exam: PRESENT: normal bowel sounds, soft. ABSENT: tenderness Extremities exam: PRESENT: left BKA, pedal edema Neurological exam: PRESENT: alert, awake Skin exam: PRESENT: dry, warm Results Laboratory Results: 10/23/20 05:26 10/23/20 05:26 10/23/20 10/23/20 05:26 05:26 WBC 7.3 RBC 3.38 L Hgb 9.9 L Hct 28.8 L MCV 85 MCH 29.2 MCHC 34.3 RDW 12.9 Plt Count 272 Seg Neutrophils % 70.4 Sodium 139.2 Potassium 4.2 Chloride 106 Carbon Dioxide 25 Anion Gap 8 BUN 58 H Creatinine 5.47 H Est GFR ( Amer) 13 L Glucose 132 H Calcium 8.7 Total Bilirubin 0.3 AST 21 Alkaline Phosphatase 114 Total Protein 6.4 Albumin 2.8 L Triglycerides 126 Cholesterol 208.49 H LDL Cholesterol Direct 109 H VLDL Cholesterol 25.0 HDL Cholesterol 52 10/21/20 10/21/20 10:55 14:57 Troponin I 0.049 0.052 NT-Pro-B Natriuret Pep [id number] H Impressions: Chest X-Ray 10/21/20 10:25 IMPRESSION: Constellation of findings are nonspecific. Differential considerations include pulmonary edema and/or infectious process. Venous Doppler Study 10/21/20 11:51 IMPRESSION: 1. No DVT or SVT in the right leg. 2. Subcutaneous edema. Renal Ultrasound 10/21/20 13:36 IMPRESSION: Normal sonographic appearance of the kidneys and bladder. Incidental finding of bilateral pleural effusions. Assessment & Plan - Diagnosis (1) Hypertensive urgency Is this a current diagnosis for this admission?: Yes (2) Acute on chronic systolic (congestive) heart failure Is this a current diagnosis for this admission?: Yes (3) Acute renal failure superimposed on stage 5 chronic kidney disease, not on chronic dialysis Qualifiers: Acute renal failure type: unspecified Qualified Code(s): N17.9 - Acute kidney failure, unspecified; N18.5 - Chronic kidney disease, stage 5 Is this a current diagnosis for this admission?: Yes (4) Diabetes mellitus type 2 in nonobese Is this a current diagnosis for this admission?: Yes (5) HTN (hypertension) Qualifiers: Hypertension type: essential hypertension Qualified Code(s): I10 - Essential (primary) hypertension Is this a current diagnosis for this admission?: Yes (6) Status post below knee amputation of left lower extremity Is this a current diagnosis for this admission?: Yes - Time Time Spent with patient: 25-34 minutes Level of Care: IMCU Medications reviewed and adjusted accordingly: Yes Anticipated discharge: Home Anticipated DC Timeframe: within 72 hours - Inpatient Certification Based on my medical assessment, after consideration of the patient's comorbidities, presenting symptoms, or acuity I expect that the services needed warrant INPATIENT care.: Yes I certify that my determination is in accordance with my understanding of Medicare's requirements for reasonable and necessary INPATIENT services [42 CFR 412.3e].: Yes Medical Necessity: Significant Comorbidiites Make Outpatient Treatment Too Risky, Need Close Monitoring Due to Risk of Patient Decompensation, Need For Continuous Telemetry Monitoring, Risk of Complication if Not Cared For in Hospital, Risk of Diagnosis Which Will Require Inpatient Eval/Care/Monitoring Post Hospital Care: D/C Financial Rep Documentation - Plan Summary Plan Summary: His blood pressure remain elevated, I will add Hydralazine 25 mg po q 8hours to his anti CHF regimen with blood pressure lowering added benefit. Continue all other current medication management. Follow up on nephrology consultation and recommendations.
[2020-10-24 01:21] VITALS: BP 125/58
[2020-10-24] MEDS: HEPARIN SOD (PORCINE) 5,000 UNIT/ML 1 ML VIAL SUBCUT SCH (05:24)
[2020-10-24] MEDS: HYDRALAZINE HCL 25 MG TABLET PO SCH (05:25)
[2020-10-24] MEDS: ISOSORBIDE DINITRATE 20 MG TABLET PO SCH (05:25)
[2020-10-24] MEDS: PANTOPRAZOLE SODIUM 40 MG TABLET.DR PO SCH (05:25)
[2020-10-24 06:15] LABS: ABSOLUTE RETICS # 0.021 10^6/uL (0.028-0.122); HEMATOCRIT 25.4 % (37.9-51.0); HEMOGLOBIN 8.8 g/dL (13.5-17.0); MEAN CORPUSCULAR HEMOGLOBIN 29.5 pg (27.0-33.4); MEAN CORPUSCULAR HGB CONC 34.6 g/dL (32.0-36.0); MEAN CORPUSCULAR VOLUME 85 fl (80-97); PLATELET COUNT 255 10^3/uL (150-450); RED BLOOD COUNT 2.98 10^6/uL (4.35-5.55); RED CELL DISTRIBUTION WIDTH 12.8 % (11.5-14.0); RETICULOCYTE COUNT (AUTO) 0.72 % (0.66-2.85); WHITE BLOOD COUNT 7.6 10^3/uL (4.0-10.5)
[2020-10-24 06:30] LABS: ALBUMIN 2.6 g/dL (3.5-5.0); ALKALINE PHOSPHATASE 95 U/L (38-126); ANION GAP 8 (5-19); ASPARTATE AMINO TRANSFERASE 19 U/L (17-59); BILIRUBIN,DIRECT 0.2 mg/dL (0.0-0.4); BILIRUBIN,TOTAL 0.3 mg/dL (0.2-1.3); BLOOD UREA NITROGEN 62 mg/dL (7-20); CALCIUM 8.5 mg/dL (8.4-10.2); CARBON DIOXIDE 21 mmol/L (22-30); CHLORIDE 108 mmol/L (98-107); GLUCOSE 146 mg/dL (75-110); IRON(TIBC) 28.6 ug/dL (49-181); POTASSIUM 4.5 mmol/L (3.6-5.0)
--- NOTE | 2020-10-24 19:53 | XCELERA REPORT ---
[address] [address] Transthoracic Echocardiogram Report Name: DEB CUADRA Age: 50 yrs Gender: Male : 1970 Patient Status: Inpatient Patient Location: [address] [place] [address] Study Date: 10/23/2020 09:21 AM Height: 72 in Weight: 178 lb BSA: 2.0 m2 Procedure: A two-dimensional transthoracic echocardiogram with color flow and Doppler was performed. Study Quality: Fair. Reason For Study: Acute decompensation CHF; Acute on Chronic CKD Ordering Physician: SALOMON HUNT Performed By: Alexandra Pollard Interpretation Summary The left ventricle is mildly dilated. There is normal left ventricular wall thickness. LV EF is 25% to 30% Left ventricular systolic function is severely reduced. Doppler measurements suggest impaired left ventricular relaxation, which is associated with grade I/IV or mild diastolic dysfunction There is severe global hypokinesis of the left ventricle. There is no thrombus. No ASD ,VSD or PFO seen The right atrium is normal. The left atrial size is normal. There is no evidence of mitral valve prolapse. There is no vegetation seen on the mitral valve. There is no mitral valve stenosis. There is no aortic valvular vegetation. There is no aortic valve stenosis There is no LVOT obstruction. No aortic regurgitation is present. There is no tricuspid stenosis. There is a trace to mild amount of tricuspid regurgitation There is moderate pulmonary hypertension by echo RVSP is 49 to 54 mm of Hg , with RA mean of 15 to 20. There is no vegetation on the pulmonic valve. There is no pulmonic valvular stenosis. There is a trace amount of pulmonic regurgitation The aortic root is normal size. The inferior vena cava appeared dilated and decreased < 50% with respiration (RAP 15-20 mmHg) There is no pericardial effusion. Moderate size left pleural effusion. MMode/2D Measurements & Calculations RVDd: 2.7 cm LVIDd: 5.7 cm FS: 10.0 % Ao root diam: 3.2 cm IVSd: 1.4 cm LVIDs: 5.2 cm EDV(Teich): 161.9 ml Ao root area: 8.1 cm2 LVPWd: 0.94 cm ESV(Teich): 126.9 ml EF(Teich): 21.6 % Doppler Measurements & Calculations MV E max rocio: MV dec slope: Ao V2 max: LV V1 max P.9 cm/sec 1142 cm/sec2 116.2 cm/sec 3.3 mmHg MV A max rocio: MV dec time: Ao max P.4 mmHgLV V1 max: 31.2 cm/sec 0.13 sec 90.4 cm/sec MV E/A: 4.6 MR max rocio: PA V2 max: PI end-d rocio: TR max rocio: 603.6 cm/sec 69.8 cm/sec 191.3 cm/sec 292.8 cm/sec MR max PG: PA max P.9 mmHg TR max P.7 mmHg 34.3 mmHg Left Ventricle The left ventricle is mildly dilated. There is normal left ventricular wall thickness. LV EF is 25% to 30%. Left ventricular systolic function is severely reduced. Doppler measurements suggest impaired left ventricular relaxation, which is associated with grade I/IV or mild diastolic dysfunction. There is severe global hypokinesis of the left ventricle. There is no thrombus. No ASD ,VSD or PFO seen. Right Ventricle The right ventricle is normal in size and function. Atria The right atrium is normal. The left atrial size is normal. Mitral Valve There is no evidence of mitral valve prolapse. There is no vegetation seen on the mitral valve. There is no mitral valve stenosis. There is a moderate amount of mitral regurgitation. Aortic Valve There is no aortic valvular vegetation. There is no aortic valve stenosis. There is no LVOT obstruction. No aortic regurgitation is present. Tricuspid Valve There is no tricuspid stenosis. There is a trace to mild amount of tricuspid regurgitation. There is moderate pulmonary hypertension by echo. RVSP is 49 to 54 mm of Hg , with RA mean of 15 to 20. Pulmonic Valve There is no vegetation on the pulmonic valve. There is no pulmonic valvular stenosis. There is a trace amount of pulmonic regurgitation. Great Vessels The aortic root is normal size. The inferior vena cava appeared dilated and decreased < 50% with respiration (RAP 15-20 mmHg). Effusions There is no pericardial effusion. Moderate size left pleural effusion. : SALOMON HUNT Lakshmi
[2020-10-25 07:11] LABS: HEPATITS B SURFACE ANTIGEN Negative (Negative)
[2020-10-25 14:37] LABS: A/G RATIO 0.9 (0.7-1.7); ALBUMIN 2 2.6 g/dL (2.9-4.4); ALPHA-2-GLOBULIN 2 0.7 g/dL (0.4-1.0); BETA GLOBULINS 0.9 g/dL (0.7-1.3); GAMMA GLOBULIN 1.1 g/dL (0.4-1.8); MONOCLONAL SPIKE Not Observed g/dL (Not Observ); PROTEIN TOTAL SERUM 5.6 g/dL (6.0-8.5)
--- NOTE | 2020-10-25 19:21 | Left Against Medical Advice ---
Against Medical Advice Admission Date/Time: 10/21/20 18:44 Primary Care Provider: SALOMON HUNT Date of Patient Emigration: 10/24/20 - Diagnosis: (1) Acute on chronic systolic (congestive) heart failure Is this a current diagnosis for this admission?: Yes (2) Acute kidney injury Is this a current diagnosis for this admission?: Yes (3) Diabetes mellitus type 2 in nonobese Is this a current diagnosis for this admission?: Yes (4) Proteinuria Is this a current diagnosis for this admission?: Yes (5) Noncompliance Is this a current diagnosis for this admission?: Yes - Summary: Summary: Please see Admission and Progress Notes as well. DEB CUADRA is a 50 M, who LEFT AGAINST MEDICAL ADVICE. The Patient was admitted on 10/21/20 18:44.I did not see this patient refer to the attendings note for details
[2020-10-26 19:36] LABS: HCV FIBROSURE ALT P5P 18 IU/L (0-55); HCV FIBROSURE HAPTOGLOBIN 134 mg/dL (29-370); NECROINFLAM ACTIVITY GRADE A0-No activity (.); NECROINFLAMM ACTIVITY SCORE 0.06 (0.00-0.17)
== END 2020-10-24 07:58 | disposition left against medical advice (07) | DRG 292 ==
LOC: ER 09:14 → EH 18:44 → 3S 21:05
PROVIDERS: ADMIT Internal Medicine Geriatric Medicine; ATTEND Internal Medicine Geriatric Medicine
DX: I11.0 Hypertensive heart disease with heart failure (principal); N17.9 Acute kidney failure, unspecified; N18.5 Chronic kidney disease, stage 5; I50.23 Acute on chronic systolic (congestive) heart failure; I13.2 Hypertensive heart and chronic kidney disease with heart failure and with stage 5 chronic kidney disease, or end stage renal disease; E11.22 Type 2 diabetes mellitus with diabetic chronic kidney disease; E11.42 Type 2 diabetes mellitus with diabetic polyneuropathy; F17.210 Nicotine dependence, cigarettes, uncomplicated; R80.9 Proteinuria, unspecified; Z20.828 Contact with and (suspected) exposure to other viral communicable diseases; Z91.19 Patient's noncompliance with other medical treatment and regimen; Z88.6 Allergy status to analgesic agent; Z79.899 Other long term (current) drug therapy; Z89.512 Acquired absence of left leg below knee; Z97.14 Presence of artificial left leg (complete) (partial); I25.2 Old myocardial infarction; Z79.84 Long term (current) use of oral hypoglycemic drugs
CPT/HCPCS: 36415; 71045; 76770; 80053; 80061; 80307; 81001; 82172; 82247; 82570; 82607; 82728; 82746; 82803; 82962; 82977; 83010; 83036; 83540; 83550; 83880; 83883; 83970; 84100; 84156; 84165; 84443; 84460; 84484; 85025; 85027; 85045; 85379; 85610; 86038; 87340; 87880; 93005; 93010; 93306; 93971; 96374; 99285; 0241U; C9803; J1644; J1815; J1940; J3490